=== PATIENT | female | born 1955 | race Caucasian/White ===

== ENCOUNTER 2017-02-04 17:40 | Emergency (ER) | payer MEDICARE, MEDICAID ==
[2017-02-04] MEDS ORDERED: cloNIDine HCl 0.1 MG TAB ONE (21:04)
== END 2017-02-04 23:04 | disposition home or self-care (01) ==
LOC: ERS 17:40
DX: T82.838A Hemorrhage due to vascular prosthetic devices, implants and grafts, initial encounter (principal); N18.9 Chronic kidney disease, unspecified; I12.9 Hypertensive chronic kidney disease with stage 1 through stage 4 chronic kidney disease, or unspecified chronic kidney disease; I48.91 Unspecified atrial fibrillation; Z79.82 Long term (current) use of aspirin; Z79.899 Other long term (current) drug therapy
CPT/HCPCS: 12001

== ENCOUNTER 2017-02-24 10:58 | Outpatient (CLI) | payer MEDICARE, MEDICAID ==
--- NOTE | 2017-02-24 14:27 | RAD ---
PA AND LATERAL VIEWS OF CHEST: History Dyspnea. FINDINGS: Comparison is made with the exam of 12/24/16. The heart is enlarged. The aorta is tortuous. There is pulmonary vascular congestion. With right pl eural effusion. No pneumothoraces are seen. IMPRESSION: Stable exam. POS: [facility]
== END 2017-02-24 10:59 | disposition home or self-care (01) ==
LOC: RAD 10:58
PROVIDERS: ATTEND Internal Medicine Pulmonary Disease
DX: R06.00 Dyspnea, unspecified (principal)
CPT/HCPCS: 71020

== ENCOUNTER 2017-06-23 12:47 | Outpatient (CLI) | payer MEDICARE, MEDICAID ==
--- NOTE | 2017-06-23 15:27 | RAD ---
CHEST TWO VIEWS: History: Evaluate for tuberculosis. Comparison: 02-24-17 FINDINGS: Persistent cardiomegaly. Chronic changes in the lung bases. Hyperinflation is noted. No evidence of a cavitary lesion in either lung apex. No pneumothorax. IMPRESSION: 1. Cardiomegaly. 2. Chronic changes throughout the lung parenchyma. 3. No cavitary lesion. POS: [facility]
== END 2017-06-23 12:48 | disposition home or self-care (01) ==
LOC: RAD 12:47
PROVIDERS: ATTEND Internal Medicine Nephrology
DX: Z11.1 Encounter for screening for respiratory tuberculosis (principal); I51.7 Cardiomegaly
CPT/HCPCS: 71046

== ENCOUNTER 2017-09-02 14:53 | Outpatient (CLI) | payer MEDICARE, MEDICAID ==
--- NOTE | 2017-09-02 15:24 | RAD ---
CHEST 2 VIEWS: Date 09/02/17 HISTORY: Dyspnea. COMPARISON: 06/23/17. FINDINGS: Cardiac silhouette remains enlarged. Pulmonary vasculature is more engorged with increased reticulono dular interstitial prominence. Right pleural fluid is stable. Mediastinum midline. Postoperative neil ges upper abdomen. IMPRESSION: Slight interval increase in radiographic appearance of pulmonary edema. Right pleural fluid and cardi omegaly appear stable. POS: [facility]
== END 2017-09-02 14:54 | disposition home or self-care (01) ==
LOC: RAD 14:53
PROVIDERS: ATTEND Internal Medicine Pulmonary Disease
DX: R06.00 Dyspnea, unspecified (principal); J90 Pleural effusion, not elsewhere classified; I51.7 Cardiomegaly
CPT/HCPCS: 71046

== ENCOUNTER 2017-12-03 10:56 | Inpatient (IN) | payer MEDICAID, MEDICARE ==
[2017-12-03] MEDS ORDERED: hydrALAZINE 20 MG/ML VIAL ONE (11:49)
--- NOTE | 2017-12-03 11:49 | CT ---
CT BRAIN WITHOUT CONTRAST: HISTORY: A 62-year-old female with slurred speech, confusion, left sided weakness, and a left facial droop. COMPARISON: 07/18/2016 FINDINGS: Changes of cortical atrophy and an old lacunar infarction in the left basal ganglia are again noted. The ventricular size is stable, and the basilar cisterns are patent. No evidence of acute infarct, hemorrhage, midline shift, or abnormal extraaxial fluid collections is seen. The bony calvarium is i ntact. The visualized paranasal sinuses and left mastoid air cells are well aerated. There is hypop lasia of the right mastoid air cells. IMPRESSION: No CT evidence of acute intracranial process. Discussed over the telephone with ER physician, Dr. Hanna, at 11:08 a.m. CODE CR POS: [facility]
[2017-12-03 11:58] LABS: #Basophils 0.2 thou/uL (0.0-0.2); #Eosinphils 0.1 thou/uL (0.0-0.7); #Lymphocytes 1.4 thou/uL (1.20-3.40); #Monocytes 0.9 thou/uL (0.11-0.59); #Neutrophils 7.7 thou/uL (1.40-6.50); %Basophils 1.8 % (0.0-1.0); %Eosinophils 0.7 % (0.0-10.0); %Lymphocytes 13.6 % (21.0-51.0); %Monocytes 8.7 % (0.0-10.0); %Neutrophils 75.2 % (42.0-75.0); Hemoglobin 11.9 g/dL (12.0-16.0); Platelet Count 233 thou/uL (130-400); RBC Distribution Width 13.9 % (11.5-14.5); Red Blood Cell (RBC) Count 3.59 mill/uL (4.20-5.40); White Blood Cell (WBC) Count 10.3 thou/uL (4.8-10.8)
[2017-12-03 12:06] LABS: PTT 30.5 SEC (22.9-36.1)
[2017-12-03 12:07] LABS: INR-International Normal Ratio 1.3; Prothrombin Time 16.6 SEC (12.0-14.7)
--- NOTE | 2017-12-03 12:12 | RAD ---
ONE VIEW CHEST: History: Stroke alert. Comparison: 10-02-16, 09-02-17 FINDINGS: There is an enlarged cardiac silhouette. The pulmonary vessels are slightly prominent. Pulmonary hilu m is unremarkable. There is persistent elevation right hemidiaphragm with blunting of the right costo phrenic angle likely due to areas of scar. Stable mild thickening of the minor fissure. Stable aerati on of the left lung. There is no pneumothorax or osseous abnormalities. IMPRESSION: Cardiomegaly. No acute cardiopulmonary process. No significant interval change. POS: [facility]
[2017-12-03 12:25] LABS: ALT (SGPT) 9 U/L (8-55); AST (SGOT) 22 U/L (5-34); Albumin 4.1 g/dL (3.4-4.8); Alkaline Phosphatase 90 U/L (40-150); Anion Gap 24 mmol/L (10-20); BUN (Urea Nitrogen) 65 mg/dL (9.8-20.1); Bilirubin, Total 1.6 mg/dL (0.2-1.2); CK (CPK) 209 U/L (29-168); Calc. Creatinine Clearance 0 mL/min (70-130); Calcium 9.6 mg/dL (7.8-10.44); Carbon Dioxide 21 mmol/L (23-31); Chloride 99 mmol/L (98-107); Estimated GFR-MDRD 3; Globulin 3.7 g/dL (2.4-3.5); Glucose 85 mg/dL (80-115); Protein, Total 7.8 g/dL (6.0-8.3); Sodium 137 mmol/L (136-145)
[2017-12-03] MEDS ORDERED: Ondansetron ODT 4 MG TAB ONE (12:28)
[2017-12-03 12:37] LABS: Potassium 7.2 mmol/L (3.5-5.1)
[2017-12-03] MEDS ORDERED: Calcium Gluc 4.6 MEQ/10 ML (100 MG/ML) ONE (12:57)
[2017-12-03 13:04] LABS: Bilirubin Negative (Negative); Blood, Urine Small (Negative); Clarity CLEAR (Clear); Glucose, Urine (Dipstick) Negative (Negative); Leukocyte Negative (Negative); Nitrite Negative (Negative); Protein, Urine (Dipstick) > or equal to 300 mg/dL (Neg-Trace); Urobilinogen 0.2 mg/dL (0.2-1.0)
[2017-12-03 13:10] LABS: Bacteria/HPF None Seen HPF (None Seen); Hyaline Casts/LPF NONE SEEN LPF (0-3 Hyaline); RBC/HPF 0-3 HPF (0-3); Squamous Epithelial 0-3 HPF (0-3); WBC/HPF None Seen HPF (0-3)
[2017-12-03 13:13] LABS: Amphetamine Not Detected (NotDetected); Barbiturates Screen Not Detected (NotDetected); Benzodiazepine Screen Not Detected (NotDetected); Cocaine Metabolite Screen Not Detected (NotDetected); Medtox Control Line Valid? VALID (VALID); Medtox Reader # READER 1; Methadone Not Detected (NotDetected); Methamphetamine Not Detected (NotDetected); Opiate Screen Not Detected (NotDetected); Oxycodone Screen Not Detected (NotDetected); Phencyclidine (PCP) Not Detected (NotDetected); THC/Cannabinoid Screen Not Detected (NotDetected); Tricyclic Screen Not Detected (NotDetected)
[2017-12-03] MEDS ORDERED: Acetaminophen 325 MG TAB PO PRN (15:34)
[2017-12-03] MEDS ORDERED: Ondansetron HCl/PF 4 MG/2 ML Vial IVP PRN (15:34)
[2017-12-03] MEDS ORDERED: Ondansetron ODT 4 MG TAB SL PRN (15:34)
[2017-12-03 17:03] LABS: Troponin I 0.046 ng/mL (< 0.028)
--- NOTE | 2017-12-03 18:41 | CON ---
DATE OF CONSULTATION: 12/03/2017 RENAL MEDICINE HISTORY OF PRESENT ILLNESS: Ms. Berry is a 62-year-old white female with ESRD and admitted for menta l status change. She was noted to have slurred speech with left-sided weakness. CT scan of the head was done which showed no acute intracranial abnormality. During the initial workup, she was noted t o be hyperkalemic, hence renal consultation. She is currently undergoing emergent hemodialysis for t he hyperkalemia. REVIEW OF SYSTEMS: Positive for confusion, positive for left-sided weakness. No nausea, no vomiting , no syncopal episode, no productive cough, no fever or chills, no headache, no diplopia, no hematoch ezia, no melena, no hematemesis. Positive for confusion. No fever or chills, no gross hematuria, no melena, no hematemesis. No nausea, no vomiting, no shortness of breath. HOME MEDICATIONS: Includes the following levetiracetam 250 mg once a day, metoprolol tartrate 100 mg b.i.d., diltiazem 90 mg once a day. Previous review of her records shows at one time, she was taking Eliquis 2.5 mg p.o. b.i.d., Lipitor 40 mg at bedtime, Multaq 400 mg p.o. b.i.d.?, Renvela 800 mg t.i.d. with meals. PAST MEDICAL HISTORY: Includes the following; seizure disorder, ? of atrial fibrillation, hyperlipid emia, ESRD, currently on maintenance hemodialysis Friday, Friday, and Friday, history of status po st CHF. PAST SURGICAL HISTORY: Includes the following, 1. Status post AV fistula placement. 2. Status post chest tube placement. 3. Status post pulmonary decortication. 4. Status post cuffed hemodialysis catheter placement. 5. Status post cardiac catheterization. 6. Status post cardiac ablation therapy. 7. Status post left nephrectomy. 8. Status post tonsillectomy. 9. Status post parathyroidectomy. 10. Status post splenectomy. SOCIAL HISTORY: Patient currently lives in [place], , 2 children, retired [employer]. No history of s moking, no alcohol intake, no drug abuse. Status post multiple blood transfusions. ALLERGIES: IV DYE and LEVAQUIN. TRAUMA: None. IMMUNIZATIONS: Up to date. HOSPITALIZATIONS: Please see past medical history. FAMILY HISTORY: No family history of ESRD. PHYSICAL EXAMINATION: VITAL SIGNS: Initial blood pressure 206/101, heart rate 73, respiratory rate 31, temperature 97.9, O 2 sat 93%. GENERAL: Awake, confused, not in overt distress. SKIN: Adequate turgor. HEENT: She has slightly pale conjunctivae, anicteric sclerae. NECK: No neck mass, no carotid bruits, no JVD. CHEST: No deformities. LUNGS: Clear breath sounds. HEART: Normal sinus rhythm. No murmur, no gallops, no rubs. ABDOMEN: Globular, soft, nontender, no masses. EXTREMITIES: No edema. NEUROLOGIC: Left-sided weakness. Patient is positive for confusion. No tremors or asterixis. LABORATORY DATA AND IMAGING DATA: Laboratories of 12/03/2017; white count 10.2, hemoglobin 11.9. CT scan of the head, no acute intracranial abnormality. Sodium 137, potassium 7.2, chloride 99, carbon dioxide 21, BUN 65, creatinine 12.77, glucose 85, calcium 9.6, AST 22, ALT 9, albumin 4.1, troponin I 0.040. Chest x-ray shows no CHF or infiltrates. ASSESSMENT AND PLAN: 1. Mental status change with left-sided weakness, rule out cerebrovascular accident. Patient's init ial CT scan is negative. Continue to observe. Neurology consult as needed. 2. End-stage renal disease - patient has missed dialysis for about a week. Due to the severe hyperk alemia, she is undergoing emergent hemodialysis. My plan is to continue her regular dialysis on , Friday, and Friday. Fluid removal only as tolerated. Overall, agree with current management. Recheck base met and CBC in a.m.
[2017-12-03] MEDS ORDERED: hydrALAZINE 20 MG/ML VIAL SLOW IVP SCH (19:15)
[2017-12-03] MEDS ORDERED: hydrALAZINE 20 MG/ML VIAL SLOW IVP PRN (20:31)
[2017-12-03] MEDS ORDERED: Ondansetron ODT 4 MG TAB PO PRN (20:31)
[2017-12-03] MEDS ORDERED: cloNIDine 0.1 MG TAB PO PRN (20:31)
[2017-12-03] MEDS ORDERED: Acetaminophen 500 MG TAB PO PRN (20:31)
[2017-12-03] MEDS: Famotidine/PF 20 mg/2ml Vial SLOW IVP SCH (21:30)
--- NOTE | 2017-12-03 23:32 | HP ---
DATE OF ADMISSION: 12/03/2017 PRIMARY CARE PROVIDER: Dr. Penelope Chong. CHIEF COMPLAINT: Altered mental status. HISTORY OF PRESENT ILLNESS: This is a 62-year-old female who presented to [facility] Emergency Department via EMS transport after patient was noted with decreased mentation, lethargy , slurred speech by her . The history is obtained after discussions with the ER attending as well as the patient's as the patient is unable to provide any coherent history due to letharg y and altered mentation. The patient was apparently noted with increasing lethargy approximately 11: 45 p.m. on 12/02/2017. The patient was noted with increasing lethargy, which prompted the patient to call EMS personnel after he was concerned the patient's presenting symptoms and signs that looked li ke a stroke. The patient apparently has missed her regular maintenance hemodialysis sessions over last week according to family members. In the emergency room, the patient underwent comprehensive evaluation including screening metabolic panel as well as CT of the brain showing no acute process. The patient was noted with elevated potassium at 7.2 and underwent emergent hemodialysis at [facility]. The patient also received albuterol, an amp of D50, Novolin R, calcium g luconate, Zofran, and hydralazine. The patient was transferred to the telemetry unit after emergent hemodialysis. PAST MEDICAL HISTORY: 1. End-stage renal disease with current hemodialysis Friday, Friday, and Friday. 2. Noncompliance. 3. Diastolic congestive heart failure. 4. Anemia secondary to chronic kidney disease. 5. History of epilepsy. 6. Paroxysmal atrial fibrillation. 7. Hypertension. 8. History of pleural effusion, status post PleurX catheter placement with subsequent removal. 9. Pulmonary hypertension. 10. History of CVA. PAST SURGICAL HISTORY: 1. Status post left nephrectomy. 2. Status post splenectomy. 3. Status post right upper extremity AV fistula placement. 4. Status post PEG tube placement. 5. Status post PleurX catheter placement with subsequent removal. 6. Status post decortication of the lung. 7. Status post thyroidectomy. 8. Status post tonsillectomy. CURRENT MEDICATIONS: Based on previous admission in 2017. 1. Eliquis 2.5 mg p.o. b.i.d. 2. Lipitor 40 mg p.o. daily. 3. Tums 1000 mg p.o. q.4 hours p.r.n. 4. Diltiazem 90 mg p.o. t.i.d. 5. Docusate 100 mg p.o. daily. 6. Multaq 400 mg p.o. b.i.d. 7. Procrit 7500 units subcutaneously q.7 days. 8. Folic acid 1 mg p.o. daily. 9. Renvela 800 mg p.o. t.i.d. 10. Metoprolol 100 mg p.o. b.i.d. 11. Aspirin 81 mg p.o. daily. 12. Keppra 250 mg Friday, Friday, and Friday after dialysis and 500 mg daily in addition to dialy sis. ALLERGIES: IODINE and LEVAQUIN. FAMILY HISTORY: Positive for hypertension. SOCIAL HISTORY: The patient resides in [place], [place]. No current alcohol, tobacco, or illicit drug u se. REVIEW OF SYSTEMS: Unobtainable as the patient obtunded with altered mentation. PHYSICAL EXAMINATION: VITAL SIGNS: Currently, blood pressure 207/97, pulse is 66, respiratory rate 18, temperature 96.4 de grees Fahrenheit, O2 saturation 97% on 2 liters per minute by nasal cannula. GENERAL APPEARANCE: This is a 62-year-old female, lethargic, unresponsive except for painf ul stimulus lying on the hospital bed. HEENT: Pupils are equal, round, and reactive to light and accommodation. Extraocular muscles are in tact. No scleral icterus, no conjunctival injection. Nares patent. OP is clear. Protuberant tongu e noted. NECK: Supple. No cervical adenopathy, no thyromegaly, no carotid bruits, no JVD appreciated. Cervi dany spine with full active and passive range of motion. CHEST: Lungs are clear to auscultation bilaterally. CARDIOVASCULAR: S1, S2, without noted murmur, rub, or gallop. ABDOMEN: Scaphoid, nontender. Bowel sounds are positive in all four quadrants. There is no hepatos plenomegaly, no abdominal bruits, no rebound or guarding appreciated. EXTREMITIES: Generalized muscle atrophy noted. No lower extremity edema noted. Pulses palpable dis tally at the dorsalis pedis, posterior tibial, and popliteal arteries bilaterally. Capillary refill less than 2 seconds. NEUROLOGIC: Obtunded except for responding to painful stimuli. Occasional movement of the left arm during the exam. PERTINENT LABORATORY AND X-RAY FINDINGS: Sodium 137, potassium 7.2, chloride 99, CO2 of 21, BUN 65, creatinine 12.77, estimated GFR 3, glucose 85, calcium 9.6, total bilirubin 1.6. AST 22, ALT 9, eva line phosphatase 90, total CK 209. Troponin I ranged between 0.040-0.050. Albumin 4.1. CBC showed a white blood cell count of 10.3, hemoglobin 12, hematocrit 37, MCV 103, platelet count 233 with 75% neutrophils. PT 16.6, INR 1.3, PTT 30.5. Urine drug screen dated 12/03/2017, negative. CT of the b rain without contrast dated 12/03/2017, showed no acute intracranial process. Portable chest x-ray d ated 12/03/2017 showed no acute cardiopulmonary process. EKG dated 12/03/2017 by my interpretation s hows sinus mechanism with heart rates in the 70s. Right bundle branch block pattern noted. Left axi s deviation. No acute ST-T wave changes appreciated. ASSESSMENT AND PLAN: 1. Acute toxic metabolic encephalopathy. Suspect secondarily to uremia. We will continue hemodialy sis for control of uremia. Continue supportive measures. Treat underlying etiology. Serial neurolo gic assessment. 2. Severe hyperkalemia. Secondary to missed hemodialysis stated previously. Emergent hemodialysis performed at the time of admission. Continue serial potassium as of trending. 3. End-stage renal disease with missed hemodialysis. We will continue maintenance hemodialysis at t he direction of the Nephrology Service. 4. Hypertension. Labile. We will resume home antihypertensive regimen when patient safe for oral i ntake. Hydralazine 20 mg IV q.4 hours p.r.n., systolic greater than 170. 5. Seizure disorder. We will resume home Keppra dosing after confirmation with family members. 6. Prophylaxis. Sequential compression devices while in bed. Pepcid 20 mg IV q.12 hours. PT evalu ation when ambulating and medically stable. 7. Code status is FULL. Surrogate medical decision maker is patient's spouse.
[2017-12-04] MEDS: Ondansetron HCl/PF 4 MG/2 ML Vial IVP PRN ×4 (00:34→21:50)
[2017-12-04 05:13] LABS: ALT (SGPT) 9 U/L (8-55); AST (SGOT) 16 U/L (5-34); Albumin 3.8 g/dL (3.4-4.8); Alkaline Phosphatase 81 U/L (40-150); Anion Gap 21 mmol/L (10-20); BUN (Urea Nitrogen) 21 mg/dL (9.8-20.1); Bilirubin, Total 1.3 mg/dL (0.2-1.2); Calc. Creatinine Clearance 7 mL/min (70-130); Carbon Dioxide 25 mmol/L (23-31); Chloride 98 mmol/L (98-107); Estimated GFR-MDRD 7; Globulin 3.5 g/dL (2.4-3.5); Glucose 63 mg/dL (80-115); Potassium 5.2 mmol/L (3.5-5.1); Protein, Total 7.3 g/dL (6.0-8.3); Sodium 139 mmol/L (136-145)
[2017-12-04 05:27] LABS: Band 2 % (5-11); Hemoglobin 11.2 g/dL (12.0-16.0); Lymphocytes 14 % (21-51); MDiff Complete? YES; Mean Corpuscular HGB CONC 32.4 g/dL (32.0-36.0); Mean Corpuscular Hemoglobin 33.4 pg (27.0-31.0); Monocytes 4 % (0-10); Neutrophil 80 % (42-75); Platelet Count 241 thou/uL (130-400); RBC Distribution Width 14.3 % (11.5-14.5); Red Blood Cell (RBC) Count 3.35 mill/uL (4.20-5.40); White Blood Cell (WBC) Count 9.3 thou/uL (4.8-10.8)
[2017-12-04] MEDS ORDERED: Prevnar 13-Val Conj/PF 0.5 ML SYRINGE IM ONE (09:00)
--- NOTE | 2017-12-04 09:44 | PRG ---
DATE OF SERVICE: 12/04/2017 SUBJECTIVE: Ms. Berry is a 62-year-old white female with ESRD and admitted for mental status change. She has not reported for dialysis for about a week. Due to the hyperkalemia yesterday, she underwe nt emergent hemodialysis. She is mentating better, although she is still occasionally confused. No complaints of chest pain or shortness of breath. PHYSICAL EXAMINATION: VITAL SIGNS: Blood pressure 155/73, heart rate 67, respiratory rate 16, temperature 97.9, pulse oxim etry 95%. GENERAL: Noted to be awake, supine, comfortable, not in overt distress. SKIN: Adequate turgor. HEENT: Pinkish conjunctivae, anicteric sclerae. NECK: No neck mass, no carotid bruits, no JVD. CHEST: No deformities. LUNGS: Clear breath sounds. No wheezing, no crackles. HEART: Normal sinus rhythm. No murmur, no gallops or rubs. ABDOMEN: Globular, soft, nontender, no masses. EXTREMITIES: No edema, no deformities. MEDICATIONS: 12/04/2017 - Reviewed. LABORATORY: 12/04/2017 - White count 9.3, hemoglobin 11.2. Sodium 139, potassium 5.2, chloride 98, carbon dioxide 25, BUN 21, creatinine 6.03, glucose 63, AST 16, ALT 9, albumin 3.8. ASSESSMENT AND PLAN: 1. Mental status change - much improved. CT scan of the brain did not show any acute intracranial a bnormality. This could be a reflection of possible uremic symptoms with this patient. We will cristino nue to Friday, Friday, Friday dialysis. No indication for any emergent dialysis today. 2. End-stage renal disease, stable. Continue Friday, Friday, Friday dialysis. Fluid removal as tolerated. 3. Hyperkalemia, much improved with dialysis. Continue supportive care.
--- NOTE | 2017-12-04 15:49 | PDOC.PN ---
- Subjective Encounter Start Date: 12/04/17 Encounter Start Time: 15:35 Subjective: f/u for encephalopathy due to uremia and life-threatening hyperkalemia -: tx with emergent HD. Overall feeling better, more alert. - Objective Resuscitation Status: Resuscitation Status FULL:Full Resuscitation MAR Reviewed: Yes Vital Signs & Weight: Vital Signs (12 hours) Temp Pulse Pulse Pulse Resp BP BP 12/04/17 15:12 98.4 F 68 16 12/04/17 11:44 97.7 F 67 18 12/04/17 09:40 72 71 139/67 153/76 H 12/04/17 07:39 97.9 F 67 16 12/04/17 03:56 98.6 F 67 22 H BP Pulse Ox Pulse Ox Pulse Ox 12/04/17 15:12 165/86 H 95 12/04/17 11:44 162/78 H 97 12/04/17 09:40 94 L 93 L 12/04/17 07:39 155/73 H 95 12/04/17 03:56 149/70 H 96 Weight Admit Weight 108 lb Weight 108 lb I&O: 12/03/17 12/04/17 12/05/17 06:59 06:59 06:59 Intake Total 0 Output Total 150 Balance -150 Result Diagrams: 12/04/17 04:02 12/04/17 04:02 Additional Labs: Microbiology 12/03/17 12:53 Urine Straight Catheter Urine Culture - Preliminary NO GROWTH AT 24 HOURS Laboratory Tests 12/03/17 12/03/17 12/03/17 11:45 11:45 11:45 Hgb 11.9 L Potassium 7.2 H* BUN 65 H Creatinine 12.77 H Troponin I 0.040 H 12/03/17 12/03/17 14:55 18:49 Hgb Potassium BUN Creatinine Troponin I 0.046 H 0.050 H Radiology Reviewed by me: Yes (CT brain - no acute intracranial process) EKG Reviewed by me: Yes (Tele - SR) Phys Exam - Physical Examination Constitutional: NAD protuberant tongue HEENT: PERRLA, sclera anicteric, oral pharynx no lesions Neck: no nodes, no JVD, supple, full ROM Respiratory: no wheezing, no rales, no rhonchi, clear to auscultation bilateral S1, S2 Cardiovascular: RRR, no significant murmur, no rub, gallop Gastrointestinal: soft, non-tender, no distention, positive bowel sounds Musculoskeletal: no edema, pulses present Neurological: normal sensation, moves all 4 limbs Skin: no rash, normal turgor, cap refill <2 seconds Dx/Plan (1) Acute hyperkalemia Code(s): E87.5 - HYPERKALEMIA Status: Acute Comment: s/p emergent HD with correction, serial K+ monitoring, secondary to non-compliance with HD (2) Toxic metabolic encephalopathy Code(s): G92 - TOXIC ENCEPHALOPATHY Status: Acute Comment: Likely due to uremia, improved, supportive mgmt, HD as outlined in #1 (3) Uremia of renal origin Code(s): N19 - UNSPECIFIED KIDNEY FAILURE Status: Acute Comment: See above, improved with HD (4) ESRD (end stage renal disease) on dialysis Code(s): N18.6 - END STAGE RENAL DISEASE; Z99.2 - DEPENDENCE ON RENAL DIALYSIS Status: Chronic Comment: HD per Renal service, encourage outpt compliance with HD - Plan PT/OT, social media job titles, out of bed/ambulate, DVT proph w/SCDs Stable overall -: Continue HD per Renal service -: Resume home BP regimen -: Restart Keppra -: AM lab: BMP, CBC * .
[2017-12-04] MEDS: Sevelamer Carbonate 800 MG TAB PO SCH (18:19)
[2017-12-04] MEDS: Metoprolol Tartrate 100 MG TAB PO SCH (21:50)
[2017-12-04] MEDS: Famotidine/PF 20 mg/2ml Vial SLOW IVP SCH (21:50)
[2017-12-05 04:49] LABS: #Basophils 0.2 thou/uL (0.0-0.2); #Eosinphils 0.3 thou/uL (0.0-0.7); #Lymphocytes 1.9 thou/uL (1.20-3.40); #Monocytes 0.7 thou/uL (0.11-0.59); #Neutrophils 5.8 thou/uL (1.40-6.50); %Basophils 1.7 % (0.0-1.0); %Eosinophils 3.1 % (0.0-10.0); %Lymphocytes 21.7 % (21.0-51.0); %Monocytes 8.3 % (0.0-10.0); %Neutrophils 65.2 % (42.0-75.0); Hemoglobin 11.1 g/dL (12.0-16.0); Mean Corpuscular HGB CONC 33.2 g/dL (32.0-36.0); Mean Corpuscular Hemoglobin 34.3 pg (27.0-31.0); Mean Platelet Volume 8.7 fL (7.4-10.4); Platelet Count 238 thou/uL (130-400); Red Blood Cell (RBC) Count 3.24 mill/uL (4.20-5.40); White Blood Cell (WBC) Count 8.9 thou/uL (4.8-10.8)
[2017-12-05 05:11] LABS: Anion Gap 16 mmol/L (10-20); BUN (Urea Nitrogen) 30 mg/dL (9.8-20.1); Calc. Creatinine Clearance 5 mL/min (70-130); Calcium 8.5 mg/dL (7.8-10.44); Carbon Dioxide 28 mmol/L (23-31); Chloride 97 mmol/L (98-107); Estimated GFR-MDRD 5; Glucose 87 mg/dL (80-115); Potassium 4.8 mmol/L (3.5-5.1); Sodium 136 mmol/L (136-145)
--- NOTE | 2017-12-05 07:33 | PRG ---
DATE OF SERVICE: 12/05/2017 SUBJECTIVE: Ms. Beryr was seen this morning. She is feeling better. She is less confused. She den ies any chest pain, shortness of breath. PHYSICAL EXAMINATION: VITAL SIGNS: Blood pressure is 167/76, heart rate 55, respiratory rate 20, temperature 97.4, pulse o x 96%. GENERAL: Awake, alert, comfortable, not in overt distress. SKIN: Adequate turgor. HEENT: She has pinkish conjunctivae, anicteric sclerae. NECK: No neck mass, no carotid bruits, no JVD. CHEST: No deformities. LUNGS: Clear breath sounds. No wheezing, no crackles. HEART: Normal sinus rhythm. No murmur, no gallops or rubs. ABDOMEN: Globular, soft, nontender, no masses. EXTREMITIES: No edema, no deformities. MEDICATIONS: 12/05/2017 - Reviewed. LABORATORY: 12/05/2017 - White count 8.9, hemoglobin 11.1. Sodium 136, potassium 4.8, chloride 97, carbon dioxide 28, BUN 30, creatinine 8.05, glucose 87, calcium 8.5. ASSESSMENT AND PLAN: 1. End-stage renal disease, stable. We will continue current Friday, Friday, Friday dialysis. A gain, fluid removal as tolerated. 2. Mental status change. This could have been secondary from her uremic symptoms since she did not dialyze for a week. After dialysis, her mentation is much improved. Continue supportive care. I agree with current management.
[2017-12-05] MEDS: Sevelamer Carbonate 800 MG TAB PO SCH ×3 (08:36→17:55)
[2017-12-05] MEDS: levETIRAcetam 500 MG TAB PO SCH ×2 (08:38→15:43)
[2017-12-05] MEDS: Metoprolol Tartrate 100 MG TAB PO SCH ×2 (08:38→20:07)
[2017-12-05] MEDS: Folic Acid 1 MG TAB PO SCH (13:00)
--- NOTE | 2017-12-05 13:57 | PDOC.PN ---
- Subjective Encounter Start Date: 12/05/17 Encounter Start Time: 13:45 Subjective: f/u for encephalopathy and ESRD with hyperkalemia. Overall improved -: and mentally clearer. HD completed today. - Objective Resuscitation Status: Resuscitation Status FULL:Full Resuscitation MAR Reviewed: Yes Vital Signs & Weight: Vital Signs (12 hours) Temp Pulse Resp BP Pulse Ox 12/05/17 12:55 98.4 F 58 L 16 155/71 H 93 L 12/05/17 08:57 178/95 H 12/05/17 07:38 97.6 F 60 16 191/92 H 92 L 12/05/17 04:00 97.4 F L 55 L 20 167/76 H 96 Weight Admit Weight 108 lb Weight 108 lb 9.6 oz I&O: 12/04/17 12/05/17 12/06/17 06:59 06:59 06:59 Intake Total 0 960 Output Total 150 50 Balance -150 910 Result Diagrams: 12/05/17 04:01 12/05/17 04:01 Additional Labs: Microbiology 12/03/17 12:53 Urine Straight Catheter Urine Culture - Final NO GROWTH AT 48 HOURS 12/03/17 12:53 Urine Straight Catheter Urine Culture - Preliminary NO GROWTH AT 24 HOURS Laboratory Tests 12/03/17 12/03/17 12/03/17 11:45 11:45 11:45 Hgb 11.9 L Potassium 7.2 H* BUN 65 H Creatinine 12.77 H Troponin I 0.040 H 12/03/17 12/03/17 14:55 18:49 Hgb Potassium BUN Creatinine Troponin I 0.046 H 0.050 H EKG Reviewed by me: Yes (Tele - SR in 50-60's) Phys Exam - Physical Examination awakens to name, responds briefly to questions + protuberant tongue HEENT: PERRLA, sclera anicteric, oral pharynx no lesions Neck: no nodes, no JVD, supple, full ROM Respiratory: no wheezing, no rales, no rhonchi, clear to auscultation bilateral S1, S2 Cardiovascular: RRR, no significant murmur, no rub, gallop Gastrointestinal: soft, non-tender, no distention, positive bowel sounds Musculoskeletal: no edema, pulses present Neurological: normal sensation, moves all 4 limbs A x O x 2 Skin: no rash, normal turgor, cap refill <2 seconds Dx/Plan (1) Acute hyperkalemia Code(s): E87.5 - HYPERKALEMIA Status: Acute Comment: s/p emergent HD with correction, serial K+ monitoring, secondary to non-compliance with HD (2) Toxic metabolic encephalopathy Code(s): G92 - TOXIC ENCEPHALOPATHY Status: Acute Comment: Likely due to uremia, improved, supportive mgmt, HD as outlined in #1 (3) Uremia of renal origin Code(s): N19 - UNSPECIFIED KIDNEY FAILURE Status: Acute Comment: See above, improved with HD (4) ESRD (end stage renal disease) on dialysis Code(s): N18.6 - END STAGE RENAL DISEASE; Z99.2 - DEPENDENCE ON RENAL DIALYSIS Status: Chronic Comment: HD per Renal service, encourage outpt compliance with HD (5) Hypertension Code(s): I10 - ESSENTIAL (PRIMARY) HYPERTENSION Status: Chronic Qualifiers: Hypertension type: essential hypertension Qualified Code(s): I10 - Essential (primary) hypertension Comment: labile, add Hydralazine 25mg TID, continue Metoprolol 100mg BID - Plan PT/OT, social media manager, out of bed/ambulate, DVT proph w/SCDs Stable overall -: Add Hydralazine 25mg po TID -: HD per Renal service -: OOB with PT -: Likely back to [place] [facility] 12/06/17 * .
[2017-12-05] MEDS: hydrALAZINE 25 MG TAB PO SCH ×2 (15:42→20:06)
[2017-12-05] MEDS: Famotidine 20 MG TAB PO SCH (20:07)
--- NOTE | 2017-12-06 08:12 | PDOC.PN ---
- Subjective Encounter Start Date: 12/06/17 Encounter Start Time: 08:10 Subjective: feels much better. no new complaints today -: denies any CP/SOB/Abd pain -: able to answer Qs appropriately - Objective Resuscitation Status: Resuscitation Status FULL:Full Resuscitation MAR Reviewed: Yes Vital Signs & Weight: Vital Signs (12 hours) Temp Pulse Resp BP Pulse Ox 12/06/17 05:28 99.2 F 56 L 16 134/62 95 Weight Admit Weight 108 lb Weight 103 lb 6.4 oz I&O: 12/05/17 12/06/17 12/07/17 06:59 06:59 06:59 Intake Total 960 1120 Output Total 50 0 Balance 910 1120 Result Diagrams: 12/05/17 04:01 12/05/17 04:01 Additional Labs: Microbiology 12/03/17 12:53 Urine Straight Catheter Urine Culture - Final NO GROWTH AT 48 HOURS Laboratory Tests 12/03/17 12/03/17 12/03/17 11:45 11:45 14:55 Potassium 7.2 H* Creatinine 12.77 H Troponin I 0.040 H 0.046 H 12/03/17 12/04/17 12/05/17 18:49 04:02 04:01 Potassium 5.2 H 4.8 Creatinine 6.03 H 8.05 H Troponin I 0.050 H labs reviewed Phys Exam - Physical Examination Constitutional: NAD HEENT: PERRLA, moist MMs, sclera anicteric, oral pharynx no lesions Neck: no nodes, no JVD, supple, full ROM Respiratory: no wheezing, no rales, no rhonchi, clear to auscultation bilateral Cardiovascular: RRR, no significant murmur, no rub Gastrointestinal: soft, non-tender, no distention, positive bowel sounds Musculoskeletal: no edema, pulses present Neurological: non-focal, normal sensation, moves all 4 limbs Psychiatric: normal affect, A&O x 3 Skin: no rash Dx/Plan (1) Acute hyperkalemia Code(s): E87.5 - HYPERKALEMIA Status: Acute Comment: s/p emergent HD with correction, serial K+ monitoring, secondary to non-compliance with HD (2) Toxic metabolic encephalopathy Code(s): G92 - TOXIC ENCEPHALOPATHY Status: Acute Comment: Likely due to uremia, improved, supportive mgmt, HD as outlined in #1 (3) Uremia of renal origin Code(s): N19 - UNSPECIFIED KIDNEY FAILURE Status: Acute Comment: See above, improved with HD (4) Acute on chronic kidney failure Code(s): N17.9 - ACUTE KIDNEY FAILURE, UNSPECIFIED; N18.9 - CHRONIC KIDNEY DISEASE, UNSPECIFIED Status: Chronic (5) Anemia, chronic renal failure Code(s): N18.9 - CHRONIC KIDNEY DISEASE, UNSPECIFIED; D63.1 - ANEMIA IN CHRONIC KIDNEY DISEASE Status: Chronic (6) Chronic a-fib Code(s): I48.2 - CHRONIC ATRIAL FIBRILLATION Status: Chronic Comment: patient can not confirm her Eliquis (7) Diastolic CHF Code(s): I50.30 - UNSPECIFIED DIASTOLIC (CONGESTIVE) HEART FAILURE Status: Chronic (8) ESRD (end stage renal disease) on dialysis Code(s): N18.6 - END STAGE RENAL DISEASE; Z99.2 - DEPENDENCE ON RENAL DIALYSIS Status: Chronic Comment: HD per Renal service, encourage outpt compliance with HD (9) Hypertension Code(s): I10 - ESSENTIAL (PRIMARY) HYPERTENSION Status: Chronic Qualifiers: Hypertension type: essential hypertension Qualified Code(s): I10 - Essential (primary) hypertension Comment: labile, added Hydralazine 25mg TID, continue Metoprolol 100mg BID (10) Seizure disorder Code(s): G40.909 - EPILEPSY, UNSP, NOT INTRACTABLE, WITHOUT STATUS EPILEPTICUS Status: Chronic (11) Chronic respiratory failure Code(s): J96.10 - CHRONIC RESPIRATORY FAILURE, UNSP W HYPOXIA OR HYPERCAPNIA Status: Chronic - Plan continue antibiotics, PT/OT, respiratory therapy, incentive spirometry, out of bed/ambulate, DVT proph w/SCDs HOME MEDICATIONS NOT CONFIRMED. -: cont supportive care -: DC plan discussed as clinically ready -: will order HH as per Pt wishes. -: encouraged to get home med list.? Eliquis * .BP better controlled w addition of hydralazine yesterday.Monitor * OK to transfer to [facility] * [facility] in am when HH is set up * HD per nephrology.monitor labs Review of Systems - Medications/Allergies Allergies/Adverse Reactions: Allergies Allergy/AdvReac Type Severity Reaction Status Date / Time iodine Allergy Verified 08/10/16 05:50 levofloxacin [From Levaquin] Allergy Verified 08/10/16 05:50 Medications: Current Medications Acetaminophen (Tylenol) 1,000 mg PO Q6H PRN PRN Reason: Headache/Fever or Mild Pain Aspirin (Aspirin Chewable) 81 mg PO DAILY [facility] Last Admin: 12/05/17 08:38 Dose: 81 mg Clonidine (Catapres) 0.1 mg PO Q4H PRN PRN Reason: Systolic BP > 180 Last Admin: 12/05/17 07:53 Dose: 0.1 mg Famotidine (Pepcid) 20 mg PO HS [facility] Last Admin: 12/05/17 20:07 Dose: 20 mg Folic Acid (Folvite) 1 mg PO DAILY [facility] Last Admin: 12/05/17 13:00 Dose: 1 mg Hydralazine HCl (Apresoline) 20 mg SLOW IVP Q4H PRN PRN Reason: SBP Greater Than 170 Last Admin: 12/03/17 23:56 Dose: 20 mg Hydralazine HCl (Apresoline) 25 mg PO TID [facility] Last Admin: 12/05/17 20:06 Dose: 25 mg Levetiracetam (Keppra) 250 mg PO MoWeFr [facility] Last Admin: 12/05/17 15:43 Dose: 250 mg Levetiracetam (Keppra) 500 mg PO DAILY [facility] Last Admin: 12/05/17 08:38 Dose: 500 mg Metoprolol Tartrate (Lopressor) 100 mg PO BID [facility] Last Admin: 12/05/17 20:07 Dose: 100 mg Ondansetron HCl (Zofran Odt) 4 mg PO Q6H PRN PRN Reason: Nausea/Vomiting Ondansetron HCl (Zofran) 4 mg IVP Q6H PRN PRN Reason: Nausea/Vomiting Last Admin: 12/04/17 21:50 Dose: 4 mg Sevelamer Carbonate (Renvela) 800 mg PO TID[facility] Last Admin: 12/05/17 17:55 Dose: Not Given
[2017-12-06] MEDS: levETIRAcetam 500 MG TAB PO SCH (09:55)
[2017-12-06] MEDS: Sevelamer Carbonate 800 MG TAB PO SCH ×3 (09:55→17:33)
[2017-12-06] MEDS: hydrALAZINE 25 MG TAB PO SCH ×3 (09:55→21:55)
[2017-12-06] MEDS: Folic Acid 1 MG TAB PO SCH (09:55)
[2017-12-06] MEDS: Metoprolol Tartrate 100 MG TAB PO SCH ×2 (09:56→21:54)
--- NOTE | 2017-12-06 11:21 | PRG ---
DATE OF SERVICE: 12/06/2017 RENAL MEDICINE SUBJECTIVE: Ms. Berry is a 62-year-old white female who was ESRD and followed by the Renal Service f or her maintenance hemodialysis. She underwent hemodialysis yesterday without any difficulty. No ne w complaints today. She is feeling better. Her mentation much improved. Please note she was initia lly admitted for mental status change. No other complaints today. PHYSICAL EXAMINATION: VITAL SIGNS: Blood pressure is 152/76, heart rate 53, respiratory rate 16, temperature 98.4, pulse o x 97%. GENERAL: Noted to be awake, alert, comfortable, not in overt distress. SKIN: Adequate turgor. HEENT: She has pinkish conjunctivae, anicteric sclerae. NECK: No neck mass, no carotid bruits, no JVD. CHEST: No deformities. LUNGS: Clear breath sounds. HEART: Normal sinus rhythm. No murmurs, no gallops, no rubs. ABDOMEN: Globular, soft, nontender, no masses. EXTREMITIES: No edema, no deformities. MEDICATIONS: Medications of 12/06/2017 was reviewed. LABORATORY DATA: Laboratories of 12/05/2017; white count 8.9, hemoglobin 11.1. Sodium 136, potassiu m 4.8, chloride 97, carbon dioxide 28, BUN 30, creatinine 8.05, glucose 87, calcium 8.5. ASSESSMENT AND PLAN: 1. Hyperkalemia, resolved. Continue current Friday, Friday and Friday dialysis. 2. End-stage renal disease, stable. Continuing Friday, Friday and Friday hemodialysis. Fluid re moval only as tolerated by the patient. Agree with current management. There is no indication for a ny dialytic intervention today. 3. Mental status change secondary to most likely uremic signs from uremic symptoms. Much improved w ith dialysis.
--- NOTE | 2017-12-06 12:17 | EKG ---
Test Reason : Blood Pressure : / mmHG Vent. Rate : 073 BPM Atrial Rate : 073 BPM P-R Int : 174 ms QRS Dur : 122 ms QT Int : 484 ms P-R-T Axes : 027 -38 030 degrees QTc Int : 533 ms Normal sinus rhythm Left axis deviation Right bundle branch block Minimal voltage criteria for LVH, may be normal variant Abnormal ECG Confirmed by JAMIE MEDEL ([id number]), sound editor JACOBO WELDON ([id number]) on 12/06/2017 12:17:41 PM Referred By: Confirmed By:JAMIE MEDEL
[2017-12-06] MEDS: Famotidine 20 MG TAB PO SCH (21:55)
[2017-12-07] MEDS: Sevelamer Carbonate 800 MG TAB PO SCH ×4 (08:28→17:56)
[2017-12-07] MEDS: hydrALAZINE 25 MG TAB PO SCH ×3 (08:29→20:17)
[2017-12-07] MEDS: Folic Acid 1 MG TAB PO SCH (08:31)
[2017-12-07] MEDS: levETIRAcetam 500 MG TAB PO SCH (08:31)
[2017-12-07] MEDS: Metoprolol Tartrate 100 MG TAB PO SCH ×3 (08:31→20:19)
--- NOTE | 2017-12-07 10:21 | PRG ---
DATE OF SERVICE: 12/07/2017 SUBJECTIVE: Ms. Berry is a 62-year-old white female being followed by the Renal Service for her ESRD . She was admitted for mental status change secondary to presumed uremia. She underwent emergent he modialysis at that time, her mentation is much improved. She is currently undergoing physical therap y. No other complaints today. The patient denies any chest pain or shortness of breath. OBJECTIVE: VITAL SIGNS: Blood pressure is 160/78, heart rate 53, respiratory rate 16, temperature 98, pulse ox 98%. GENERAL: Awake, supine, comfortable, not in overt distress. SKIN: Adequate turgor. HEENT: She has a pinkish conjunctivae, anicteric sclerae. NECK: No neck mass, no carotid bruits, no JVD. CHEST: No deformities. LUNGS: Clear breath sounds. HEART: Normal sinus rhythm. No murmur, no gallops, no rubs. ABDOMEN: Globular, soft, nontender, no masses. EXTREMITIES: No edema, no deformities. MEDICATIONS: 12/07/2017 was reviewed. LABORATORY DATA: 12/05/2017 - White count 8.9, hemoglobin 11.1. Sodium 136, potassium 4.8, chloride 97, carbon dioxide 28, BUN 30, creatinine 8.05, calcium 8.5. ASSESSMENT AND PLAN: 1. End-stage renal disease, stable. Continue current hemodialysis regimen. Fluid removal only as t olerated by the patient. She is tolerating her current Friday, Friday, Friday dialysis. 2. Mental status change - secondary to uremia - the patient is much improved with dialysis. Please note that she was admitted due to a missed dialysis of about a week and she developed uremic signs an d symptoms. 3. Hyperkalemia - initial potassium was 7.2 and the most recent one is 4.8. Continue low potassium diet. Continue hemodialysis regimen. We will recheck a base met and CBC in a.m.
[2017-12-07] MEDS ORDERED: Apixaban 2.5 MG TAB PO SCH (11:15)
--- NOTE | 2017-12-07 15:27 | PDOC.PN ---
- Subjective Encounter Start Date: 12/07/17 Encounter Start Time: 15:26 Subjective: feels nauseated this morning otherwise very weak -: no acute events - Objective Resuscitation Status: Resuscitation Status FULL:Full Resuscitation MAR Reviewed: Yes Vital Signs & Weight: Vital Signs (12 hours) Temp Pulse Resp BP BP Pulse Ox 12/07/17 15:12 53 L 129/60 12/07/17 08:29 53 L 160/78 H 12/07/17 08:00 98.0 F 53 L 16 93 L 12/07/17 07:57 98.0 F 53 L 16 136/72 98 12/07/17 04:00 98.1 F 54 L 16 134/68 Weight Admit Weight 108 lb Weight 107 lb I&O: 12/06/17 12/07/17 12/08/17 06:59 06:59 06:59 Intake Total 1120 485 Output Total 0 0 Balance 1120 485 Result Diagrams: 12/05/17 04:01 12/05/17 04:01 Additional Labs: Microbiology 12/03/17 12:53 Urine Straight Catheter Urine Culture - Final NO GROWTH AT 48 HOURS Phys Exam - Physical Examination Constitutional: NAD HEENT: PERRLA, moist MMs, sclera anicteric, oral pharynx no lesions Neck: no nodes, no JVD, supple, full ROM Respiratory: no wheezing, no rales, no rhonchi, clear to auscultation bilateral Cardiovascular: RRR, no significant murmur, no rub Gastrointestinal: soft, non-tender, no distention, positive bowel sounds Musculoskeletal: no edema, pulses present Neurological: non-focal, normal sensation, moves all 4 limbs Psychiatric: normal affect, A&O x 3 Skin: no rash Dx/Plan (1) Acute hyperkalemia Code(s): E87.5 - HYPERKALEMIA Status: Acute Comment: s/p emergent HD with correction, serial K+ monitoring, secondary to non-compliance with HD (2) Toxic metabolic encephalopathy Code(s): G92 - TOXIC ENCEPHALOPATHY Status: Acute Comment: Likely due to uremia, improved, supportive mgmt, HD as outlined in #1 (3) Uremia of renal origin Code(s): N19 - UNSPECIFIED KIDNEY FAILURE Status: Acute Comment: See above, improved with HD (4) Acute on chronic kidney failure Code(s): N17.9 - ACUTE KIDNEY FAILURE, UNSPECIFIED; N18.9 - CHRONIC KIDNEY DISEASE, UNSPECIFIED Status: Chronic (5) Anemia, chronic renal failure Code(s): N18.9 - CHRONIC KIDNEY DISEASE, UNSPECIFIED; D63.1 - ANEMIA IN CHRONIC KIDNEY DISEASE Status: Chronic (6) Chronic a-fib Code(s): I48.2 - CHRONIC ATRIAL FIBRILLATION Status: Chronic Comment: confirmed meds from Cardiology office.will restart eliquis (7) Diastolic CHF Code(s): I50.30 - UNSPECIFIED DIASTOLIC (CONGESTIVE) HEART FAILURE Status: Chronic (8) ESRD (end stage renal disease) on dialysis Code(s): N18.6 - END STAGE RENAL DISEASE; Z99.2 - DEPENDENCE ON RENAL DIALYSIS Status: Chronic Comment: HD per Renal service, encourage outpt compliance with HD (9) Hypertension Code(s): I10 - ESSENTIAL (PRIMARY) HYPERTENSION Status: Chronic Qualifiers: Hypertension type: essential hypertension Qualified Code(s): I10 - Essential (primary) hypertension Comment: labile, added Hydralazine 25mg TID, continue Metoprolol 100mg BID (10) Seizure disorder Code(s): G40.909 - EPILEPSY, UNSP, NOT INTRACTABLE, WITHOUT STATUS EPILEPTICUS Status: Chronic (11) Chronic respiratory failure Code(s): J96.10 - CHRONIC RESPIRATORY FAILURE, UNSP W HYPOXIA OR HYPERCAPNIA Status: Chronic - Plan plan discussed w/ family, continue antibiotics, PT/OT, respiratory therapy, incentive spirometry, out of bed/ambulate, DVT proph w/SCDs Pt needs Either SNIf or HH but uninsured.will have CM assist w [facility] -: restart eliquis.cont BB .HR controlled and NSR. -: meds refilled .will [facility] [employer] [facility] for help -: if arranged,pt OK to DC w OP HD tomorrow. -: O/W check labs in am * . Review of Systems - Review of Systems Constitutional: weakness, malaise. negative: fever, chills, sweats, other ENT: negative: Ear Pain, Ear Discharge, Nose Pain, Nose Discharge, Nose Congestion, Mouth Pain, Mouth Swelling, Throat Pain, Throat Swelling, Other Respiratory: negative: Cough, Dry, Shortness of Breath, Hemoptysis, SOB with Excertion, Pleuritic Pain, Sputum, Wheezing Cardiovascular: negative: chest pain, palpitations, orthopnea, paroxysmal nocturnal dyspnea, edema, light headedness, other Gastrointestinal: Nausea. negative: Vomiting, Abdominal Pain, Diarrhea, Constipation, Melena, Hematochezia, Other Genitourinary: negative: Dysuria, Frequency, Incontinence, Hematuria, Retention , Other Musculoskeletal: negative: Neck Pain, Shoulder Pain, Arm Pain, Back Pain, Hand Pain, Leg Pain, Foot Pain, Other Skin: negative: Rash, Lesions, [place], Bruising, Other Neurological: negative: Weakness, Numbness, Incoordination, Change in Speech, Confusion, Seizures, Other - Medications/Allergies Allergies/Adverse Reactions: Allergies Allergy/AdvReac Type Severity Reaction Status Date / Time iodine Allergy Verified 08/10/16 05:50 levofloxacin [From Levaquin] Allergy Verified 08/10/16 05:50 Medications: Current Medications Acetaminophen (Tylenol) 1,000 mg PO Q6H PRN PRN Reason: Headache/Fever or Mild Pain Last Admin: 12/06/17 16:00 Dose: 1,000 mg Apixaban (Eliquis) 2.5 mg PO BID [facility] Aspirin (Aspirin Chewable) 81 mg PO DAILY [facility] Last Admin: 12/07/17 08:28 Dose: 81 mg Clonidine (Catapres) 0.1 mg PO Q4H PRN PRN Reason: Systolic BP > 180 Last Admin: 12/05/17 07:53 Dose: 0.1 mg Famotidine (Pepcid) 20 mg PO HS [facility] Last Admin: 12/06/17 21:55 Dose: 20 mg Folic Acid (Folvite) 1 mg PO DAILY [facility] Last Admin: 12/07/17 08:31 Dose: 1 mg Hydralazine HCl (Apresoline) 20 mg SLOW IVP Q4H PRN PRN Reason: SBP Greater Than 170 Last Admin: 12/03/17 23:56 Dose: 20 mg Hydralazine HCl (Apresoline) 25 mg PO TID [facility] Last Admin: 12/07/17 15:12 Dose: Not Given Levetiracetam (Keppra) 250 mg PO MoWeFr [facility] Last Admin: 12/05/17 15:43 Dose: 250 mg Levetiracetam (Keppra) 500 mg PO DAILY [facility] Last Admin: 12/07/17 08:31 Dose: 500 mg Metoprolol Tartrate (Lopressor) 100 mg PO BID [facility] Last Admin: 12/07/17 08:31 Dose: Not Given Ondansetron HCl (Zofran Odt) 4 mg PO Q6H PRN PRN Reason: Nausea/Vomiting Last Admin: 12/07/17 12:06 Dose: 4 mg Ondansetron HCl (Zofran) 4 mg IVP Q6H PRN PRN Reason: Nausea/Vomiting Last Admin: 12/04/17 21:50 Dose: 4 mg Sevelamer Carbonate (Renvela) 800 mg PO TID[facility] Last Admin: 12/07/17 12:17 Dose: 800 mg
[2017-12-07] MEDS: Famotidine 20 MG TAB PO SCH (20:17)
[2017-12-07] MEDS: Apixaban 2.5 MG TAB PO SCH (20:17)
[2017-12-08 04:47] LABS: #Basophils 0.1 thou/uL (0.0-0.2); #Eosinphils 0.4 thou/uL (0.0-0.7); #Lymphocytes 1.7 thou/uL (1.20-3.40); #Monocytes 0.7 thou/uL (0.11-0.59); #Neutrophils 5.3 thou/uL (1.40-6.50); %Basophils 1.8 % (0.0-1.0); %Eosinophils 4.5 % (0.0-10.0); %Lymphocytes 20.9 % (21.0-51.0); %Monocytes 8.6 % (0.0-10.0); %Neutrophils 64.3 % (42.0-75.0); Hemoglobin 11.6 g/dL (12.0-16.0); Mean Corpuscular HGB CONC 32.8 g/dL (32.0-36.0); Mean Corpuscular Hemoglobin 33.8 pg (27.0-31.0); Mean Platelet Volume 8.5 fL (7.4-10.4); Platelet Count 231 thou/uL (130-400); RBC Distribution Width 14.3 % (11.5-14.5); Red Blood Cell (RBC) Count 3.42 mill/uL (4.20-5.40); White Blood Cell (WBC) Count 8.3 thou/uL (4.8-10.8)
[2017-12-08 05:05] LABS: Anion Gap 13 mmol/L (10-20); BUN (Urea Nitrogen) 33 mg/dL (9.8-20.1); Calc. Creatinine Clearance 5 mL/min (70-130); Calcium 8.3 mg/dL (7.8-10.44); Carbon Dioxide 27 mmol/L (23-31); Chloride 98 mmol/L (98-107); Estimated GFR-MDRD 4; Glucose 81 mg/dL (80-115); Potassium 4.3 mmol/L (3.5-5.1); Sodium 134 mmol/L (136-145)
[2017-12-08] MEDS: Sevelamer Carbonate 800 MG TAB PO SCH ×3 (08:19→15:49)
[2017-12-08] MEDS: hydrALAZINE 25 MG TAB PO SCH ×3 (08:19→21:10)
--- NOTE | 2017-12-08 09:02 | PRG ---
DATE OF SERVICE: 12/08/2017 SUBJECTIVE: Ms. Berry is a 62-year-old white female with ESRD and being followed by the Renal Servic e for her maintenance hemodialysis. She is undergoing hemodialysis this morning. I am at the [facility] e supervising her dialysis. She was initially admitted for mental status change secondary to uremia. She was also noted to be initially hyperkalemic. Her mental status is much improved and the hyperk alemia is resolved. No other complaints today, no chest pain or shortness of breath. OBJECTIVE: VITAL SIGNS: Blood pressure 137/67, heart rate 62, respiratory rate 16, temperature 98.1, pulse ox 9 6%. GENERAL: Noted to be awake, alert, supine, comfortable, not in overt distress. SKIN: Adequate turgor. HEENT: She has pinkish conjunctivae. Anicteric sclerae. NECK: No neck mass, no carotid bruits, no JVD. CHEST: No deformities. LUNGS: Clear breath sounds, no wheezing, no crackles. HEART: Normal sinus rhythm. No murmur, no gallops or rubs. ABDOMEN: Globular, soft, nontender, no masses. EXTREMITIES: No edema, no deformities. MEDICATIONS: 12/08/2017 - Reviewed. LABORATORY: 12/08/2017 - Sodium 134, potassium 4.3, chloride 98, carbon dioxide 27, BUN 33, creatini ne 8.93, glucose 81. White count 8.3, hemoglobin 11.6. ASSESSMENT AND PLAN: 1. End-stage renal disease, stable. Tolerating current hemodialysis regimen. Fluid removal only as tolerated. Continue Friday, Friday, Friday dialysis. 2. Hyperkalemia, resolved. 3. Mental status change secondary to uremia, resolved. Continue dialysis regimen. I agree with current management.
[2017-12-08] MEDS: levETIRAcetam 500 MG TAB PO SCH ×2 (12:35→15:49)
[2017-12-08] MEDS: Folic Acid 1 MG TAB PO SCH (12:35)
[2017-12-08] MEDS: Apixaban 2.5 MG TAB PO SCH ×2 (12:35→21:10)
[2017-12-08] MEDS: Metoprolol Tartrate 100 MG TAB PO SCH ×2 (12:39→21:11)
[2017-12-08 13:54] VITALS: BMI 19.4
--- NOTE | 2017-12-08 16:50 | PDOC.PN ---
- Subjective Encounter Start Date: 12/08/17 Encounter Start Time: 16:50 - Objective Resuscitation Status: Resuscitation Status FULL:Full Resuscitation Vital Signs & Weight: Vital Signs (12 hours) Temp Pulse Resp BP BP Pulse Ox 12/08/17 15:48 67 115/65 12/08/17 12:25 97.7 F 67 16 125/73 97 12/08/17 08:19 62 12/08/17 07:30 98.1 F 62 16 12/08/17 07:24 98.1 F 62 16 137/67 96 Weight Admit Weight 108 lb Weight 106 lb 5.863 oz I&O: 12/07/17 12/08/17 12/09/17 06:59 06:59 06:59 Intake Total 485 1300 Output Total 0 Balance 485 1300 Result Diagrams: 12/08/17 03:51 12/08/17 03:51 Dx/Plan (1) Acute hyperkalemia Code(s): E87.5 - HYPERKALEMIA Status: Acute Comment: s/p emergent HD with correction, serial K+ monitoring, secondary to non-compliance with HD (2) Toxic metabolic encephalopathy Code(s): G92 - TOXIC ENCEPHALOPATHY Status: Acute Comment: Likely due to uremia, improved, supportive mgmt, HD as outlined in #1 (3) Uremia of renal origin Code(s): N19 - UNSPECIFIED KIDNEY FAILURE Status: Acute Comment: See above, improved with HD (4) Acute on chronic kidney failure Code(s): N17.9 - ACUTE KIDNEY FAILURE, UNSPECIFIED; N18.9 - CHRONIC KIDNEY DISEASE, UNSPECIFIED Status: Chronic (5) Anemia, chronic renal failure Code(s): N18.9 - CHRONIC KIDNEY DISEASE, UNSPECIFIED; D63.1 - ANEMIA IN CHRONIC KIDNEY DISEASE Status: Chronic (6) Chronic a-fib Code(s): I48.2 - CHRONIC ATRIAL FIBRILLATION Status: Chronic Comment: confirmed meds from Cardiology office.will restart eliquis (7) Diastolic CHF Code(s): I50.30 - UNSPECIFIED DIASTOLIC (CONGESTIVE) HEART FAILURE Status: Chronic (8) ESRD (end stage renal disease) on dialysis Code(s): N18.6 - END STAGE RENAL DISEASE; Z99.2 - DEPENDENCE ON RENAL DIALYSIS Status: Chronic Comment: HD per Renal service, encourage outpt compliance with HD (9) Hypertension Code(s): I10 - ESSENTIAL (PRIMARY) HYPERTENSION Status: Chronic Qualifiers: Hypertension type: essential hypertension Qualified Code(s): I10 - Essential (primary) hypertension Comment: labile, added Hydralazine 25mg TID, continue Metoprolol 100mg BID (10) Seizure disorder Code(s): G40.909 - EPILEPSY, UNSP, NOT INTRACTABLE, WITHOUT STATUS EPILEPTICUS Status: Chronic (11) Chronic respiratory failure Code(s): J96.10 - CHRONIC RESPIRATORY FAILURE, UNSP W HYPOXIA OR HYPERCAPNIA Status: Chronic - Plan * . Review of Systems - Medications/Allergies Allergies/Adverse Reactions: Allergies Allergy/AdvReac Type Severity Reaction Status Date / Time iodine Allergy Verified 08/10/16 05:50 levofloxacin [From Levaquin] Allergy Verified 08/10/16 05:50 Medications: Current Medications Acetaminophen (Tylenol) 1,000 mg PO Q6H PRN PRN Reason: Headache/Fever or Mild Pain Last Admin: 12/06/17 16:00 Dose: 1,000 mg Apixaban (Eliquis) 2.5 mg PO BID [facility] Last Admin: 12/08/17 12:35 Dose: 2.5 mg Aspirin (Aspirin Chewable) 81 mg PO DAILY [facility] Last Admin: 12/08/17 12:35 Dose: 81 mg Clonidine (Catapres) 0.1 mg PO Q4H PRN PRN Reason: Systolic BP > 180 Last Admin: 12/05/17 07:53 Dose: 0.1 mg Famotidine (Pepcid) 20 mg PO HS [facility] Last Admin: 12/07/17 20:17 Dose: 20 mg Folic Acid (Folvite) 1 mg PO DAILY [facility] Last Admin: 12/08/17 12:35 Dose: 1 mg Hydralazine HCl (Apresoline) 20 mg SLOW IVP Q4H PRN PRN Reason: SBP Greater Than 170 Last Admin: 12/03/17 23:56 Dose: 20 mg Hydralazine HCl (Apresoline) 25 mg PO TID [facility] Last Admin: 12/08/17 15:48 Dose: Not Given Levetiracetam (Keppra) 250 mg PO MoWeFr [facility] Last Admin: 12/08/17 15:49 Dose: 250 mg Levetiracetam (Keppra) 500 mg PO DAILY [facility] Last Admin: 12/08/17 12:35 Dose: 500 mg Metoprolol Tartrate (Lopressor) 100 mg PO BID [facility] Last Admin: 12/08/17 12:39 Dose: 100 mg Ondansetron HCl (Zofran Odt) 4 mg PO Q6H PRN PRN Reason: Nausea/Vomiting Last Admin: 12/07/17 12:06 Dose: 4 mg Ondansetron HCl (Zofran) 4 mg IVP Q6H PRN PRN Reason: Nausea/Vomiting Last Admin: 12/04/17 21:50 Dose: 4 mg Sevelamer Carbonate (Renvela) 800 mg PO TID[facility] Last Admin: 12/08/17 15:49 Dose: 800 mg
--- NOTE | 2017-12-08 17:04 | PDOC.PN ---
- Subjective Encounter Start Date: 12/08/17 Encounter Start Time: 17:03 Subjective: no new complaints.feels well -: walked w PT - Objective Resuscitation Status: Resuscitation Status FULL:Full Resuscitation MAR Reviewed: Yes Vital Signs & Weight: Vital Signs (12 hours) Temp Pulse Resp BP BP Pulse Ox 12/08/17 15:48 67 115/65 12/08/17 12:25 97.7 F 67 16 125/73 97 12/08/17 08:19 62 12/08/17 07:30 98.1 F 62 16 12/08/17 07:24 98.1 F 62 16 137/67 96 Weight Admit Weight 108 lb Weight 106 lb 5.863 oz I&O: 12/07/17 12/08/17 12/09/17 06:59 06:59 06:59 Intake Total 485 1300 Output Total 0 Balance 485 1300 Result Diagrams: 12/08/17 03:51 12/08/17 03:51 Additional Labs: Microbiology 12/03/17 12:53 Urine Straight Catheter Urine Culture - Final NO GROWTH AT 48 HOURS Phys Exam - Physical Examination Constitutional: NAD HEENT: PERRLA, moist MMs, sclera anicteric, oral pharynx no lesions Neck: no nodes, no JVD, supple, full ROM Respiratory: no wheezing, no rales, no rhonchi, clear to auscultation bilateral Cardiovascular: RRR, no significant murmur, no rub Gastrointestinal: soft, non-tender, no distention, positive bowel sounds Musculoskeletal: no edema, pulses present Neurological: non-focal, normal sensation, moves all 4 limbs Dx/Plan (1) Acute hyperkalemia Code(s): E87.5 - HYPERKALEMIA Status: Acute Comment: s/p emergent HD with correction, serial K+ monitoring, secondary to non-compliance with HD (2) Toxic metabolic encephalopathy Code(s): G92 - TOXIC ENCEPHALOPATHY Status: Acute Comment: Likely due to uremia, improved, supportive mgmt, HD as outlined in #1 (3) Uremia of renal origin Code(s): N19 - UNSPECIFIED KIDNEY FAILURE Status: Acute Comment: See above, improved with HD (4) Acute on chronic kidney failure Code(s): N17.9 - ACUTE KIDNEY FAILURE, UNSPECIFIED; N18.9 - CHRONIC KIDNEY DISEASE, UNSPECIFIED Status: Chronic (5) Anemia, chronic renal failure Code(s): N18.9 - CHRONIC KIDNEY DISEASE, UNSPECIFIED; D63.1 - ANEMIA IN CHRONIC KIDNEY DISEASE Status: Chronic (6) Chronic a-fib Code(s): I48.2 - CHRONIC ATRIAL FIBRILLATION Status: Chronic Comment: confirmed meds from Cardiology office.will restart eliquis (7) Diastolic CHF Code(s): I50.30 - UNSPECIFIED DIASTOLIC (CONGESTIVE) HEART FAILURE Status: Chronic (8) ESRD (end stage renal disease) on dialysis Code(s): N18.6 - END STAGE RENAL DISEASE; Z99.2 - DEPENDENCE ON RENAL DIALYSIS Status: Chronic Comment: HD per Renal service, encourage outpt compliance with HD (9) Hypertension Code(s): I10 - ESSENTIAL (PRIMARY) HYPERTENSION Status: Chronic Qualifiers: Hypertension type: essential hypertension Qualified Code(s): I10 - Essential (primary) hypertension Comment: labile, added Hydralazine 25mg TID, continue Metoprolol 100mg BID (10) Seizure disorder Code(s): G40.909 - EPILEPSY, UNSP, NOT INTRACTABLE, WITHOUT STATUS EPILEPTICUS Status: Chronic (11) Chronic respiratory failure Code(s): J96.10 - CHRONIC RESPIRATORY FAILURE, UNSP W HYPOXIA OR HYPERCAPNIA Status: Chronic (12) Malnutrition of moderate degree Code(s): E44.0 - MODERATE PROTEIN-CALORIE MALNUTRITION Status: Chronic - Plan DVT proph w/SCDs cont HD per nephro. -: monitor renal Fx -: OK to DC when accepted at Rehab -: am labs * . Review of Systems - Review of Systems Constitutional: weakness, malaise. negative: fever, chills, sweats, other ENT: negative: Ear Pain, Ear Discharge, Nose Pain, Nose Discharge, Nose Congestion, Mouth Pain, Mouth Swelling, Throat Pain, Throat Swelling, Other Respiratory: negative: Cough, Dry, Shortness of Breath, Hemoptysis, SOB with Excertion, Pleuritic Pain, Sputum, Wheezing Cardiovascular: negative: chest pain, palpitations, orthopnea, paroxysmal nocturnal dyspnea, edema, light headedness, other Gastrointestinal: negative: Nausea, Vomiting, Abdominal Pain, Diarrhea, Constipation, Melena, Hematochezia, Other Genitourinary: negative: Dysuria, Frequency, Incontinence, Hematuria, Retention , Other Musculoskeletal: negative: Neck Pain, Shoulder Pain, Arm Pain, Back Pain, Hand Pain, Leg Pain, Foot Pain, Other Skin: negative: Rash, Lesions, Ju[place], Bruising, Other Neurological: negative: Weakness, Numbness, Incoordination, Change in Speech, Confusion, Seizures, Other - Medications/Allergies Allergies/Adverse Reactions: Allergies Allergy/AdvReac Type Severity Reaction Status Date / Time iodine Allergy Verified 08/10/16 05:50 levofloxacin [From Levaquin] Allergy Verified 08/10/16 05:50 Medications: Current Medications Acetaminophen (Tylenol) 1,000 mg PO Q6H PRN PRN Reason: Headache/Fever or Mild Pain Last Admin: 12/06/17 16:00 Dose: 1,000 mg Apixaban (Eliquis) 2.5 mg PO BID [facility] Last Admin: 12/08/17 12:35 Dose: 2.5 mg Aspirin (Aspirin Chewable) 81 mg PO DAILY [facility] Last Admin: 12/08/17 12:35 Dose: 81 mg Clonidine (Catapres) 0.1 mg PO Q4H PRN PRN Reason: Systolic BP > 180 Last Admin: 12/05/17 07:53 Dose: 0.1 mg Famotidine (Pepcid) 20 mg PO HS [facility] Last Admin: 12/07/17 20:17 Dose: 20 mg Folic Acid (Folvite) 1 mg PO DAILY [facility] Last Admin: 12/08/17 12:35 Dose: 1 mg Hydralazine HCl (Apresoline) 20 mg SLOW IVP Q4H PRN PRN Reason: SBP Greater Than 170 Last Admin: 12/03/17 23:56 Dose: 20 mg Hydralazine HCl (Apresoline) 25 mg PO TID [facility] Last Admin: 12/08/17 15:48 Dose: Not Given Levetiracetam (Keppra) 250 mg PO MoWeFr [facility] Last Admin: 12/08/17 15:49 Dose: 250 mg Levetiracetam (Keppra) 500 mg PO DAILY [facility] Last Admin: 12/08/17 12:35 Dose: 500 mg Metoprolol Tartrate (Lopressor) 100 mg PO BID [facility] Last Admin: 12/08/17 12:39 Dose: 100 mg Ondansetron HCl (Zofran Odt) 4 mg PO Q6H PRN PRN Reason: Nausea/Vomiting Last Admin: 12/07/17 12:06 Dose: 4 mg Ondansetron HCl (Zofran) 4 mg IVP Q6H PRN PRN Reason: Nausea/Vomiting Last Admin: 12/04/17 21:50 Dose: 4 mg Sevelamer Carbonate (Renvela) 800 mg PO TID-[facility] Last Admin: 12/08/17 15:49 Dose: 800 mg
[2017-12-08] MEDS: Famotidine 20 MG TAB PO SCH (21:10)
[2017-12-09] MEDS: hydrALAZINE 25 MG TAB PO SCH ×2 (08:09→15:23)
[2017-12-09] MEDS: Apixaban 2.5 MG TAB PO SCH (08:09)
[2017-12-09] MEDS: Sevelamer Carbonate 800 MG TAB PO SCH ×2 (08:09→12:32)
[2017-12-09] MEDS: Folic Acid 1 MG TAB PO SCH (08:09)
[2017-12-09] MEDS: Metoprolol Tartrate 100 MG TAB PO SCH (08:10)
[2017-12-09] MEDS: levETIRAcetam 500 MG TAB PO SCH (08:10)
--- NOTE | 2017-12-09 09:31 | PRG ---
DATE OF SERVICE: 12/09/2017 SUBJECTIVE: Ms. Berry is a 62-year-old white female with ESRD and we [facility] She underwent dialysis yesterday without any difficulty. Today, she voices no new complaints. She is ambulating well with physical therapy. The patient denies any chest pain, no shortness of breath. Please note the patient was initially admitted for mental status change sec ondary to uremic symptoms. This was resolved with emergent hemodialysis. Also initially potassium w as elevated. This improved with dialysis. PHYSICAL EXAMINATION: VITAL SIGNS: Blood pressure is 143/67, heart rate 60, respiratory rate 18, temperature 98.2, pulse o x 92%. GENERAL: She is noted to be awake, supine, comfortable, not in distress. SKIN: Adequate turgor. HEENT: She has pinkish conjunctivae, anicteric sclerae. NECK: No neck mass, no carotid bruits, no JVD. CHEST: No deformities. LUNGS: Clear breath sounds. HEART: Normal sinus rhythm. No murmur, no gallops, no rubs. ABDOMEN: Globular, soft, nontender, no masses. EXTREMITIES: No edema. MEDICATIONS: 12/09/2017 - Reviewed. LABORATORY DATA: 12/08/2017 - White count 8.3, hemoglobin 11.6. Sodium 134, potassium 4.3, chloride 98, carbon dioxide 27, BUN 33, creatinine 8.93, glucose 81, calcium 8.3. ASSESSMENT AND PLAN: 1. End-stage renal disease, stable. We will continue current Friday, Friday, Friday dialysis reg imen with this patient. Fluid removal only as tolerated. Using minimal to no heparin use. 2. Mental status change - resolved with dialysis. 3. Hyperkalemia, resolved. Continuing regular dialysis regimen. I agree with current management. We will recheck base met and CBC in a.m. if the patient is still he re.
[2017-12-09 15:09] VITALS: TEMP 97.6
[2017-12-09 15:23] VITALS: BP 130/70
--- NOTE | 2017-12-09 23:48 | DIS ---
DATE OF ADMISSION: 12/03/2017 DATE OF DISCHARGE: 12/09/2017 CONDITION AT THE TIME OF DISCHARGE: Stable and improved. DISCHARGE DISPOSITION: [facility]. DISCHARGE MEDICATIONS: Are as follows; Keppra 500 mg daily and 250 mg Friday, Friday, and Friday; Renvela 800 mg p.o. t.i.d.; Zofran p.r.n. as needed; metoprolol tartrate 100 mg p.o. b.i.d.; folic a amber 1 mg daily; epoetin 7500 every 7 days; docusate p.r.n.; Lipitor 40 mg daily; aspirin 81 mg daily; Eliquis 2.5 mg p.o. b.i.d. PRIMARY CARE PHYSICIAN: Penelope Chong M.D. DISCHARGE DIAGNOSES: 1. Uremia due to missed hemodialysis. 2. Hyperkalemia due to missed hemodialysis. 3. End-stage renal disease, on hemodialysis. 4. Chronic diastolic congestive heart failure. 5. Anemia of chronic kidney disease. 6. History of epilepsy. 7. Paroxysmal atrial fibrillation, chronic anticoagulation. 8. Hypertension. 9. Pulmonary hypertension. 10. History of pleural effusion. 11. History of cerebrovascular accident. 12. Moderate to severe malnutrition with a BMI of 19.4. 13. Chronic respiratory failure on home oxygen 2 liters. PROCEDURES DONE IN THE HOSPITAL: 1. CT scan of the brain upon presentation, which is unremarkable. 2. Maintenance hemodialysis. CONSULTATIONS INHOUSE: Nephrology, Dr. Mello. HOSPITAL COURSE: Ms. Berry is a 62-year-old female with known history of end-stage renal disease on hemodialysis, who was brought in by EMS for altered mental status, lethargy and slurred speech. It w as found out that the patient has missed hemodialysis for almost a week as her family member who brin gs her in was out of town. CT scan done in the ER showed no acute process. She was found to have el evated potassium of 7.2 and underwent hemodialysis by Nephrology. She also received albuterol D50 wi th insulin, as well as calcium gluconate, Zofran and hydralazine in the ER. Please see admission his tory and physical for further details. She was admitted with a presumptive diagnosis of acute toxic metabolic encephalopathy due to uremia. HOSPITAL COURSE: The patient's rest of the hospitalization was unremarkable. Her mental status grad ually improved to the point where she was back to her baseline. Medications were reconciled. The pa aida and her significant other did not have any list of the medication as they use of multiple pharm acies and they report that they have her home medications lost when EMS transferred them to the [facility]. Medications are confirmed from her director report, Dr. Albert's office to the best of my knowle dge. They were titrated based on her blood pressure and heart rate. She will follow with primary ca re physician for further adjustments. She was seen by OT, PT and rehab was recommended for her and that is why patient agreed to. She was discharged to [facility]. She was seen and examined prior to discharge. PHYSICAL EXAMINATION: VITAL SIGNS: This morning, temperature 97.6, pulse of 55, respirations 14, saturating 96% on 2.5 lit er nasal cannula, blood pressure 130/75. Discharge plan was discussed with the patient who verbalized understanding. Total time spent 35 minutes.
== END 2017-12-09 16:15 | DRG 640 ==
LOC: ERS 10:56 → 2NO 14:00 → T4-A 12-06 20:51
PROVIDERS: ADMIT Family Medicine; ATTEND Family Medicine
PROC: 5A1D70Z Performance of Urinary Filtration, Intermittent, Less than 6 Hours Per Day (ICD-10-PCS; principal; 2017-12-03)
PROC: 5A1D70Z Performance of Urinary Filtration, Intermittent, Less than 6 Hours Per Day (ICD-10-PCS; 2017-12-05)
PROC: 5A1D70Z Performance of Urinary Filtration, Intermittent, Less than 6 Hours Per Day (ICD-10-PCS; 2017-12-08)
DX: E87.5 Hyperkalemia (principal); G92 Toxic encephalopathy; E43 Unspecified severe protein-calorie malnutrition; N18.6 End stage renal disease; N17.9 Acute kidney failure, unspecified; I13.2 Hypertensive heart and chronic kidney disease with heart failure and with stage 5 chronic kidney disease, or end stage renal disease; I50.32 Chronic diastolic (congestive) heart failure; J96.10 Chronic respiratory failure, unspecified whether with hypoxia or hypercapnia; Z91.15 Patient's noncompliance with renal dialysis; D63.1 Anemia in chronic kidney disease; I48.2 Chronic atrial fibrillation; Z99.2 Dependence on renal dialysis; G40.909 Epilepsy, unspecified, not intractable, without status epilepticus; Z87.442 Personal history of urinary calculi; I48.0 Paroxysmal atrial fibrillation; Z86.73 Personal history of transient ischemic attack (TIA), and cerebral infarction without residual deficits; Z79.01 Long term (current) use of anticoagulants; I27.20 Pulmonary hypertension, unspecified
CPT/HCPCS: 36415; 36416; 51701; 70450; 71045; 80048; 80053; 80306; 81003; 81015; 82550; 82553; 84484; 85007; 85025; 85027; 85610; 85730; 86850; 86900; 86901; 86922; 87086; 90935; 93005; 94760; 96374; 96375; A4216; G0257; G8978-GP-CL; G8979-GP-CJ; G8987-GO-CJ; G8988-GO-CI; J0360; J2405; Q0162; S0028

== ENCOUNTER 2018-02-22 20:30 | Outpatient (CLI) | payer MEDICARE | END 2018-02-22 20:31 | disposition home or self-care (01) | LOC: SLEEPLAB 20:30 | PROVIDERS: ATTEND Internal Medicine Geriatric Medicine | DX: G47.9 Sleep disorder, unspecified (principal); G47.33 Obstructive sleep apnea (adult) (pediatric); R06.89 Other abnormalities of breathing; R53.83 Other fatigue; R06.83 Snoring; G47.10 Hypersomnia, unspecified; I12.0 Hypertensive chronic kidney disease with stage 5 chronic kidney disease or end stage renal disease; N18.6 End stage renal disease; G47.00 Insomnia, unspecified; I48.92 Unspecified atrial flutter; G47.31 Primary central sleep apnea; R09.02 Hypoxemia; Z68.21 Body mass index [BMI] 21.0-21.9, adult | CPT/HCPCS: 95811 ==

== ENCOUNTER 2019-01-26 18:57 | Emergency (ER) | payer MEDICARE ==
--- NOTE | 2019-01-26 20:06 | RAD ---
XR Hand Rt 3 View STANDARD History: Pain Comparison: None. Findings: No acute fracture or malalignment. Soft tissues are unremarkable. Impression: No acute osseous abnormality.
== END 2019-01-26 21:06 | disposition home or self-care (01) ==
LOC: ERS 18:57
DX: M79.641 Pain in right hand (principal); I48.91 Unspecified atrial fibrillation; I10 Essential (primary) hypertension; Z99.2 Dependence on renal dialysis; Z79.899 Other long term (current) drug therapy; Z79.01 Long term (current) use of anticoagulants

== ENCOUNTER 2019-02-05 23:14 | Inpatient (IN) | payer MEDICARE ==
--- NOTE | 2019-02-05 23:47 | CT ---
EXAM: CT brain without contrast HISTORY: Left arm and leg numbness. Stroke alert. COMPARISON: 12/03/2017 TECHNIQUE: Multiple contiguous axial images were obtained and a CT of the brain without contrast. FINDINGS: There are scattered hypodensities in the subcortical and periventricular white matter consi stent with small vessel ischemic disease. There is no evidence of hydrocephalus, intracranial hemorrhage, or extra-axial fluid collection. The calvarium and overlying soft tissues are unremarkable. A mucus retention cyst is seen in the righ t maxillary sinus. The other visualized paranasal sinuses and mastoid air cells are well aerated. IMPRESSION: No evidence of acute intracranial abnormality Dr. Gibson notified of the findings at 11:45 PM on 02/05/2019.
[2019-02-06 00:13] LABS: INR-International Normal Ratio 1.1; PTT 25.8 SEC (22.9-36.1); Prothrombin Time 13.8 SEC (12.0-14.7)
[2019-02-06 00:26] LABS: Hemoglobin 12.3 g/dL (12.0-16.0); Mean Corpuscular HGB CONC 32.2 g/dL (32.0-36.0); Mean Corpuscular Hemoglobin 33.2 pg (27.0-31.0); Mean Platelet Volume 9.8 fL (7.4-10.4); Platelet Count 209 thou/uL (130-400); RBC Distribution Width 11.9 % (11.5-14.5); White Blood Cell (WBC) Count 8.6 thou/uL (4.8-10.8)
[2019-02-06 00:33] LABS: ALT (SGPT) 9 U/L (8-55); AST (SGOT) 24 U/L (5-34); Albumin 3.9 g/dL (3.4-4.8); Alkaline Phosphatase 112 U/L (40-110); Anion Gap 20 mmol/L (10-20); BUN (Urea Nitrogen) 24 mg/dL (9.8-20.1); Bilirubin, Total 0.4 mg/dL (0.2-1.2); Calc. Creatinine Clearance 0 mL/min (70-130); Calcium 7.5 mg/dL (7.8-10.44); Carbon Dioxide 24 mmol/L (23-31); Chloride 97 mmol/L (98-107); Estimated GFR-MDRD 6; Glucose 85 mg/dL (80-115); Potassium 5.1 mmol/L (3.5-5.1); Protein, Total 7.9 g/dL (6.0-8.3); Sodium 136 mmol/L (136-145)
[2019-02-06 00:41] LABS: Band 3 % (5-11); Eosinophils 3 % (0-10); Lymphocytes 16 % (21-51); MDiff Complete? YES; Monocytes 6 % (0-10); Neutrophil 72 % (42-75); Platelet Morphology Comment Appears Adequate; RBC Morphology Normal
[2019-02-06 00:48] LABS: CKMB 1.3 ng/mL (0-6.6)
[2019-02-06] MEDS ORDERED: Aspirin Chewable 81 MG TAB ONE (01:20)
[2019-02-06 02:52] VITALS: BMI 23.6
[2019-02-06 05:54] LABS: Cardiac Risk 4.1 (Less than 4.5)
[2019-02-06] MEDS ORDERED: Acetaminophen 325 MG TAB PO PRN (07:42)
[2019-02-06] MEDS ORDERED: Ondansetron PF 4 MG/2 ML Vial IVP PRN (07:42)
[2019-02-06 08:14] LABS: Albumin 3.6 g/dL (3.4-4.8); Anion Gap 19 mmol/L (10-20); BUN (Urea Nitrogen) 18 mg/dL (9.8-20.1); BUN/Creatinine Ratio 2.57; Calc. Creatinine Clearance 7 mL/min (70-130); Calcium 7.3 mg/dL (7.8-10.44); Carbon Dioxide 29 mmol/L (23-31); Chloride 94 mmol/L (98-107); Estimated GFR-MDRD 6; Glucose 97 mg/dL (80-115); Phosphorus 7.3 mg/dL (2.3-4.7); Potassium 4.2 mmol/L (3.5-5.1); Sodium 138 mmol/L (136-145)
--- NOTE | 2019-02-06 08:30 | HP ---
CHIEF COMPLAINT: Numbness of left side of face and extremities. PRIMARY CARE PHYSICIAN: Brianne Whiteside MD HISTORY OF PRESENT ILLNESS: A 63-year-old female with known history of end- stage renal disease on hemodialysis, nephrolithiasis, parathyroid tumor status post partial resection as well as atrial fibrillation status post ablation on chronic anticoagulation with Eliquis, who presents with acute onset of left-sided facial numbness and upper and lower left extremity numbness. Symptom reportedly started yesterday prior to presentation to the ER. She also reported difficulty closing her mouth, which has resolved at this time. The patient also reported that the numbness of the lower extremities and upper extremities as well as the face has improved, though persists. She denied initial headache, which has resolved, but denied dizziness, nausea, weakness, involuntary movement, difficulty swallowing, speech disorder, nausea, vomiting, chest pain, abdominal pain, dysuria, hematuria, leg swelling, or change in bowel habit. The patient is on hemodialysis Friday, Friday, Friday. Had last dialysis yesterday before the onset of symptoms. PAST MEDICAL HISTORY: 1. End-stage renal disease, on hemodialysis Friday, Friday, Friday. 2. Diastolic heart failure. 3. History of epilepsy. 4. Paroxysmal atrial fibrillation. 5. Hypertension. 6. History of pleural effusion status post PleurX catheter placement with subsequent removal. 7. Pulmonary hypertension. 8. History of prior CVA. 9. History of parathyroid cancer. 10. Nephrolithiasis. PAST SURGICAL HISTORY: 1. Left nephrectomy. 2. Splenectomy. 3. Partial parathyroidectomy. 4. Status post ablation of atrial fibrillation. 5. PleurX catheter placement and subsequent removal. 6. Right upper extremity AV fistula placement. 7. Decortication of lung. 8. Tonsillectomy. FAMILY HISTORY: Positive for hypertension. SOCIAL HISTORY: The patient lives with spouse. Denied alcohol, tobacco, or recreational drug use. The patient wants to be full code. Spouse is the surrogate decision maker. ALLERGIES: IODINE AND LEVAQUIN. CURRENT HOME MEDICATIONS: 1. Lanthanum carbonate 1000 mg p.o. t.i.d. 2. Zofran 4 mg q.6 p.r.n. 3. Eliquis 2.5 mg p.o. b.i.d. 4. Metoprolol 100 mg p.o. b.i.d. 5. Losartan 25 mg p.o. daily. REVIEW OF SYSTEMS: Twelve-point review of systems performed was negative other than pertinent positives and negatives included in the history of present illness. PHYSICAL EXAMINATION: VITAL SIGNS: Temperature 98.2, pulse 72, respiratory rate 18, SpO2 of 92% on room air, blood pressure 161/76. GENERAL: Comfortable female, in no obvious distress. Afebrile. Anicteric. Acyanotic. HEENT: Normocephalic, atraumatic. Oral mucosa is moist. Pupils are 3 to 4 mm, symmetric and reacting to light. NECK: Supple with no obvious masses or lymphadenopathy. CARDIOVASCULAR: Regular rhythm and rate with normal. heart sounds 1 and 2. RESPIRATORY: Good air entry bilaterally with no crackle or rhonchi or use of accessory muscles. GI: Full, soft, nontender, nondistended with normal bowel sounds. EXTREMITIES: Grossly normal looking atraumatic with no edema or erythema. Right extremity AV fistula with some aneurysmal dilatations noted. SKIN: Grossly normal with no obvious rash or erythema. WORKDAY DIRECTOR: Conscious, alert, and oriented x3 with appropriate mental status. Cranial nerves 2 through 12 are grossly intact. However, there is a subjective decreased sensation on the left lower face. Face, however, is symmetrical with good motor function. The patient moves all extremities with equal power 5/5 with no pronator drift of upper and lower extremities. There is mildly decreased sensation to gross touch on the distal forearm and hand of left upper extremity as well as distal leg and feet on the left side. There is no involuntary movement observed. PSYCHIATRIC: Normal affect and cooperative. DIAGNOSTIC DATA: CBC on presentation on February 05 showed WBC of 8.6, hemoglobin of 12.3, MCV of 103, platelet of 209. CMP on presentation showed sodium 136, potassium 5.1, chloride 97, CO2 of 24, BUN 24, creatinine 6.43, glucose 85, calcium 7.5, total bilirubin 0.4, AST 24, alkaline phosphatase 112, ALT 9, total protein 7.9, albumin 3.9, globulin 4.0. Cardiac markers on presentation showed troponin of 0.046. Cardiac markers showed CK-MB of 1.3 and troponin of 0.046. IMAGING STUDIES: CT scan of the brain showed no acute intracranial abnormality. EKG showed no obvious ischemic changes. ASSESSMENT: 1. Left-sided facial and extremity numbness: Improved, but persisted. Differentials include acute cerebrovascular accident or neuropathy due to electrolyte derangement. Patient has hypocalcemia. 2. Hypocalcemia: The patient has prior history of parathyroidectomy and is not on any calcium supplementation. Calcium currently is 7.5. This is low when corrected for albumin of 3.9. 3. Hypertension. 4. Nephrolithiasis status post left nephrectomy. 5. Paroxysmal atrial fibrillation on anticoagulation with Eliquis. 6. End-stage renal disease, on hemodialysis, Friday, Friday, Friday with last dialysis on February 05, 2019. 7. Troponin elevation PLAN: 1. We get serial troponin to rule out acute myocardial infarction. 2. We will also get ionized calcium and supplement if needed. 3. We will also get MRI of the brain to rule out acute cerebrovascular accident. 4. We will also get carotid Doppler and echocardiogram as well as lipid panel. 5. We will start the patient on Lipitor. 6. We will continue anticoagulation with Eliquis. 7. We will also start the patient on aspirin 81 mg p.o. daily. 8. Neurology consult will be requested. 9. Code status, full code. The patient's spouse is the surrogate decision maker. Job ID: [id number] MTDD
[2019-02-06 09:52] LABS: Actual Bicarbonate (HCO3a) 27.6 mEq/L (22-28); Base Excess (BEa) 3.1 mEq/L (-2.0 to +3.0); CO2 Tension 41.7 mmHg (35.0-45.0); Calcium, Ionized 0.91 mmol/L (1.12-1.30); Carboxyhemoglobin (COHb) 1.1 gm% (0.0-3.0); Hemoglobin (Hb) 13.8 g/dL (12.0-16.0); O2 Tension (PaO2) 66.8 mmHg (> 80.0); Potassium - ABG Lab 4.28 mmol/L (3.70-5.30); pH, Arterial 7.44 (7.35-7.45)
[2019-02-06] MEDS: Cyanocobalamin (Vitamin B-12) 1,000 MCG TAB PO SCH (09:53)
[2019-02-06] MEDS: Metoprolol Tartrate 50 MG TAB PO SCH ×2 (09:53→21:51)
[2019-02-06] MEDS: Aspirin 81 mg Enteric Coated Tablet PO SCH (09:53)
[2019-02-06] MEDS: Apixaban 2.5 MG TAB PO SCH ×2 (09:53→21:51)
[2019-02-06] MEDS: Folic Acid 1 MG TAB PO SCH (09:53)
[2019-02-06] MEDS: Multivit, Therapeutic 1 TAB PO SCH (09:53)
[2019-02-06 10:13] LABS: ALV-art Gradient 30.805 (0-20); Puncture Site LRA
[2019-02-06] MEDS: Lanthanum Carbonate 500 mg Tablet PO SCH ×3 (11:53→21:51)
--- NOTE | 2019-02-06 13:12 | MRI ---
MRI BRAIN NONCONTRAST: DATE: 02/06/2019 HISTORY: 63-year-old female with hypesthesia (numbness) of left upper extremity and left side of face. Rule ou t stroke. FINDINGS: There is no obstructive hydrocephalus. There is no midline shift or any other evidence of mass effect . There is no extra-axial fluid collection. There is a moderate-severe degree of T2-hyperintensities in the cerebral white matter consistent with chronic ischemic white matter change s due to microvascular atherosclerosis. There is no evidence of recent hemorrhage or restricted diffusion. IMPRESSION: 1) moderate-severe chronic ischemic white matter changes. 2) otherwise negative
--- NOTE | 2019-02-06 13:23 | CON ---
DATE OF CONSULTATION: 02/06/2019 This consult is performed via telemedicine. CHIEF COMPLAINT: Left-sided numbness. HISTORY OF PRESENT ILLNESS: The patient is a 63-year-old right-handed lady, who reports that she was sitting at her dining table looking at Facebook last night when she developed left-sided numbness, which was sudden onset. She tried to drink water and even her throat was numb, she felt mild weakness on the left side. She does not take aspirin, but is on Eliquis for her cardiac issue. She did not experience any dizziness or double vision, loss of consciousness. PREVIOUS MEDICAL HISTORY: She has a complex previous medical history with history of hypertension, pleural effusion, pulmonary hypertension, CVA, parathyroid cancer, nephrolithiasis, paroxysmal atrial fibrillation, history of epilepsy, and end-stage renal disease on hemodialysis three times a week. PREVIOUS SURGICAL HISTORY: Left nephrectomy four years ago for kidney stones; splenectomy 26 years ago when she was kicked by a horse; parathyroidectomy four years ago; cardiac ablation procedure four years ago; decortication of her lung three years ago and she also had an AV fistula placement and tonsillectomy. FAMILY HISTORY: Positive for kidney stones in her brother. Mother of CVA. Father of congestive heart failure. Her son who was 19-year-old from a motor vehicle accident. Her daughter is now 44-year-old. Both her parents in their 70s to 80s. ALLERGIES: SHE IS ALLERGIC TO IODINE AND LEVAQUIN. SOCIAL HISTORY: She lives with her . No alcohol, drug, or tobacco use. MEDICATIONS: Medication list from home noted. She is on lanthanum carbonate, Zofran, Eliquis, metoprolol, and losartan. REVIEW OF SYSTEMS: PULMONARY: Negative for shortness of breath and cough. GI: Negative for nausea, vomiting, and diarrhea. CARDIAC: Negative for chest pain and palpitations, but positive for paroxysmal atrial fibrillation. NEUROLOGIC: Positive for numbness on the left side and mild weakness. DERMATOLOGICAL: Negative for any skin lesions. HEMATOLOGIC: Negative for bleeding diatheses. OPHTHALMOLOGIC: Negative for any blurred vision or loss of vision. LABORATORY WORKUP: Her current lab workup; white count 8.6, hemoglobin 12.3, hematocrit 38.1, and platelet count 209. PT 13.8, INR 1.1, and PTT 25.8. Chemistry; sodium 138, potassium 4.2, chloride 94, bicarb 29, BUN 18, creatinine 7, glucose 97, calcium 7.3, phosphorus 7.3, troponin 0.050, serum protein is 3.6, vitamin B12 of 2.84, folate 6.60, and her CT of the head was completed and she is pending an MRI. CT did not show any evidence of acute intracranial abnormalities and I am unable to find a CT angio on this patient. PHYSICAL EXAMINATION: VITAL SIGNS: The patient's blood pressure was 157/70, temperature 98.2, pulse rate 69, respiratory rate 24, and O2 saturations 93%. CHEST: Clear vesicular breathing. CARDIOVASCULAR: S1 and S2 heard. No murmurs. ABDOMEN: Soft and nontender. No organomegaly noted. NEUROLOGIC: Higher intellectual functions. Normal orientation to time, place, and person and appropriate conversation. Cranial nerves II through XII normal, extraocular movements, she had numbness of the left side of the face. Tongue midline. No atrophy noted. Normal elevation of palate. Normal hearing to finger rub bilaterally. Pupils were 3 mm bilaterally, reactive to light and motor examination; bulk normal. Tone normal. Strength 5/5 in upper and lower extremities in iliopsoas, hamstrings, quadriceps, ankle dorsiflexion, plantar flexion and deltoid biceps, triceps, wrist extension and flexion, finger extension and flexion bilaterally and gait, not testable. Cerebellar; normal [id number], [id number]. Sensory; diminished on the left side to touch in upper and lower extremities and face. IMPRESSION: The patient is a very pleasant 63-year-old lady with multiple medical issues. Her stroke risk factors include hypertension and paroxysmal atrial fibrillation. She did have prior history of seizures a few years ago, but stopped seizure medications one year ago. At this time, her primary issue is left-sided numbness. On exam, she has left face, arm, and leg numbness. No weakness was detected. Diagnosis is consistent with most likely a lacunar infarct in the right thalamus secondary to hypertension. TREATMENT RECOMMENDATIONS: 1. Please complete her MRI scan and I will follow up on that. 2. Complete carotid Doppler study, echocardiogram, and lipid profile for stroke workup. Please start her on aspirin and statin. I will follow up with patient tomorrow. Job ID: [id number]
--- NOTE | 2019-02-06 13:35 | ULT ---
Ultrasound Doppler duplex carotid: DATE: 02/06/2019 HISTORY: 63-year-old female with CVA. TECHNIQUE: Grayscale, color-flow, and spectral analysis, of major arteries of neck. FINDINGS: The study is limited because of tortuosity of blood vessels, especially internal carotid arteries. Highest peak systolic velocities in the internal carotid arteries: 48 cm/s on the right and 45 cm/s o n the left. Mild atherosclerosis of distal common carotid arteries and proximal internal carotid arteries. Vertebral artery flow antegrade bilaterally. IMPRESSION: 1. Mild atherosclerosis of carotids. 2. No hemodynamically significant stenosis identified.
[2019-02-06] MEDS ORDERED: Calcium Gluconate 100 MG/ML 10 ML IVPB SCH (21:30)
[2019-02-06] MEDS: Atorvastatin Calcium 40 MG TAB PO SCH (21:51)
[2019-02-06] MEDS ORDERED: Calcium Gluconate 9.2 MEQ in Sodium Chloride 0.9% 100 ML IVPB SCH (22:15)
[2019-02-07 04:38] LABS: #Basophils 0.1 thou/uL (0.0-0.2); #Eosinphils 0.4 thou/uL (0.0-0.7); #Lymphocytes 2.5 thou/uL (1.20-3.40); #Monocytes 0.8 thou/uL (0.11-0.59); #Neutrophils 5.8 thou/uL (1.40-6.50); %Basophils 1.1 % (0.0-1.0); %Eosinophils 4.2 % (0.0-10.0); %Lymphocytes 26.4 % (21.0-51.0); %Monocytes 8.2 % (0.0-10.0); %Neutrophils 60.1 % (42.0-75.0); Hemoglobin 11.3 g/dL (12.0-16.0); Platelet Count 241 thou/uL (130-400); RBC Distribution Width 12.1 % (11.5-14.5); Red Blood Cell (RBC) Count 3.41 mill/uL (4.20-5.40); White Blood Cell (WBC) Count 9.6 thou/uL (4.8-10.8)
[2019-02-07 04:59] LABS: Albumin 3.3 g/dL (3.4-4.8); Anion Gap 19 mmol/L (10-20); BUN (Urea Nitrogen) 42 mg/dL (9.8-20.1); BUN/Creatinine Ratio 4.44; Calc. Creatinine Clearance 5 mL/min (70-130); Calcium 7.4 mg/dL (7.8-10.44); Carbon Dioxide 26 mmol/L (23-31); Chloride 95 mmol/L (98-107); Estimated GFR-MDRD 4; Glucose 82 mg/dL (80-115); Phosphorus 8.2 mg/dL (2.3-4.7); Potassium 5.2 mmol/L (3.5-5.1); Sodium 135 mmol/L (136-145)
[2019-02-07] MEDS: Lanthanum Carbonate 500 mg Tablet PO SCH ×3 (09:06→22:27)
[2019-02-07] MEDS: Aspirin 81 mg Enteric Coated Tablet PO SCH (09:06)
[2019-02-07] MEDS: Metoprolol Tartrate 50 MG TAB PO SCH ×2 (09:06→22:27)
[2019-02-07] MEDS: Folic Acid 1 MG TAB PO SCH (09:06)
[2019-02-07] MEDS: Multivit, Therapeutic 1 TAB PO SCH (09:06)
[2019-02-07] MEDS: Apixaban 2.5 MG TAB PO SCH ×2 (09:06→22:27)
[2019-02-07] MEDS: Cyanocobalamin (Vitamin B-12) 1,000 MCG TAB PO SCH (09:06)
[2019-02-07] MEDS: Ondansetron ODT 4 MG TAB PO PRN ×2 (09:10→15:44)
--- NOTE | 2019-02-07 11:58 | PRG ---
DATE OF SERVICE: 02/07/2019 CHIEF COMPLAINT: Acute stroke. INTERVAL HISTORY: The patient has done well since yesterday. She is back to her baseline. She still complains of some sensory symptom MRI showed moderate to severe chronic white matter changes, otherwise negative for any acute events. Labs today; white count 9.6, hemoglobin 11.3, hematocrit 35.2, and platelet count 241. Chemistry; sodium 135, potassium 5.2, chloride 95, bicarb 26, BUN 42, creatinine 9.46, glucose 82, calcium 7.4, phosphorus 8.2, and folate 6.60. PHYSICAL EXAMINATION: VITAL SIGNS: Blood pressure was 143/68, pulse is 66, temperature 98.3, and respiratory rate 16. GENERAL APPEARANCE: Thin built, well-nourished lady. NEUROLOGIC: Higher intellectual functions. Normal orientation to time, place, and person. Appropriate conversation. Cranial nerves, normal extraocular movements. No facial asymmetry. Normal sensation of face bilaterally. Motor exam, bulk normal. Tone normal. Strength 5/5 bilaterally. Sensory, normal to touch bilaterally. IMPRESSION: The patient is a 63-year-old lady with likely microvascular ischemic event, which seems to have resolved at this time. She has no neurological deficits. Her exam today is normal, even though she still has some subjective symptoms of numbness. TREATMENT RECOMMENDATIONS: Please continue aspirin and statin and she can follow up with Neurology as outpatient. Job ID: [id number]
[2019-02-07] MEDS ORDERED: Ergocalciferol 1.25 MG(50,000 UNITS) CAP PO SCH (16:00)
--- NOTE | 2019-02-07 18:17 | PDOC.HOSPP ---
- Subjective Encounter Date: 02/07/19 Encounter Time: 10:16 Subjective: 63 y/o female with ESRD on HD admitted with acute left numbness. Thought to have Acute CVA but MRI was negative. Found also to have hypocalcemia. Feeling better. Still with mild subjective numbness of left upper limb. - Objective Vital Signs & Weight: Vital Signs (12 hours) Temp Pulse Pulse Pulse Resp BP BP 02/07/19 15:51 98.2 F 69 20 02/07/19 11:32 98.0 F 70 16 02/07/19 11:17 72 70 170/77 H 157/74 H 02/07/19 09:00 02/07/19 08:04 98.3 F 66 16 02/07/19 08:00 BP Pulse Ox 02/07/19 15:51 140/65 90 L 02/07/19 11:32 169/73 H 97 02/07/19 11:17 02/07/19 09:00 94 L 02/07/19 08:04 143/68 H 88 L 02/07/19 08:00 94 L Weight Weight 129 lb 7 oz I&O: 02/06/19 02/07/19 02/08/19 06:59 06:59 06:59 Intake Total 1202 Output Total 1 Balance 1201 Result Diagrams: 02/07/19 04:08 02/07/19 04:04 Hospitalist ROS - Medication Medications: Active Medications Generic Name Dose Route Start Last Admin Trade Name Freq PRN Reason Stop Dose Admin Apixaban 2.5 mg 02/06/19 09:00 02/07/19 09:06 Eliquis PO 2.5 mg BID CRYS Administration Aspirin 81 mg 02/06/19 09:00 02/07/19 09:06 Ecotrin PO 81 mg DAILY CRYS Administration Atorvastatin Calcium 40 mg 02/06/19 21:00 02/06/19 21:51 Lipitor PO 40 mg HS CRYS Administration Cyanocobalamin 1,000 mcg 02/06/19 09:00 02/07/19 09:06 Vitamin B-12 PO 1,000 mcg DAILY CRYS Administration Folic Acid 1 mg 02/06/19 09:00 02/07/19 09:06 Folvite PO 1 mg DAILY CRYS Administration Lanthanum Carbonate 500 mg 02/06/19 09:00 02/07/19 15:42 Fosrenol PO 500 mg TID CRYS Administration Metoprolol Tartrate 100 mg 02/06/19 09:00 02/07/19 09:06 Lopressor PO 100 mg BID CRYS Administration Multivitamins 1 tab 02/06/19 09:00 02/07/19 09:06 Theragran PO 1 tab DAILY CRYS Administration Ondansetron HCl 4 mg 02/06/19 07:42 02/07/19 15:44 Zofran Odt PO 4 mg Q6H PRN Administration Nausea/Vomiting Ondansetron HCl 4 mg 02/06/19 07:42 02/06/19 23:13 Zofran IVP 4 mg Q6H PRN Administration Nausea/Vomiting Sodium Chloride 10 ml 02/06/19 07:42 02/06/19 23:13 Flush - Normal Saline IVF 10 ml PRN PRN Administration Saline Flush - Exam General Appearance: awake alert Eye: anicteric sclera ENT: normocephalic atraumatic Neck: supple Heart: RRR Respiratory: CTAB, no rales, no ronchi, normal chest expansion Gastrointestinal: soft, non-tender, non-distended, normal bowel sounds Extremities: no edema Neurological: cranial nerve grossly intact, no focal deficits Neurological - other findings: subjeective decreased sensation of left upper limb Psychiatric: normal affect, A&O x 3 Hosp A/P (1) Acute CVA (cerebrovascular accident) Code(s): I63.9 - CEREBRAL INFARCTION, UNSPECIFIED Status: Acute (2) Acute hyperkalemia Code(s): E87.5 - HYPERKALEMIA Status: Acute (3) PAF (paroxysmal atrial fibrillation) Code(s): I48.0 - PAROXYSMAL ATRIAL FIBRILLATION Status: Acute (4) Hyperkalemia Code(s): E87.5 - HYPERKALEMIA Status: Acute (5) Hypocalcemia Code(s): E83.51 - HYPOCALCEMIA Status: Acute (6) Vitamin D deficiency Code(s): E55.9 - VITAMIN D DEFICIENCY, UNSPECIFIED Status: Acute (7) Nephrolithiasis Status: Acute (8) ESRD (end stage renal disease) on dialysis Code(s): N18.6 - END STAGE RENAL DISEASE; Z99.2 - DEPENDENCE ON RENAL DIALYSIS Status: Chronic - Plan Give kayexalate Consult nephrology for HD Start Vit supplementation Constinue statin and aspirin Continue anticoagulation with eliaquis.
[2019-02-07] MEDS: Atorvastatin Calcium 40 MG TAB PO SCH (22:27)
[2019-02-08 06:31] LABS: Albumin 3.6 g/dL (3.4-4.8); Anion Gap 25 mmol/L (10-20); BUN (Urea Nitrogen) 62 mg/dL (9.8-20.1); BUN/Creatinine Ratio 5.25; Calc. Creatinine Clearance 4 mL/min (70-130); Calcium 6.8 mg/dL (7.8-10.44); Carbon Dioxide 22 mmol/L (23-31); Chloride 94 mmol/L (98-107); Estimated GFR-MDRD 3; Glucose 102 mg/dL (80-115); Phosphorus 8.6 mg/dL (2.3-4.7); Potassium 4.8 mmol/L (3.5-5.1); Sodium 136 mmol/L (136-145)
[2019-02-08 07:49] VITALS: BP 152/72; TEMP 98.4
[2019-02-08] MEDS ORDERED: Calcium Carbonate + Vit D 1 TAB PO SCH (08:00)
--- NOTE | 2019-02-08 08:20 | PDOC.EVN ---
Event Note - Event Note Event Note: Discharge summary dictated. #[id number]
--- NOTE | 2019-02-08 08:46 | DIS ---
DATE OF ADMISSION: 02/06/2019 DATE OF DISCHARGE: 02/08/2019 PRIMARY CARE PHYSICIAN: Brianne Whiteside MD. DISCHARGE DIAGNOSES: 1. Presumed acute cerebrovascular accident. 2. Left-sided facial and extremity numbness. 3. Hypocalcemia. 4. Vitamin D deficiency. 5. Hypertension. 6. Nephrolithiasis. 7. Paroxysmal atrial fibrillation, on chronic anticoagulation with Eliquis. 8. Troponin elevation/demand ischemia of the myocardium. 9. End-stage renal disease, on hemodialysis. 10. Hyperkalemia. 11. Bilateral carotid atherosclerosis. 12. Severe tricuspid regurgitation. 13. Moderate mitral regurgitation. 14. Moderate to severe chronic ischemic white matter changes. CONSULT: Neurology. HOSPITAL COURSE: A 63-year-old female with known history of end-stage renal disease, on hemodialysis, nephrolithiasis, parathyroid tumor, status post resection as well as atrial fibrillation, status post ablation, on chronic anticoagulation with Eliquis, admitted with acute onset of left-sided facial and left extremity numbness. There was no associated motor weakness, dizziness, nausea, vomiting, or chest pain. Impression of acute CVA was made. The patient was treated with aspirin and statin. Neurology consult was obtained and impression of likely lacunar infarct in the right thalamus was made. However, further evaluation with MRI showed no acute infarct, but moderate to severe chronic white matter disease was noted. Carotid Dopplers showed mild atherosclerosis of both carotids and echocardiogram showed severe tricuspid regurgitation as well as moderate mitral regurgitation with preserved systolic function with EF of 50% to 55%. Gradually the numbness improved and patient was back to baseline. The patient also was found to have hypocalcemia, which was treated with supplementation and she was also found to have vitamin D deficiency and was hence started on supplementation. She remained stable and was subsequently discharged home. PHYSICAL EXAMINATION: VITAL SIGNS: Temperature 98.4, pulse 64, respiratory rate 16, SpO2 of 92 on room air, blood pressure is 152/72. GENERAL: Comfortable female, in no distress. Afebrile. Anicteric. Acyanotic. HEENT: Normocephalic, atraumatic. Oral mucosa is moist. CARDIOVASCULAR: Regular rhythm and rate with soft systolic murmur. RESPIRATORY: Good air entry bilaterally with no crackle or rhonchi or use of accessory muscles. ABDOMEN: Full, soft, nontender, nondistended with normal bowel sounds. EXTREMITIES: Grossly normal looking atraumatic with no edema or erythema. MUFFLER MECHANIC: Conscious, alert, oriented x3 with appropriate mental status. Cranial nerves 2 through 12 are grossly intact. The patient moves all extremities symmetrically with equal power. Mild subjective sensation decreased on the left forearm noted. The patient is ambulant. DISCHARGE CONDITION: Improved. DISCHARGE DISPOSITION: Home. FOLLOWUP: Follow up with PCP in 7 days and to continue with usual dialysis at dialysis unit. DISCHARGE MEDICATIONS: 1. Lanthanum carbonate mg p.o. t.i.d. 2. Zofran 4 mg q.6 p.r.n. 3. Eliquis 2.5 mg p.o. b.i.d. 4. Aspirin 81 mg p.o. daily. 5. Lipitor 40 mg p.o. daily at bedtime. 6. Vitamin D with calcium 1 tab p.o. daily. 7. Ergocalciferol 1.25 mg q.7 days x6 capsules. 8. Metoprolol 100 mg p.o. b.i.d. Discharge took more than 30 minutes. Job ID: [id number]
== END 2019-02-08 09:06 | disposition home or self-care (01) | DRG 91 ==
LOC: ERS 23:14 → EDBD 02-06 02:25 → 2SE 02-06 02:25
PROVIDERS: ADMIT Internal Medicine; ATTEND Internal Medicine
DX: R90.82 White matter disease, unspecified (principal); N18.6 End stage renal disease; I13.0 Hypertensive heart and chronic kidney disease with heart failure and stage 1 through stage 4 chronic kidney disease, or unspecified chronic kidney disease; I24.8 Other forms of acute ischemic heart disease; G81.92 Hemiplegia, unspecified affecting left dominant side; R40.2252 Coma scale, best verbal response, oriented, at arrival to emergency department; R40.2142 Coma scale, eyes open, spontaneous, at arrival to emergency department; R40.2362 Coma scale, best motor response, obeys commands, at arrival to emergency department; I48.0 Paroxysmal atrial fibrillation; E83.51 Hypocalcemia; E87.5 Hyperkalemia; I65.23 Occlusion and stenosis of bilateral carotid arteries; I07.1 Rheumatic tricuspid insufficiency; I34.0 Nonrheumatic mitral (valve) insufficiency; Z99.2 Dependence on renal dialysis; Z90.81 Acquired absence of spleen; Z90.5 Acquired absence of kidney; Z90.89 Acquired absence of other organs; Z79.899 Other long term (current) drug therapy; Z79.01 Long term (current) use of anticoagulants
CPT/HCPCS: 36415; 36416; 70450; 70551; 80053; 80061; 80069; 82306; 82553; 82607; 82746; 82805; 84484; 85025; 85610; 85730; 93005; 93306; 93880; J2405; J3490; Q0162

== ENCOUNTER 2019-03-17 15:33 | Observation (INO) | payer MEDICARE ==
[2019-03-17] MEDS ORDERED: Diltiazem 125 MG/25 ML ONE (15:51)
[2019-03-17] MEDS ORDERED: Diltiazem 125 MG in Sodium Chloride 0.9% 100 ML IVPB SCH (16:15)
[2019-03-17 16:19] LABS: #Basophils 0.1 thou/uL (0.0-0.2); #Eosinphils 0.2 thou/uL (0.0-0.7); #Lymphocytes 1.4 thou/uL (1.20-3.40); #Monocytes 0.8 thou/uL (0.11-0.59); #Neutrophils 8.7 thou/uL (1.40-6.50); %Basophils 0.7 % (0.0-1.0); %Eosinophils 1.6 % (0.0-10.0); %Lymphocytes 12.7 % (21.0-51.0); Hemoglobin 11.1 g/dL (12.0-16.0); Mean Corpuscular HGB CONC 32.6 g/dL (32.0-36.0); Mean Corpuscular Hemoglobin 34.1 pg (27.0-31.0); Mean Platelet Volume 9.8 fL (7.4-10.4); Platelet Count 198 thou/uL (130-400); RBC Distribution Width 11.4 % (11.5-14.5); Red Blood Cell (RBC) Count 3.25 mill/uL (4.20-5.40); White Blood Cell (WBC) Count 11.2 thou/uL (4.8-10.8)
[2019-03-17 16:37] LABS: Hypochromia SLIGHT = 6-15 cells (100X) (0-5/hpf); MDiff Complete? YES; Macrocytosis SLIGHT = 6-15 cells (100X) (0-5/hpf); Platelet Morphology Comment Appears Adequate
[2019-03-17 16:40] LABS: ALT (SGPT) 18 U/L (8-55); AST (SGOT) 22 U/L (5-34); Albumin 3.7 g/dL (3.4-4.8); Alkaline Phosphatase 108 U/L (40-110); Anion Gap 19 mmol/L (10-20); BUN (Urea Nitrogen) 9 mg/dL (9.8-20.1); Bilirubin, Total 0.8 mg/dL (0.2-1.2); CK (CPK) 111 U/L (29-168); Calc. Creatinine Clearance 0 mL/min (70-130); Calcium 7.9 mg/dL (7.8-10.44); Carbon Dioxide 27 mmol/L (23-31); Chloride 97 mmol/L (98-107); Estimated GFR-MDRD 9; Globulin 3.2 g/dL (2.4-3.5); Glucose 92 mg/dL (80-115); Potassium 4.3 mmol/L (3.5-5.1); Protein, Total 6.9 g/dL (6.0-8.3); Sodium 139 mmol/L (136-145)
[2019-03-17 17:02] LABS: CKMB 1.3 ng/mL (0-6.6)
[2019-03-17] MEDS ORDERED: Senokot S 8.6-50 MG TAB PO PRN (17:28)
[2019-03-17] MEDS ORDERED: Acetaminophen 325 MG TAB PO PRN (17:28)
[2019-03-17] MEDS ORDERED: Sodium Chloride 0.9% 250 ML IV SCH (17:30)
[2019-03-17 18:34] VITALS: BMI 24.7
--- NOTE | 2019-03-17 19:19 | HP ---
PRIMARY CARE PHYSICIAN: None. DROP WIRE OPERATOR: Dr. Bañuelos. CORRUGATOR OPERATOR: Dr. Mello. CHIEF COMPLAINT: Palpitations, weakness. HISTORY OF PRESENT ILLNESS: Ms. Berry is a 63-year-old female, who reported to the emergency room today after she started having palpitations during the last 30 minutes to an hour of dialysis today. Reports that she was able to finish dialysis. Reports that she thinks that they may be taking too much fluid off, reports that her creatinine and her values are better and that she thinks that she needs to have an adjustment, but so far this has not happened. Reports a history of atrial fibrillation and had had an ablation. EKG in the emergency room when she arrived was atrial fibrillation and rapid ventricular response, rates per minute 125, conduction with an incomplete right bundle-branch block, ST changes, consider anterolateral ischemia, axis is normal. Second EKG after patient self converted was normal sinus rhythm, rates per minute 68, incomplete right bundle-branch block, left ventricular hypertrophy, and prolonged QT. The patient was not given any medication. In the emergency room, creatinine was 4.67. Troponin is 0.053, which is pretty consistent for this patient in past visits. BNP 3754, which is actually markedly improved from any of the BNPs in the past, the last one we have on record is from 2017 when it was 11,640. Hemoglobin 11.1, hematocrit 34, platelet count 198. She was admitted about a month ago in January for numbness of the left face and extremities. MRI showed no acute infarct, but did have some moderate to severe chronic white matter disease changes. Carotid Doppler showed mild atherosclerosis of both carotids, and echocardiogram showed severe tricuspid regurgitation with an EF of 50% to 55%. The patient's symptoms improved on that admission and she was back to baseline prior to discharge. She sees Dr. Mello for dialysis and gets that on Friday, Friday, Friday. She has not missed any recent scheduled appointments. The patient will be admitted to the observation unit for further management. REVIEW OF SYSTEMS: Palpitations. Reports not feeling well. Evidently, was blue around the lips, short of breath, had some nausea, some clamminess to her skin. She denied any shortness of breath, sore throat. Denies abdominal pain, nausea, vomiting, or diarrhea. All systems are reviewed and are negative unless mentioned in the HPI. PAST MEDICAL HISTORY: 1. End-stage renal disease, on hemodialysis on Friday, Friday, Friday. 2. Diastolic heart failure. 3. History of epilepsy. 4. Paroxysmal atrial fibrillation. 5. Hypertension. 6. History of pleural effusion, status post PleurX catheter placement. 7. Pulmonary hypertension. 8. History of prior CVA. 9. History of parathyroid cancer. 10. Nephrolithiasis. PAST SURGICAL HISTORY: 1. Left nephrectomy. 2. Splenectomy. 3. Partial parathyroidectomy. 4. Status post ablation of atrial fibrillation. 5. PleurX catheter placement and subsequent removal. 6. Right upper extremity AV fistula placement. 7. Decortication of lung. 8. Tonsillectomy. FAMILY HISTORY: Positive for hypertension. SOCIAL HISTORY: The patient lives with her significant other. She denied any alcohol, tobacco, or recreational drug use. She is a full code. Significant other is surrogate decision maker. ALLERGIES: IODINE AND LEVAQUIN. HOME MEDICATIONS: 1. Lanthanum carbonate 1000 mg p.o. t.i.d. 2. Eliquis 2.5 mg p.o. b.i.d. 3. Aspirin 81 mg p.o. daily. 4. Lipitor 40 mg p.o. at bedtime. 5. Calcium carbonate 1500 mg daily. 6. Drisdol 1.25 mg p.o. daily. 7. Metoprolol 100 mg p.o. daily. 8. Zofran 4 mg p.o. q.6 hours as needed. PHYSICAL EXAMINATION: VITAL SIGNS: Blood pressure 171/93, pulse is 73, respirations are 18, pO2 sats are 99% on 3 L of O2. GENERAL: The patient appears nontoxic. She is alert and oriented to person, place, and time. HEENT: Head is atraumatic, normocephalic. Eyes; eyelids are normal to inspection. Pupils are equally round and reactive to light. ENT; mouth exam is normal. Mucous membranes are moist. NECK: Normal range of motion. Trachea is midline. RESPIRATORY: Chest breath sounds are clear. Chest expansion is equal. CARDIOVASCULAR: Normal S1, S2. Heart sounds are normal. ABDOMEN: Nontender. Bowel sounds are heard. BACK: Normal range of motion. No tenderness. EXTREMITIES: Upper extremity, normal range of motion. Motor strength is normal. Sensation intact. Radial pulses are normal. Lower extremity, normal inspection, normal range of motion. Motor strength is normal. Pedal pulses are normal. NEURO: The patient is oriented to person, place, and time. Speech is normal. SKIN: Warm, dry, normal in color. PSYCH: The patient is oriented to person, place, and time. Has a normal affect. PLAN/ASSESSMENT: 1. Paroxysmal atrial fibrillation. The patient has self converted back to normal sinus rhythm. The patient will be admitted to the observation unit. We will keep the patient on the monitor, give a small bolus of 250 mL as a bolus. Trend troponins. Recheck labs in the morning restart the Eliquis. 2. History of hypertension. We will restart her home medications. 3. Hyperlipidemia. We will restart her Lipitor. 4. DVT and gastrointestinal prophylaxis have been started. 5. Hospital course dependent on clinical findings. Job ID: [id number]
[2019-03-17] MEDS: Famotidine 20 MG TAB PO SCH (20:33)
[2019-03-17] MEDS: Metoprolol Tartrate 100 MG TAB PO SCH (20:33)
[2019-03-17] MEDS: Apixaban 2.5 MG TAB PO SCH (20:37)
[2019-03-17] MEDS ORDERED: Famotidine 20 MG TAB PO SCH (21:00)
[2019-03-17 21:16] LABS: Hemoglobin 10.8 g/dL (12.0-16.0); Platelet Count 208 thou/uL (130-400)
[2019-03-18] MEDS: Ondansetron ODT 4 MG TAB PO PRN ×2 (01:26→08:23)
[2019-03-18 04:57] LABS: #Basophils 0.2 thou/uL (0.0-0.2); #Eosinphils 0.3 thou/uL (0.0-0.7); #Lymphocytes 1.9 thou/uL (1.20-3.40); #Neutrophils 6.7 thou/uL (1.40-6.50); %Basophils 1.6 % (0.0-1.0); %Eosinophils 3.2 % (0.0-10.0); %Monocytes 9.7 % (0.0-10.0); %Neutrophils 66.5 % (42.0-75.0); Hemoglobin 9.6 g/dL (12.0-16.0); Mean Corpuscular HGB CONC 32.5 g/dL (32.0-36.0); Mean Corpuscular Hemoglobin 33.5 pg (27.0-31.0); Mean Platelet Volume 9.3 fL (7.4-10.4); Platelet Count 202 thou/uL (130-400); RBC Distribution Width 11.5 % (11.5-14.5); Red Blood Cell (RBC) Count 2.85 mill/uL (4.20-5.40); White Blood Cell (WBC) Count 10.1 thou/uL (4.8-10.8)
[2019-03-18 05:15] LABS: Anion Gap 11 mmol/L (10-20); BUN (Urea Nitrogen) 18 mg/dL (9.8-20.1); Calc. Creatinine Clearance 8 mL/min (70-130); Calcium 7.3 mg/dL (7.8-10.44); Carbon Dioxide 36 mmol/L (23-31); Chloride 97 mmol/L (98-107); Estimated GFR-MDRD 6; Glucose 95 mg/dL (80-115); Potassium 4.2 mmol/L (3.5-5.1); Sodium 140 mmol/L (136-145)
[2019-03-18] MEDS: Calcium Carbonate + Vit D 1 TAB PO SCH (08:23)
[2019-03-18] MEDS: Apixaban 2.5 MG TAB PO SCH ×2 (08:24→19:52)
[2019-03-18] MEDS: Lanthanum Carbonate 500 mg Tablet PO SCH ×3 (08:24→16:43)
[2019-03-18] MEDS: Metoprolol Tartrate 100 MG TAB PO SCH ×2 (08:24→19:55)
[2019-03-18] MEDS: Aspirin 81 mg Enteric Coated Tablet PO SCH (08:24)
[2019-03-18 08:57] LABS: Troponin I 0.388 ng/mL (< 0.028)
[2019-03-18] MEDS ORDERED: Losartan 25 MG TAB PO SCH (09:00)
--- NOTE | 2019-03-18 13:11 | PDOC.HOSPP ---
- Subjective Encounter Date: 03/18/19 Encounter Time: 10:11 Subjective: 63 y/o female with diastolic HF, HTN, PAF, ESRD on HD admitted with acute onset of palpitations that started during HD. Found to have A trila fib RVR which soon converted to SR spontaneously. Feeling back to baseline. Denied chest pain or SOB. - Objective Vital Signs & Weight: Vital Signs (12 hours) Temp Pulse Resp BP Pulse Ox 03/18/19 11:11 96.8 F L 67 15 155/72 H 97 03/18/19 08:19 97.4 F L 68 15 140/67 90 L 03/18/19 04:08 98.6 F 63 22 H 154/74 H 96 Weight Weight 134 lb 6.4 oz I&O: 03/17/19 03/18/19 03/19/19 06:59 06:59 06:59 Intake Total 490 Output Total 0 Balance 490 Result Diagrams: 03/18/19 04:05 03/18/19 04:05 Hospitalist ROS - Medication Medications: Active Medications Generic Name Dose Route Start Last Admin Trade Name Freq PRN Reason Stop Dose Admin Apixaban 2.5 mg 03/17/19 21:00 03/18/19 08:24 Eliquis PO 2.5 mg BID CRYS Administration Aspirin 81 mg 03/18/19 09:00 03/18/19 08:24 Ecotrin PO 81 mg DAILY CRYS Administration Calcium/Vitamin D 1 tab 03/18/19 08:00 03/18/19 08:23 Caltrate 600 + Vit D PO 1 tab QAM-WM CRYS Administration Famotidine 20 mg 03/17/19 21:00 03/17/19 20:33 Pepcid PO 20 mg QPM CRYS Administration Lanthanum Carbonate 500 mg 03/18/19 08:00 03/18/19 11:47 Fosrenol PO 500 mg TID-WM CRYS Administration Losartan Potassium 25 mg 03/18/19 09:00 03/18/19 08:24 Cozaar PO 25 mg DAILY CRYS Administration Metoprolol Tartrate 100 mg 03/17/19 21:00 03/18/19 08:24 Lopressor PO 100 mg BID CRYS Administration Ondansetron HCl 4 mg 03/18/19 01:20 03/18/19 08:23 Zofran Odt PO 4 mg Q6H PRN Administration Nausea/Vomiting Sodium Chloride 10 ml 03/17/19 17:28 03/17/19 20:33 Flush - Normal Saline IVF 10 ml PRN PRN Administration Saline Flush - Exam General Appearance: awake alert Eye: anicteric sclera ENT: normocephalic atraumatic, moist mucosa Neck: supple, symmetric, no JVD Heart: RRR, murmur present Respiratory: no wheezes, no rales, no ronchi, normal chest expansion, no tachypnea Gastrointestinal: soft, non-tender, non-distended, normal bowel sounds Extremities: no cyanosis, no edema Neurological: cranial nerve grossly intact, no focal deficits Musculoskeletal: normal tone Psychiatric: A&O x 3 Hosp A/P (1) Paroxysmal atrial fibrillation with rapid ventricular response Code(s): I48.0 - PAROXYSMAL ATRIAL FIBRILLATION Status: Acute (2) Elevated troponin Code(s): R79.89 - OTHER SPECIFIED ABNORMAL FINDINGS OF BLOOD CHEMISTRY Status : Acute (3) NSTEMI (non-ST elevated myocardial infarction) Code(s): I21.4 - NON-ST ELEVATION (NSTEMI) MYOCARDIAL INFARCTION Status: Acute (4) Diastolic CHF Code(s): I50.30 - UNSPECIFIED DIASTOLIC (CONGESTIVE) HEART FAILURE Status: Chronic (5) ESRD (end stage renal disease) on dialysis Code(s): N18.6 - END STAGE RENAL DISEASE; Z99.2 - DEPENDENCE ON RENAL DIALYSIS Status: Chronic (6) Hypertension Code(s): I10 - ESSENTIAL (PRIMARY) HYPERTENSION Status: Chronic Qualifiers: Hypertension type: essential hypertension Qualified Code(s): I10 - Essential (primary) hypertension (7) Seizure disorder Code(s): G40.909 - EPILEPSY, UNSP, NOT INTRACTABLE, WITHOUT STATUS EPILEPTICUS Status: Chronic - Plan Get Echo to assess cardiac function Consult cardiology for possible NSTEMI Consult nephrology for Hemodialysis Continue home meds
[2019-03-18] MEDS: Famotidine 20 MG TAB PO SCH (19:55)
--- NOTE | 2019-03-19 09:36 | RAD ---
EXAM: Chest Two Views 03/19/2019 9:32 AM HISTORY: Shortness of breath with recurrent pleural effusions COMPARISON: June 23, 2017 FINDINGS: Heart: There is worsening moderate to severe cardiomegaly Pulmonary vessels: There is moderate to severe pulmonary vascular congestion Costophrenic angles: There is a small bilateral pleural effusions, right greater than left Lungs: There are areas of subsegmental volume loss involving the right midlung and right lower lobe. Mild left basilar atelectasis is present. Pneumothorax: None. Osseous structures:Intact. Additional findings: Surgical clips are seen within the left upper quadrant of the abdomen. There a re stable densities likely within the splenic flexure the colon which may reflect bismuth products or prior ingested barium products. IMPRESSION: Worsening CHF
[2019-03-19] MEDS: Calcium Carbonate + Vit D 1 TAB PO SCH (10:11)
[2019-03-19] MEDS: Apixaban 2.5 MG TAB PO SCH ×2 (10:12→20:28)
[2019-03-19] MEDS: Aspirin 81 mg Enteric Coated Tablet PO SCH (10:12)
[2019-03-19] MEDS: Losartan 25 MG TAB PO SCH (10:12)
[2019-03-19] MEDS: Metoprolol Tartrate 100 MG TAB PO SCH ×2 (10:12→20:28)
[2019-03-19] MEDS: Lanthanum Carbonate 500 mg Tablet PO SCH ×4 (10:12→19:34)
[2019-03-19] MEDS ORDERED: EPOETIN ALFA-EPBX (ESRD) 4,000 UNIT/ML VIAL SC SCH (11:00)
--- NOTE | 2019-03-19 11:33 | CON ---
DATE OF CONSULTATION: HISTORY OF PRESENT ILLNESS: Ms. Berry is a 63-year-old white female with ESRD and currently on maintenance hemodialysis. She was admitted due to palpitations and was noted to be in rapid AFib. She spontaneously converted to normal sinus rhythm. In addition, chest x-ray showed CHF. We are now being consulted for her maintenance hemodialysis. I have scheduled this patient for dialysis this afternoon with fluid removal as tolerated. This morning, denies any chest pain. She does have a mild shortness of breath. No nausea. No vomiting. No diarrhea. No constipation. No productive cough. No fever or chills. Appetite and energy level are fair. No syncopal episode. No sore throat. No hematochezia. No melena. No hematemesis. No abdominal pain. MEDICATIONS: Currently on; 1. Eliquis 2.5 mg p.o. b.i.d. 2. Ecotrin 81 mg tablet once a day. 3. Calcium carbonate one tab q.a.m. 4. Famotidine 20 mg at bedtime. 5. Lanthanum carbonate 500 mg p.o. t.i.d. with meals. 6. Losartan 50 mg daily. 7. Metoprolol 100 mg p.o. b.i.d. PAST MEDICAL HISTORY: 1. ESRD, currently on maintenance hemodialysis on Friday, Friday, and Friday. 2. Hypertension. 3. History of atrial fibrillation. 4. ? of seizure disorder. 5. Status post congestive heart failure. 6. Hyperlipidemia. PAST SURGICAL HISTORY: Status post splenectomy, status post parathyroidectomy, status post tonsillectomy, status post left nephrectomy, status post cardiac ablation therapy, status post cardiac cath, status post cuffed dialysis catheter placement, status post pulmonary decortication, status post chest tube placement, and status post AV fistula. SOCIAL HISTORY: The patient is , 2 children, lives in [place]. 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 No history of smoking. No alcohol intake. No IV drug abuse. Status post multiple blood transfusion. ALLERGIES: IV DYE AND LEVAQUIN. TRAUMA: None. IMMUNIZATIONS: Up-to-date. HOSPITALIZATIONS: Please see past medical history. FAMILY HISTORY: No family history of ESRD. PHYSICAL EXAMINATION: VITAL SIGNS: Blood pressure is noted at 180/86, heart rate 63, temperature 98.1, respiratory rate 20, and pulse ox 98%. GENERAL: The patient is noted to be awake, alert, comfortable, not in overt distress. SKIN: Adequate turgor. HEENT: She has slightly pale conjunctivae. Anicteric sclerae. NECK: No neck mass. No carotid bruits. No JVD. CHEST: No deformities. LUNGS: Clear breath sounds. HEART: Normal sinus rhythm. No murmurs. No gallops. No rubs. ABDOMEN: Globular, soft, and nontender. No masses. EXTREMITIES: No edema. No deformities. NEUROLOGICAL: Moving all extremities. No asterixis. No ataxia. No tremors. LABORATORY DATA: Laboratories of March 18, 2019; white count 10.1, hemoglobin 9.6. Sodium 140, potassium 4.2, chloride 97, carbon dioxide 36, BUN 18, creatinine 6.59, glucose 95, calcium 7.3. IMAGING DATA: Chest x-ray shows CHF. ASSESSMENT AND PLAN: 1. End-stage renal disease, stable. We will continue current hemodialysis regimen. Fluid removal as tolerated by this patient. 2. Anemia. Restart weekly Epogen. 3. Transient atrial fibrillation - the patient is status post cardiac ablation. She is currently in normal sinus rhythm and she is on anticoagulation. 4. Congestive heart failure. We will max out fluid removal with dialysis today. Job ID: [id number]
--- NOTE | 2019-03-19 13:37 | PDOC.HOSPP ---
- Subjective Encounter Date: 03/19/19 Encounter Time: 08:35 Subjective: 63 y/o female with diastolic HF, HTN, PAF, ESRD on HD admitted with acute onset of palpitations that started during HD. Found to have A trila fib RVR which soon converted to SR spontaneously. Complaining of SOB remniscent of the period she had pleural effusion. Denied chest pain. - Objective Vital Signs & Weight: Vital Signs (12 hours) Temp Pulse Resp BP Pulse Ox 03/19/19 11:26 98.4 F 64 20 168/76 H 98 03/19/19 07:10 98.1 F 63 20 180/86 H 98 03/19/19 04:18 98.2 F 66 22 H 179/84 H 96 Weight Weight 130 lb 9.6 oz I&O: 03/18/19 03/19/19 03/20/19 06:59 06:59 06:59 Intake Total 490 1210 360 Output Total 0 0 Balance 490 1210 360 Result Diagrams: 03/18/19 04:05 03/18/19 04:05 Hospitalist ROS - Medication Medications: Active Medications Generic Name Dose Route Start Last Admin Trade Name Freq PRN Reason Stop Dose Admin Apixaban 2.5 mg 03/17/19 21:00 03/19/19 10:12 Eliquis PO 2.5 mg BID CRYS Administration Aspirin 81 mg 03/18/19 09:00 03/19/19 10:12 Ecotrin PO 81 mg DAILY CRYS Administration Calcium/Vitamin D 1 tab 03/18/19 08:00 03/19/19 10:11 Caltrate 600 + Vit D PO 1 tab QAM-WM CRYS Administration Famotidine 20 mg 03/17/19 21:00 03/18/19 19:55 Pepcid PO 20 mg QPM CRYS Administration Lanthanum Carbonate 500 mg 03/18/19 08:00 03/19/19 10:12 Fosrenol PO 500 mg TID-WM CRYS Administration Losartan Potassium 50 mg 03/19/19 09:00 03/19/19 10:12 Cozaar PO 50 mg DAILY CRYS Administration Metoprolol Tartrate 100 mg 03/17/19 21:00 03/19/19 10:12 Lopressor PO 100 mg BID CRYS Administration Ondansetron HCl 4 mg 03/18/19 01:20 03/18/19 08:23 Zofran Odt PO 4 mg Q6H PRN Administration Nausea/Vomiting Sodium Chloride 10 ml 03/17/19 17:28 03/17/19 20:33 Flush - Normal Saline IVF 10 ml PRN PRN Administration Saline Flush - Exam General Appearance: awake alert Eye: anicteric sclera ENT: normocephalic atraumatic, moist mucosa Neck: supple, symmetric, no JVD Heart: RRR, murmur present Respiratory: no wheezes, no rales, no ronchi, normal chest expansion Gastrointestinal: soft, non-tender, non-distended, normal bowel sounds Extremities: no cyanosis, no edema Neurological: cranial nerve grossly intact, no focal deficits Psychiatric: A&O x 3 Hosp A/P (1) Paroxysmal atrial fibrillation with rapid ventricular response Code(s): I48.0 - PAROXYSMAL ATRIAL FIBRILLATION Status: Acute (2) Elevated troponin Code(s): R79.89 - OTHER SPECIFIED ABNORMAL FINDINGS OF BLOOD CHEMISTRY Status : Acute (3) NSTEMI (non-ST elevated myocardial infarction) Code(s): I21.4 - NON-ST ELEVATION (NSTEMI) MYOCARDIAL INFARCTION Status: Acute (4) Diastolic CHF Code(s): I50.30 - UNSPECIFIED DIASTOLIC (CONGESTIVE) HEART FAILURE Status: Chronic (5) ESRD (end stage renal disease) on dialysis Code(s): N18.6 - END STAGE RENAL DISEASE; Z99.2 - DEPENDENCE ON RENAL DIALYSIS Status: Chronic (6) Hypertension Code(s): I10 - ESSENTIAL (PRIMARY) HYPERTENSION Status: Chronic Qualifiers: Hypertension type: essential hypertension Qualified Code(s): I10 - Essential (primary) hypertension (7) Seizure disorder Code(s): G40.909 - EPILEPSY, UNSP, NOT INTRACTABLE, WITHOUT STATUS EPILEPTICUS Status: Chronic (8) H/O pleural effusion Code(s): Z87.09 - PERSONAL HISTORY OF OTHER DISEASES OF THE RESPIRATORY SYSTEM Status: Acute - Plan Increase losartan to 50 mg daily to get better BP control. Get CXR to rule in /out pleural effusion recurrence Awaiting Echo Nad cardiology evaluation Hemodialysis as per Nephrology Continue home meds.
[2019-03-19 15:45] LABS: HBSAg Index 0.15 S/CO (0-0.99); Hep B Surf Ag Non-Reactive S/CO (NonReactive)
[2019-03-19] MEDS: Famotidine 20 MG TAB PO SCH (20:28)
--- NOTE | 2019-03-19 21:27 | CON ---
DATE OF CONSULTATION: HISTORY: Wendy Berry is a 63-year-old white female with history of paroxysmal atrial fibrillation, who is followed by Dr. Bañuelos. She had undergone atrial fibrillation ablation in the past, has not had any recurrence for 2 years. Today, while at dialysis, she started to have palpitations. She states this lasted almost 2 hours and with Valsalva maneuver, she was able to convert herself back to normal rhythm, but she came to the emergency room. She has had mildly elevated troponin I. It is of note that in April 2018 that she underwent cardiac PET scan in the office that was normal. PAST MEDICAL HISTORY: End-stage renal disease, on dialysis; diastolic heart failure; history of seizures; paroxysmal atrial fibrillation; hypertension; history of pleural effusion; pulmonary artery hypertension; prior CVA; history of parathyroid cancer. PAST SURGICAL HISTORY: Left nephrectomy, splenectomy, partial parathyroidectomy, ablation for atrial fibrillation, AV fistula placement, decortication of lung, and tonsillectomy. MEDICATIONS: Eliquis 2.5 mg b.i.d. and she is on lower dose because of her weight and renal failure, aspirin 81 daily, Fosrenol one tablet t.i.d., losartan 25 mg daily, metoprolol 100 mg b.i.d., Zofran p.r.n. ALLERGIES: IODINE AND LEVAQUIN. SOCIAL HISTORY: She does not smoke or drink. REVIEW OF SYSTEMS: 10-point review of systems is otherwise unremarkable. PHYSICAL EXAMINATION: VITAL SIGNS: Blood pressure 186/84, pulse of 71. HEENT: PERRL. NECK: Supple. CHEST: Clear. CARDIAC: S1 and S2 normal without any S3 or S4. There is a 2/6 systolic ejection murmur. Carotid upstroke is normal without bruits. ABDOMEN: Normal bowel sounds without tenderness. EXTREMITIES: Reveal no clubbing, cyanosis, or edema. NEUROLOGIC: Grossly intact. LABORATORY DATA: EKG initially revealed atrial fibrillation with rapid ventricular response of 125 per minute with incomplete right bundle-branch block. After vagal maneuver, she converted to sinus rhythm and there was incomplete right bundle-branch block. Hemoglobin 9.6, hematocrit 29.4, white count 10,100, platelets 202,000. Sodium 140, potassium 4.2, chloride 97, carbon dioxide 36, BUN 18, creatinine 6.59. Troponin I is up to 0.388. BNP 3754. Echocardiogram revealed a small pericardial effusion, ejection fraction 50% to 55%. Left atrial enlargement, right atrial enlargement, mitral annular calcification, moderate mitral regurgitation, aortic valvular sclerosis, severe tricuspid regurgitation with pulmonary hypertension and mild pulmonic regurgitation. IMPRESSION: 1. Paroxysmal atrial fibrillation with first episode in approximately 2 years. With Valsalva maneuver, she states she was able to convert back to sinus rhythm. 2. Non-STEMI type 2. She denied any chest discomfort with this. 3. Hypertension. 4. Hyperlipidemia. PLAN: The patient will continue to be monitored. She had a normal PET scan in April 2018 of this year. Her usual talent consultant, Dr. Bañuelos, will see her in the morning. Job ID: [id number]
[2019-03-19] MEDS ORDERED: Amlodipine 10 MG TAB PO SCH (23:45)
[2019-03-20 05:28] LABS: #Basophils 0.1 thou/uL (0.0-0.2); #Eosinphils 0.4 thou/uL (0.0-0.7); #Lymphocytes 1.7 thou/uL (1.20-3.40); #Monocytes 0.9 thou/uL (0.11-0.59); %Basophils 1.4 % (0.0-1.0); %Eosinophils 3.8 % (0.0-10.0); %Lymphocytes 16.7 % (21.0-51.0); %Monocytes 8.8 % (0.0-10.0); %Neutrophils 69.3 % (42.0-75.0); Hemoglobin 10.1 g/dL (12.0-16.0); Mean Corpuscular HGB CONC 32.7 g/dL (32.0-36.0); Mean Corpuscular Hemoglobin 33.9 pg (27.0-31.0); Platelet Count 201 thou/uL (130-400); RBC Distribution Width 11.7 % (11.5-14.5); Red Blood Cell (RBC) Count 2.98 mill/uL (4.20-5.40); White Blood Cell (WBC) Count 10.1 thou/uL (4.8-10.8)
[2019-03-20 05:57] LABS: Albumin 3.4 g/dL (3.4-4.8); Anion Gap 11 mmol/L (10-20); BUN (Urea Nitrogen) 17 mg/dL (9.8-20.1); BUN/Creatinine Ratio 3.01; Calc. Creatinine Clearance 9 mL/min (70-130); Calcium 7.6 mg/dL (7.8-10.44); Carbon Dioxide 33 mmol/L (23-31); Chloride 100 mmol/L (98-107); Estimated GFR-MDRD 8; Glucose 97 mg/dL (80-115); Phosphorus 4.2 mg/dL (2.3-4.7); Potassium 4.7 mmol/L (3.5-5.1); Sodium 139 mmol/L (136-145)
[2019-03-20] MEDS: Losartan 25 MG TAB PO SCH (07:26)
[2019-03-20] MEDS: Apixaban 2.5 MG TAB PO SCH (07:27)
[2019-03-20] MEDS: Lanthanum Carbonate 500 mg Tablet PO SCH ×3 (07:27→17:03)
[2019-03-20] MEDS: Calcium Carbonate + Vit D 1 TAB PO SCH (07:27)
[2019-03-20] MEDS: Metoprolol Tartrate 100 MG TAB PO SCH (07:27)
[2019-03-20] MEDS: Aspirin 81 mg Enteric Coated Tablet PO SCH (07:27)
[2019-03-20] MEDS ORDERED: Losartan 25 MG TAB PO SCH (07:36)
[2019-03-20 08:39] LABS: Hemoglobin 10.3 g/dL (12.0-16.0); Platelet Count 198 thou/uL (130-400)
--- NOTE | 2019-03-20 10:15 | PRG ---
DATE OF SERVICE: 03/20/2019 SUBJECTIVE: Ms. Berry is a 63-year-old white female, followed up by the [facility] for maintenance hemodialysis. She did undergo hemodialysis yesterday. She was initially admitted for palpitation and paroxysmal atrial fibrillation. She has not redeveloped any atrial fibrillation since admission. She has been evaluated by Cardiology. No other complaints today. No chest pain or shortness of breath. OBJECTIVE: VITAL SIGNS: Blood pressure is 160/74, heart rate 63, respiratory rate 18, temperature 98.3, and pulse ox 97%. GENERAL: Noted to be awake, alert, supine, comfortable, not in overt distress. SKIN: Adequate turgor. HEENT: She has a pinkish conjunctivae. Anicteric sclerae. NECK: No neck mass. No carotid bruits. No JVD. CHEST: No deformities. LUNGS: Clear breath sounds. No wheezing. No crackles. HEART: Normal sinus rhythm. No murmur. No gallops. No rubs. ABDOMEN: Globular, soft, and nontender. No masses. EXTREMITIES: No edema. No deformities. MEDICATIONS: Medications of March 20, 2019, reviewed. LABORATORY DATA: Laboratories of March 20, 2019, white count 10.3. Sodium 139, potassium 4.7, chloride 100, carbon dioxide 33, BUN 17, creatinine 5.65, phosphorus 4.2, calcium is 7.6, and albumin 3.4. ASSESSMENT AND PLAN: 1. End-stage renal disease, stable, tolerating current hemodialysis regimen. Continue Friday, Friday, and Friday dialysis. No indication for any emergency dialysis today. 2. Palpitation, resolved. The patient had a history of atrial fibrillation. However, during this last few days her heart rate is well controlled. 3. Anemia, continuing weekly Epogen. Job ID: [id number]
--- NOTE | 2019-03-20 12:01 | PDOC.HOSPP ---
- Subjective Encounter Date: 03/20/19 Encounter Time: 10:00 Subjective: 63 y/o female with diastolic HF, HTN, PAF, ESRD on HD admitted with acute onset of palpitations that started during HD. Found to have A trila fib RVR which soon converted to SR spontaneously. Patient has been having nocturnal hypoxia and admitted history of TERRY. Denied chest pain, SOB or fever. Kristal - Objective Vital Signs & Weight: Vital Signs (12 hours) Temp Pulse Resp BP Pulse Ox 03/20/19 11:29 98.8 F 64 18 154/70 H 98 03/20/19 07:16 98.3 F 63 18 160/74 H 97 03/20/19 04:05 98.1 F 67 18 163/76 H 95 Weight Weight 128 lb 11.2 oz I&O: 03/19/19 03/20/19 03/21/19 06:59 06:59 06:59 Intake Total 1210 1150 Output Total 0 1900 Balance 1210 -750 Result Diagrams: 03/20/19 08:11 03/20/19 08:11 Hospitalist ROS - Medication Medications: Active Medications Generic Name Dose Route Start Last Admin Trade Name Freq PRN Reason Stop Dose Admin Apixaban 2.5 mg 03/17/19 21:00 03/20/19 07:27 Eliquis PO 2.5 mg BID CRYS Administration Aspirin 81 mg 03/18/19 09:00 03/20/19 07:27 Ecotrin PO 81 mg DAILY CRYS Administration Calcium/Vitamin D 1 tab 03/18/19 08:00 03/20/19 07:27 Caltrate 600 + Vit D PO 1 tab QAM-WM CRYS Administration Epoetin Luca-epbx 7,500 unit 03/19/19 11:00 03/19/19 19:34 Retacrit SC 7,500 unit Q7D CRYS Administration Famotidine 20 mg 03/17/19 21:00 03/19/19 20:28 Pepcid PO 20 mg QPM CRYS Administration Lanthanum Carbonate 500 mg 03/18/19 08:00 03/20/19 11:06 Fosrenol PO 500 mg TID-WM CRYS Administration Losartan Potassium 100 mg 03/20/19 07:36 03/20/19 07:46 Cozaar PO 100 mg DAILY CRYS Administration Metoprolol Tartrate 100 mg 03/17/19 21:00 03/20/19 07:27 Lopressor PO 100 mg BID CRYS Administration Ondansetron HCl 4 mg 03/18/19 01:20 03/18/19 08:23 Zofran Odt PO 4 mg Q6H PRN Administration Nausea/Vomiting Sodium Chloride 10 ml 03/17/19 17:28 03/19/19 20:29 Flush - Normal Saline IVF 10 ml PRN PRN Administration Saline Flush - Exam General Appearance: awake alert Eye: anicteric sclera ENT: normocephalic atraumatic Neck: supple, symmetric, no JVD Heart: RRR, murmur present Respiratory: no wheezes, no rales, no ronchi, normal chest expansion Gastrointestinal: soft, non-tender, non-distended, normal bowel sounds Extremities: no cyanosis, no edema Neurological: cranial nerve grossly intact, no focal deficits Psychiatric: normal affect, A&O x 3 Hosp A/P (1) Paroxysmal atrial fibrillation with rapid ventricular response Code(s): I48.0 - PAROXYSMAL ATRIAL FIBRILLATION Status: Acute (2) Elevated troponin Code(s): R79.89 - OTHER SPECIFIED ABNORMAL FINDINGS OF BLOOD CHEMISTRY Status : Acute (3) NSTEMI (non-ST elevated myocardial infarction) Code(s): I21.4 - NON-ST ELEVATION (NSTEMI) MYOCARDIAL INFARCTION Status: Acute (4) Diastolic CHF Code(s): I50.30 - UNSPECIFIED DIASTOLIC (CONGESTIVE) HEART FAILURE Status: Chronic (5) ESRD (end stage renal disease) on dialysis Code(s): N18.6 - END STAGE RENAL DISEASE; Z99.2 - DEPENDENCE ON RENAL DIALYSIS Status: Chronic (6) Hypertension Code(s): I10 - ESSENTIAL (PRIMARY) HYPERTENSION Status: Chronic Qualifiers: Hypertension type: essential hypertension Qualified Code(s): I10 - Essential (primary) hypertension (7) Seizure disorder Code(s): G40.909 - EPILEPSY, UNSP, NOT INTRACTABLE, WITHOUT STATUS EPILEPTICUS Status: Chronic (8) H/O pleural effusion Code(s): Z87.09 - PERSONAL HISTORY OF OTHER DISEASES OF THE RESPIRATORY SYSTEM Status: Acute (9) Pulmonary HTN Code(s): I27.20 - PULMONARY HYPERTENSION, UNSPECIFIED Status: Acute (10) Moderate mitral regurgitation Code(s): I34.0 - NONRHEUMATIC MITRAL (VALVE) INSUFFICIENCY Status: Acute (11) TERRY (obstructive sleep apnea) Code(s): G47.33 - OBSTRUCTIVE SLEEP APNEA (ADULT) (PEDIATRIC) Status: Acute - Plan Increase losartan to 100 mg daily. Monitor BP and addd amlodipine if not adequately controlled Hemodialysis as per Nephrology Continue home meds. Awaiting cardiology re evaluation. Will need sleep study on discharge.
[2019-03-20 15:59] VITALS: TEMP 98.6
[2019-03-20 16:48] VITALS: BP 155/73
--- NOTE | 2019-03-20 17:55 | PDOC.CPN ---
- Subjective Date: 03/20/19 Time: 14:00 Interval history: She is doing well. No chest pain, tightness, pressure. - Review of Systems General: denies: fever/chills, weight/appetite/sleep changes, night sweats, fatigue Respiratory: denies: cough, congestion, shortness of breath, exercise intolerance Cardiovascular: denies: chest pain, palpitation, edema, paroxysmal nocturnal dyspnea, orthopnea Gastrointestinal: denies: nausea, vomiting, diarrhea, constipation, abd pain, GI bleeding Musculoskeletal: denies: pain, tenderness, stiffness, swelling, arthritis/ arthralgias Neurological: denies: numbness, syncope, seizure, weakness - Objective Allergies/Adverse Reactions: Allergies Allergy/AdvReac Type Severity Reaction Status Date / Time No Known Allergies Allergy Verified 03/17/19 19:45 Visit Medications: Current Medications Acetaminophen (Tylenol) 650 mg PO Q4H PRN PRN Reason: Headache/Fever/Mild Pain (1-3) Apixaban (Eliquis) 2.5 mg PO BID [facility] Last Admin: 03/20/19 07:27 Dose: 2.5 mg Aspirin (Ecotrin) 81 mg PO DAILY [facility] Last Admin: 03/20/19 07:27 Dose: 81 mg Calcium/Vitamin D (Caltrate 600 + Vit D) 1 tab PO QAM-[facility] Last Admin: 03/20/19 07:27 Dose: 1 tab Epoetin Luca-epbx (Retacrit) 7,500 unit SC Q7D [facility] Last Admin: 03/19/19 19:34 Dose: 7,500 unit Famotidine (Pepcid) 20 mg PO QPM [facility] Last Admin: 03/19/19 20:28 Dose: 20 mg Lanthanum Carbonate (Fosrenol) 500 mg PO TID-[facility] Last Admin: 03/20/19 17:03 Dose: 500 mg Losartan Potassium (Cozaar) 100 mg PO DAILY [facility] Last Admin: 03/20/19 07:46 Dose: 100 mg Metoprolol Tartrate (Lopressor) 100 mg PO BID [facility] Last Admin: 03/20/19 07:27 Dose: 100 mg Ondansetron HCl (Zofran Odt) 4 mg PO Q6H PRN PRN Reason: Nausea/Vomiting Last Admin: 03/18/19 08:23 Dose: 4 mg Senna/Docusate Sodium (Senokot S) 2 tab PO BIDPRN PRN PRN Reason: Constipation Sodium Chloride (Flush - Normal Saline) 10 ml IVF PRN PRN PRN Reason: Saline Flush Last Admin: 03/19/19 20:29 Dose: 10 ml Vital Signs & Weight: Vital Signs Temp Pulse Resp BP Pulse Ox 03/20/19 16:47 70 155/73 H 03/20/19 15:43 98.6 F 69 20 173/78 H 95 03/20/19 11:29 98.8 F 64 18 154/70 H 98 03/20/19 07:16 98.3 F 63 18 160/74 H 97 Weight 128 lb 11.2 oz - Physical Exam General: alert & oriented x3 HEENT: mucus membranes moist, normocephaly Neck: supple neck Cardiac: regular rate and rhythm, no murmur Lungs: normal breath sounds Neuro: grossly intact Abdomen: active bowel sounds Extremities: no edema Skin: clear Musculoskeletal: no pain - Labs Result Diagrams: 03/20/19 08:11 03/20/19 08:11 Troponin/CKMB CK-MB (CK-2) 1.3 ng/mL (0-6.6) 03/17/19 16:04 Troponin I 0.388 ng/mL (< 0.028) H* 03/18/19 04:05 - Telemetry Sinus rhythms and dysrhythmias: sinus rhythm - Assessment/Plan Assessment/Plan: 1. Paroxysmal Afib. 2. ESRD 3. Type 2 VA 4. HTN 5. HLP PLAN: - Continue Eliquis 2.5 mg BID due to low weight. - Continue BB - May discharge home/ - Follow up in the office in 1 month. - Will need follow up with EP for evaluation of repeat ablation.
--- NOTE | 2019-03-22 14:20 | DIS ---
DATE OF ADMISSION: 03/17/2019 DATE OF DISCHARGE: 03/20/2019 PRIMARY CARE PHYSICIAN: Dr. Brianne Whiteside. DISCHARGE DIAGNOSES: 1. Paroxysmal atrial fibrillation with rapid ventricular response. 2. Type 2 non-ST elevation myocardial infarction. 3. Elevated troponin. 4. Chronic diastolic heart failure. 5. End-stage renal disease, on hemodialysis. 6. Uncontrolled hypertension. 7. Seizure disorder. 8. History of recurrent pleural effusion. 9. Pulmonary hypertension. 10. Moderate mitral regurgitation. 11. Presumed obstructive sleep apnea. CONSULTS: 1. Cardiology. 2. Nephrology. HOSPITAL COURSE: A 63-year-old female with known history of diastolic heart failure; atrial fibrillation, status post ablation; hypertension; and end-stage renal disease, on hemodialysis, admitted with acute onset of palpitations that started during hemodialysis. The patient was found to be in atrial fibrillation, which was converted to sinus rhythm spontaneously. The patient remained in sinus rhythm during the course of this hospitalization. She, however, was found to have acute elevation in troponin, which was concerning for acute myocardial infarction. The acute elevation in troponin suggestive of is thought to either be demand ischemia or the cause of the AFib. Cardiology consult was obtained, and echocardiogram was done and the patient remained stable and was subsequently discharged home to follow up with Cardiology with a view to reconsult EPS for consideration for repeat ablation. The patient was also found to have uncontrolled hypertension, hence antihypertensives were adjusted to get adequate blood pressure control. The patient also had hemodialysis during this hospitalization as ordered by the discharge coordinator. DISCHARGE DISPOSITION: Home. DISCHARGE CONDITION: Improved. DISCHARGE MEDICATIONS: 1. Lanthanum carbonate 1000 mg p.o. t.i.d. with meals. 2. Zofran 4 mg q.6 p.r.n. 3. Eliquis 2.5 mg p.o. b.i.d. 4. Aspirin 81 mg p.o. daily. 5. Calcium carbonate plus vitamin D one tablet p.o. daily. 6. Losartan 100 mg p.o. daily. 7. Metoprolol 100 mg p.o. b.i.d. TIME SPENT: Discharge took more than 34 minutes. Job ID: [id number]
== END 2019-03-20 18:00 | disposition home or self-care (01) ==
LOC: ERS 15:33 → 2SW 17:43
PROVIDERS: ADMIT Internal Medicine; ATTEND Internal Medicine
DX: I48.0 Paroxysmal atrial fibrillation (principal); I21.A1 Myocardial infarction type 2; I13.2 Hypertensive heart and chronic kidney disease with heart failure and with stage 5 chronic kidney disease, or end stage renal disease; N18.6 End stage renal disease; I50.32 Chronic diastolic (congestive) heart failure; D63.1 Anemia in chronic kidney disease; G40.909 Epilepsy, unspecified, not intractable, without status epilepticus; I27.20 Pulmonary hypertension, unspecified; I34.0 Nonrheumatic mitral (valve) insufficiency; Z79.01 Long term (current) use of anticoagulants; Z79.82 Long term (current) use of aspirin; Z79.899 Other long term (current) drug therapy; Z85.850 Personal history of malignant neoplasm of thyroid; Z86.73 Personal history of transient ischemic attack (TIA), and cerebral infarction without residual deficits; Z87.09 Personal history of other diseases of the respiratory system; Z88.1 Allergy status to other antibiotic agents; Z91.041 Radiographic dye allergy status; Z99.2 Dependence on renal dialysis
CPT/HCPCS: 71046; 80048; 80053; 80069; 82550; 82553; 82565 ×2; 83880; 84484 ×2; 85014 ×2; 85018 ×2; 85025 ×3; 85049 ×2; 87340; 93005; 93306; 96360; 96361; 96372; 99285; G0378 ×5; Q5105; 36415; Q0162

== ENCOUNTER 2019-05-27 12:03 | Emergency (ER) | payer MEDICARE ==
[2019-05-27 13:15] LABS: #Basophils 0.2 thou/uL (0.0-0.2); #Eosinphils 0.3 thou/uL (0.0-0.7); #Lymphocytes 1.9 thou/uL (1.20-3.40); #Monocytes 0.7 thou/uL (0.11-0.59); #Neutrophils 6.1 thou/uL (1.40-6.50); %Basophils 1.7 % (0.0-1.0); %Eosinophils 3.1 % (0.0-10.0); %Lymphocytes 20.7 % (21.0-51.0); %Monocytes 7.4 % (0.0-10.0); %Neutrophils 67.1 % (42.0-75.0); Hemoglobin 10.6 g/dL (12.0-16.0); Mean Corpuscular HGB CONC 30.8 g/dL (32.0-36.0); Mean Corpuscular Hemoglobin 31.8 pg (27.0-31.0); Mean Platelet Volume 9.5 fL (7.4-10.4); Platelet Count 222 thou/uL (130-400); RBC Distribution Width 13.4 % (11.5-14.5); Red Blood Cell (RBC) Count 3.33 mill/uL (4.20-5.40)
--- NOTE | 2019-05-27 13:27 | RAD ---
XR Chest 1 View Portable HISTORY: Shortness of breath. Syncope. Dizziness COMPARISON: 12/03/2017 FINDINGS: There is continued elevation the right hemidiaphragm. The heart is enlarged. No lobar conso lidation, pneumothoraces, bryant pulmonary edema or pleural effusions are seen. There is no evidence of bryant pulmonary edema.. IMPRESSION: No radiographic evidence of acute cardiopulmonary process.
[2019-05-27 13:52] LABS: ALT (SGPT) Less than 7 U/L (8-55); AST (SGOT) 13 U/L (5-34); Albumin 3.6 g/dL (3.4-4.8); Alkaline Phosphatase 77 U/L (40-110); Anion Gap 19 mmol/L (10-20); BUN (Urea Nitrogen) 71 mg/dL (9.8-20.1); Bilirubin, Total 0.8 mg/dL (0.2-1.2); Calc. Creatinine Clearance 0 mL/min (70-130); Calcium 8.1 mg/dL (7.8-10.44); Carbon Dioxide 28 mmol/L (23-31); Chloride 97 mmol/L (98-107); Estimated GFR-MDRD 3; Globulin 3.2 g/dL (2.4-3.5); Glucose 104 mg/dL (80-115); Potassium 4.3 mmol/L (3.5-5.1); Protein, Total 6.8 g/dL (6.0-8.3); Sodium 140 mmol/L (136-145)
[2019-05-27 14:45] LABS: CKMB 1.9 ng/mL (0-6.6)
== END 2019-05-27 14:10 | disposition home or self-care (01) ==
LOC: ERS 12:03
DX: I12.0 Hypertensive chronic kidney disease with stage 5 chronic kidney disease or end stage renal disease (principal); N18.6 End stage renal disease; I48.91 Unspecified atrial fibrillation; Z79.899 Other long term (current) drug therapy
CPT/HCPCS: 36415; 71045; 80053; 82553; 83880; 84484; 85025; 93005; 94760

== ENCOUNTER 2019-07-11 14:39 | Inpatient (IN) | payer MEDICARE ==
[2019-07-11 15:30] LABS: #Basophils 0.2 thou/uL (0.0-0.2); #Eosinphils 0.4 thou/uL (0.0-0.7); #Lymphocytes 1.7 thou/uL (1.20-3.40); #Monocytes 0.7 thou/uL (0.11-0.59); #Neutrophils 5.5 thou/uL (1.40-6.50); %Eosinophils 4.9 % (0.0-10.0); %Lymphocytes 20.5 % (21.0-51.0); %Monocytes 8.4 % (0.0-10.0); %Neutrophils 64.2 % (42.0-75.0); Hemoglobin 11.2 g/dL (12.0-16.0); Mean Corpuscular HGB CONC 32.2 g/dL (32.0-36.0); Mean Corpuscular Hemoglobin 32.5 pg (27.0-31.0); Mean Platelet Volume 9.9 fL (7.4-10.4); Platelet Count 225 thou/uL (130-400); RBC Distribution Width 13.6 % (11.5-14.5); Red Blood Cell (RBC) Count 3.44 mill/uL (4.20-5.40); White Blood Cell (WBC) Count 8.5 thou/uL (4.8-10.8)
--- NOTE | 2019-07-11 15:53 | ULT ---
Exam: RIGHT LOWER EXTREMITY VENOUS ULTRASOUND WITH DOPPLER: COMPARISON: 09/18/2016 HISTORY: Right leg edema, pain, swelling and erythema. TECHNIQUE: Grayscale, color flow, Doppler imaging and spectral waveform analysis performed the right lower extremity venous system FINDINGS: There is compressibility, presence of flow and augmentation involving the common femoral vein, femora l vein, and popliteal vein. There is flow in the profunda femoral vein and greater saphenous vein. There is flow in the posterior tibial vein. Note, there is pulsatile wave forms throughout the entire visualized right lower extremity deep venous system. There is evidence of extensive soft tissue edema IMPRESSION: 1. Nonspecific pulsatile in the right lower extremity deep venous system. Correlate for right heart f ailure 2. No evidence of thrombus. 3. Extensive soft tissue edema. Transcribed Date/Time: 07/11/2019 4:34 PM
[2019-07-11 16:07] LABS: ALT (SGPT) Less than 7 U/L (8-55); AST (SGOT) 12 U/L (5-34); Albumin 3.7 g/dL (3.4-4.8); Alkaline Phosphatase 72 U/L (40-110); Anion Gap 19 mmol/L (10-20); BUN (Urea Nitrogen) 33 mg/dL (9.8-20.1); Bilirubin, Total 1.1 mg/dL (0.2-1.2); Calc. Creatinine Clearance 0 mL/min (70-130); Calcium 8.7 mg/dL (7.8-10.44); Carbon Dioxide 27 mmol/L (23-31); Chloride 96 mmol/L (98-107); Estimated GFR-MDRD 4; Globulin 3.1 g/dL (2.4-3.5); Glucose 91 mg/dL (80-115); Potassium 3.6 mmol/L (3.5-5.1); Protein, Total 6.8 g/dL (6.0-8.3); Sodium 138 mmol/L (136-145)
[2019-07-11] MEDS ORDERED: Cefepime 2 GM VIAL ONE ×2 (16:55→16:56)
[2019-07-11] MEDS ORDERED: Vancomycin HCl 1.25 GM in Sodium Chloride 0.9% 250 ML 250 ML IVPB SCH (17:00)
[2019-07-11] MEDS ORDERED: hydrALAZINE 20 MG/ML VIAL ONE (19:19)
[2019-07-11] MEDS ORDERED: Ondansetron ODT 4 MG TAB SL PRN (20:14)
[2019-07-11] MEDS ORDERED: Ondansetron PF 4 MG/2 ML Vial IVP PRN (20:14)
[2019-07-11] MEDS ORDERED: Acetaminophen 325 MG TAB PO PRN (20:14)
[2019-07-11] MEDS ORDERED: HYDROcodone/Acetaminophen 5/325 mg Tablet PO PRN ×3 (20:14→20:19)
[2019-07-11] MEDS ORDERED: Fentanyl 100 MCG/2 ML VIAL SLOW IVP PRN (20:15)
[2019-07-11] MEDS ORDERED: Ondansetron ODT 4 MG TAB PO PRN (20:19)
[2019-07-11] MEDS ORDERED: hydrALAZINE 20 MG/ML VIAL SLOW IVP PRN (20:19)
--- NOTE | 2019-07-11 20:32 | HP ---
PRIMARY CARE PHYSICIAN: The patient currently does not have a primary care physician. CHIEF COMPLAINT: Pain and swelling in the right leg. HISTORY OF PRESENT ILLNESS: Ms. Berry is a very pleasant 63-year-old female, who has a history of end-stage renal disease, on hemodialysis. She says that on Friday during dialysis, she started noticing some pain in her right leg. She also noticed that it looked a bit reddish. She denies having any trauma or injury to the leg, but the swelling and pain continued and she started noticing a low-grade temperature and as a result, she came to the emergency room for evaluation. In the ER, she had a lower extremity venous Doppler, which was negative for DVT and she is being admitted for cellulitis. She denies any nausea, vomiting. No chest pain. No shortness of breath. No other associated symptoms. She has maintained a good appetite during this time. REVIEW OF SYSTEMS: All systems were reviewed and are negative except for that mentioned in the history of present illness. PAST MEDICAL HISTORY: Significant for paroxysmal atrial fibrillation, chronic diastolic heart failure, hypertension, seizures are listed in her past medical history, but she denies a history of seizures, pulmonary hypertension. She says she does not have parathyroid cancer, but had what sounds like an adenoma with her right parathyroid removed. History of cerebrovascular accident, and end-stage renal disease, on hemodialysis. PAST SURGICAL HISTORY: She has had an ablation of atrial fibrillation. She had a pulmonary decortication as well as a PleurX catheter placed. She says she has had bilateral nephrectomies. She has had a splenectomy, an AV fistula, and tonsillectomy. ALLERGIES: SHE SAYS SHE IS NOT ALLERGIC TO ANY MEDICATIONS. SHE SAYS IODINE AND LEVAQUIN WERE LISTED, BUT THESE WERE NOT ALLERGIES. SHE SAID SHE HAS TAKEN THEM WITHOUT ANY PROBLEMS. SOCIAL HISTORY: She is a nonsmoker and nondrinker. Does not use any type of tobacco products. She is common-law and has been living with her significant other for the past 12 years and she has one child of her own and her common-law has 6 children and she would like to be a full code. FAMILY HISTORY: Significant for kidney stones. CURRENT MEDICATIONS: She was not sure of the names, but says the ER physician took them down or the staff and these include; 1. Metoprolol 100 mg twice daily. 2. Losartan 25 mg daily. 3. Eliquis 2.5 mg twice a day. 4. Aspirin 81 mg a day. PHYSICAL EXAMINATION: GENERAL: She is alert and oriented. She is chronically ill in appearance. She is well developed, however. VITAL SIGNS: Blood pressure is ranging from 204/99, heart rate 77, respiratory rate of 28, temperature is 99. HEENT: Pupils are equal, round, and reactive. Extraocular muscles are intact. Her sclerae anicteric. Throat, no erythema, no exudates. She has poor dentition. NECK: There is no adenopathy, no bruits. LUNGS: She has some mild expiratory wheeze. Occasional rhonchi, but no bryant rales. CARDIOVASCULAR: She has a normal S1, S2. There is no S3 or S4. No murmurs, clicks or rubs. ABDOMEN: Soft, nontender, and nondistended. Positive for bowel sounds. No rebound. No guarding. No organomegaly. EXTREMITIES: There is no clubbing on her extremities. She has bilateral 2+ pitting edema and on the right lower extremity, there is erythema up to right below the knee. There is warmth as well. We were able to palpate the dorsalis pedis pulse as well as the posterior tibial bilaterally. On the left, there is no erythema, but she does have significant edema in the left foot to the point of 2 to 3+ pitting edema. No obvious skin lesions however. NEUROLOGIC: The exam is nonfocal. SKIN AND INTEGUMENT: There was no obvious lesions. LABORATORY DATA: White blood cell count is 8.5, hemoglobin 11.2, hematocrit is 34.8, and platelet count is 225. Sodium 138, potassium 3.6, chloride is 96, CO2 is 27, BUN of 33, creatinine 10.2, glucose is 91. She had a lower extremity venous Doppler, which was negative for DVT. ASSESSMENT: This is a pleasant 63-year-old female, who notes lower extremity edema and erythema. The venous ultrasound is negative for DVT and most likely the findings are consistent with cellulitis. Given her multiple comorbid conditions including end-stage renal disease, she will be admitted instead of treated outpatient. She will be started on IV Rocephin and vancomycin. The area has already been marked and we will follow this clinically. I suspect within approximately 2 days, she should be stable for discharge. 1. End-stage renal disease, on hemodialysis. We will consult her Storage Battery Inspector, Dr. Mello for maintenance hemodialysis. 2. Atrial fibrillation. Her heart rate has been controlled. We will continue metoprolol. It is also noted that she is on chronic anticoagulation with Eliquis. 3. Hypertension. We will reconcile and restart her home medications. Job ID: [id number]
[2019-07-11] MEDS: Sodium Chloride 0.9% 1,000 ML IV SCH ×2 (20:37→21:18)
[2019-07-11] MEDS ORDERED: HOLD VANCOMYCIN FOR LEVEL >20 FS SCH (20:45)
[2019-07-11] MEDS ORDERED: Vancomycin 1 GM in Premix Bag 1 BAG IVPB SCH ×2 (20:45→21:00)
[2019-07-11] MEDS ORDERED: Vancomycin HCl 500 MG in Sodium Chloride 0.9% 100 ML IVPB SCH (20:45)
[2019-07-11] MEDS ORDERED: Vancomycin HCl 250 MG in Sodium Chloride 0.9% 100 ML IVPB SCH (20:45)
[2019-07-11] MEDS ORDERED: Vancomycin HCl 750 MG in Sodium Chloride 0.9% 250 ML 250 ML IVPB SCH (20:45)
[2019-07-11] MEDS: Metoprolol Tartrate 50 MG TAB PO SCH (20:57)
[2019-07-11] MEDS: Apixaban 2.5 MG TAB PO SCH (20:57)
[2019-07-11] MEDS: cefTRIAXone\\ROCEPHIN 1 GM in Sodium Chloride 0.9% 100 ML IVPB SCH ×2 (20:57→22:48)
[2019-07-12] MEDS: Acetaminophen 325 MG TAB PO PRN ×2 (00:41→11:33)
[2019-07-12 03:53] VITALS: BMI 23.6
[2019-07-12 05:14] LABS: #Basophils 0.2 thou/uL (0.0-0.2); #Eosinphils 0.2 thou/uL (0.0-0.7); #Lymphocytes 1.3 thou/uL (1.20-3.40); #Monocytes 0.8 thou/uL (0.11-0.59); #Neutrophils 6.9 thou/uL (1.40-6.50); %Basophils 1.7 % (0.0-1.0); %Eosinophils 2.6 % (0.0-10.0); %Lymphocytes 13.6 % (21.0-51.0); %Monocytes 8.3 % (0.0-10.0); %Neutrophils 73.8 % (42.0-75.0); Hemoglobin 10.8 g/dL (12.0-16.0); Mean Corpuscular HGB CONC 32.7 g/dL (32.0-36.0); Mean Corpuscular Hemoglobin 32.8 pg (27.0-31.0); Mean Platelet Volume 9.7 fL (7.4-10.4); Platelet Count 202 thou/uL (130-400); RBC Distribution Width 13.5 % (11.5-14.5); Red Blood Cell (RBC) Count 3.28 mill/uL (4.20-5.40); White Blood Cell (WBC) Count 9.3 thou/uL (4.8-10.8)
[2019-07-12 05:37] LABS: Anion Gap 20 mmol/L (10-20); BUN (Urea Nitrogen) 39 mg/dL (9.8-20.1); Calc. Creatinine Clearance 5 mL/min (70-130); Calcium 8.1 mg/dL (7.8-10.44); Carbon Dioxide 25 mmol/L (23-31); Chloride 97 mmol/L (98-107); Estimated GFR-MDRD 4; Glucose 98 mg/dL (80-115); Potassium 3.8 mmol/L (3.5-5.1); Sodium 138 mmol/L (136-145)
[2019-07-12] MEDS ORDERED: Non-Formulary Item 1 EACH (Losartan Potassium [Cozaar] 100 MG) PO SCH (09:00)
[2019-07-12] MEDS ORDERED: Epoetin (ESRD) 20,000 UNITS/ML SC SCH (10:00)
--- NOTE | 2019-07-12 10:18 | CON ---
DATE OF CONSULTATION: HISTORY OF PRESENT ILLNESS: Ms. Berry is a 63-year-old white female with ESRD, admitted for right leg pain and swelling. She was diagnosed with cellulitis. Empiric IV antibiotics have been started. In addition, she has been ruled out for DVT. We are being consulted for management of her ESRD. The patient is currently dialyzing today. REVIEW OF SYSTEMS: Positive for right leg swelling and erythema. Denies any fever. No chest pain or shortness of breath. Appetite and energy level are fair. No nausea. No vomiting. No diarrhea. No constipation. No productive cough. No dysuria. Appetite fair. No headache. No diplopia. No sore throat. No runny nose. MEDICATIONS: The patient is currently on: 1. Eliquis 2.5 mg p.o. b.i.d. 2. Aspirin 81 mg daily. 3. Ceftriaxone 1 g IV daily. 4. Famotidine 20 mg daily. 5. Fentanyl 50 mcg IV q.12 p.r.n. 6. Hydralazine 10 mg IV q.4 p.r.n. 7. Hydrocodone/acetaminophen 5/325 q.4 p.r.n. 8. Losartan 100 mg daily. 9. Metoprolol 100 mg p.o. b.i.d. 10. Zofran 4 mg q.6 p.r.n. 11. Vancomycin IV as directed. PAST MEDICAL HISTORY: ESRD from a presumed hypertensive nephropathy-maintenance hemodialysis Friday, Friday, Friday. Longstanding hypertension, history of chronic atrial fibrillation, history of seizure disorder, status post CHF, hyperlipidemia. PAST SURGICAL HISTORY: Status post AV fistula placement, status post cuffed hemodialysis catheter placement, status post splenectomy, status post parathyroidectomy, status post tonsillectomy, status post left nephrectomy, status post cardiac ablation therapy, status post cardiac cath, status post chest tube placement, status post AV fistula placement, status post pulmonary decortication. SOCIAL HISTORY: The patient lives in [place]. , 2 children. She is a retired [employer]. Lives with her . No history of smoking. No alcohol intake. No drug abuse. Status post multiple blood transfusion. ALLERGIES: DYE AND LEVAQUIN. TRAUMA: None. IMMUNIZATION: Up to date. HOSPITALIZATIONS: Please see past medical history. FAMILY HISTORY: No family history of ESRD. PHYSICAL EXAMINATION: VITAL SIGNS: Blood pressure is 156/80 with a heart rate of 64, respiratory rate 17, temperature 97.3, pulse ox 93%. GENERAL: She is noted to be awake, alert, comfortable, not in overt distress. SKIN: Adequate turgor. HEENT: She has pinkish conjunctivae. Anicteric sclerae. No neck mass. No carotid bruits. No JVD. CHEST: No deformities. LUNGS: Decreased breath sounds. HEART: Normal sinus rhythm. No murmur. No gallops. No rubs. ABDOMEN: Globular, soft, nontender. No masses. EXTREMITIES: No edema, no deformities. LABORATORY DATA: Laboratories of July 12, 2019; white count 9.3, hemoglobin 10.8. Sodium 138, potassium 3.8, chloride 97, carbon dioxide 25, BUN 39, creatinine 10.75, glucose 89, calcium 8.1. ASSESSMENT AND PLAN: 1. End-stage renal disease, stable. We will continue current hemodialysis regimen. Fluid removal as tolerated by the patient. 2. Anemia. Resume back her weekly Epogen at 7500 units subcu every week. 3. Right leg cellulitis, on empiric IV antibiotics. Blood culture on 07/11/2019, so far shows no growth to date. 4. Overall, agree with current management. Job ID: [id number]
[2019-07-12] MEDS ORDERED: EPOETIN ALFA-EPBX (ESRD) 4,000 UNIT/ML VIAL SC SCH (12:00)
[2019-07-12] MEDS: Losartan 25 MG TAB PO SCH (13:12)
[2019-07-12] MEDS: Apixaban 2.5 MG TAB PO SCH ×2 (13:12→22:06)
[2019-07-12] MEDS: Famotidine 20 MG TAB PO SCH (13:13)
[2019-07-12] MEDS: Aspirin 81 mg Enteric Coated Tablet PO SCH (13:13)
[2019-07-12] MEDS: Metoprolol Tartrate 50 MG TAB PO SCH ×2 (13:13→22:06)
--- NOTE | 2019-07-12 15:13 | PDOC.HOSPP ---
- Subjective Encounter Date: 07/12/19 Encounter Time: 15:11 Subjective: Ms. Berry was seen today in follow-up of cellulitis of the right lower extremity. She notes less swelling and less redness. She does not have any new complaints. - Objective Vital Signs & Weight: Vital Signs (12 hours) Temp Pulse Resp BP BP Pulse Ox 07/12/19 13:00 97.4 F L 71 16 171/77 H 96 07/12/19 07:09 97.3 F L 64 17 156/80 H 93 L 07/12/19 04:00 97.6 F 64 16 162/75 H 95 Weight Weight 129 lb I&O: 07/11/19 07/12/19 07/13/19 06:59 06:59 06:59 Intake Total 150 Balance 150 Result Diagrams: 07/12/19 04:58 07/12/19 04:58 Hospitalist ROS - Medication Medications: Active Medications Generic Name Dose Route Start Last Admin Trade Name Freq PRN Reason Stop Dose Admin Acetaminophen 650 mg 07/11/19 20:19 07/12/19 11:33 Tylenol PO 650 mg Q4H PRN Administration Headache/Fever/Mild Pain (1-3) Apixaban 2.5 mg 07/11/19 21:00 07/12/19 13:12 Eliquis PO 2.5 mg BID CRYS Administration Aspirin 81 mg 07/12/19 09:00 07/12/19 13:13 Ecotrin PO 81 mg DAILY CRYS Administration Epoetin Luca-epbx 7,500 unit 07/12/19 12:00 07/12/19 13:34 Retacrit SC 7,500 unit Q7D CRYS Administration Famotidine 20 mg 07/12/19 09:00 07/12/19 13:13 Pepcid PO 20 mg DAILY CRYS Administration Ceftriaxone Sodium 1 gm/ 100 mls @ 200 mls/hr 07/11/19 21:00 07/11/19 22:48 Sodium Chloride IVPB 100 mls Q24HR CRYS Administration Vancomycin HCl 250 mg/ Sodium 100 mls @ 100 mls/hr 07/11/19 20:45 07/12/19 11 :00 Chloride IVPB 100 mls WILLCALL CRYS Administration Losartan Potassium 100 mg 07/12/19 09:00 07/12/19 13:12 Cozaar PO 100 mg DAILY CRYS Administration Metoprolol Tartrate 100 mg 07/11/19 21:00 07/12/19 13:13 Lopressor PO 100 mg BID CRYS Administration - Exam Eye: PERRL Heart: RRR, no murmur, no gallops, no rubs, normal peripheral pulses Respiratory: CTAB, no wheezes, no rales, no ronchi, normal chest expansion, no tachypnea, normal percussion Gastrointestinal: soft, non-tender, non-distended, normal bowel sounds, no palpable masses, no hepatomegaly Extremities: 2+ LE edema (2-3+ pitting edema in the right lower extremity to the calf, mild erythema, which is improved. 2+ pitting edema in the left foot- palpable pulses bilaterally) Hosp A/P (1) Cellulitis of right leg Code(s): L03.115 - CELLULITIS OF RIGHT LOWER LIMB Status: Acute (2) Diastolic CHF Code(s): I50.30 - UNSPECIFIED DIASTOLIC (CONGESTIVE) HEART FAILURE Status: Chronic (3) ESRD (end stage renal disease) on dialysis Code(s): N18.6 - END STAGE RENAL DISEASE; Z99.2 - DEPENDENCE ON RENAL DIALYSIS Status: Chronic (4) Hypertension Code(s): I10 - ESSENTIAL (PRIMARY) HYPERTENSION Status: Chronic Qualifiers: Hypertension type: essential hypertension Qualified Code(s): I10 - Essential (primary) hypertension (5) Malnutrition of moderate degree Code(s): E44.0 - MODERATE PROTEIN-CALORIE MALNUTRITION Status: Chronic - Plan * Cellulitis of the right lower extremity- continue Rocephin and Vancomycin * Continue conservative measures for dependent edema. * ESRD- continue maintenance HD * HTN- blood pressure is elevated- will monitor- and re-start her home medications * Chronic diastolic heart failure- compensated
[2019-07-12] MEDS: cefTRIAXone\\ROCEPHIN 1 GM in Sodium Chloride 0.9% 100 ML IVPB SCH (22:06)
[2019-07-13 04:25] VITALS: TEMP 97.7
[2019-07-13 05:10] LABS: #Basophils 0.1 thou/uL (0.0-0.2); #Eosinphils 0.4 thou/uL (0.0-0.7); #Lymphocytes 1.2 thou/uL (1.20-3.40); #Monocytes 0.6 thou/uL (0.11-0.59); #Neutrophils 5.6 thou/uL (1.40-6.50); %Basophils 0.8 % (0.0-1.0); %Eosinophils 5.4 % (0.0-10.0); %Lymphocytes 15.6 % (21.0-51.0); %Monocytes 7.3 % (0.0-10.0); Hemoglobin 11.4 g/dL (12.0-16.0); Mean Corpuscular HGB CONC 32.1 g/dL (32.0-36.0); Mean Corpuscular Hemoglobin 32.8 pg (27.0-31.0); Mean Platelet Volume 10.4 fL (7.4-10.4); Platelet Count 187 thou/uL (130-400); RBC Distribution Width 13.5 % (11.5-14.5); Red Blood Cell (RBC) Count 3.47 mill/uL (4.20-5.40); White Blood Cell (WBC) Count 7.9 thou/uL (4.8-10.8)
[2019-07-13 05:29] LABS: Anion Gap 15 mmol/L (10-20); BUN (Urea Nitrogen) 19 mg/dL (9.8-20.1); Calc. Creatinine Clearance 8 mL/min (70-130); Calcium 8.4 mg/dL (7.8-10.44); Carbon Dioxide 30 mmol/L (23-31); Chloride 96 mmol/L (98-107); Estimated GFR-MDRD 6; Glucose 98 mg/dL (80-115); Sodium 137 mmol/L (136-145)
[2019-07-13 07:37] VITALS: BP 178/87
[2019-07-13] MEDS: Famotidine 20 MG TAB PO SCH (08:37)
[2019-07-13] MEDS: Metoprolol Tartrate 50 MG TAB PO SCH (08:37)
[2019-07-13] MEDS: Losartan 25 MG TAB PO SCH (08:37)
[2019-07-13] MEDS: Aspirin 81 mg Enteric Coated Tablet PO SCH (08:37)
[2019-07-13] MEDS: Apixaban 2.5 MG TAB PO SCH (08:40)
--- NOTE | 2019-07-13 09:27 | PRG ---
DATE OF SERVICE: 07/13/2019 SUBJECTIVE: Ms. Berry is a 63-year-old white female with ESRD and followed up by the [facility] for her hemodialysis management of her ESRD. Initially, she was admitted for cellulitis, currently on IV antibiotics. No other complaints today. No chest pain or shortness of breath. She underwent dialysis yesterday without any difficulty. OBJECTIVE: VITAL SIGNS: Blood pressure 178/87, heart rate 64, respiratory rate 18, temperature 97.7, pulse ox 96%. GENERAL: She is noted to be awake, alert, comfortable, not in overt distress. Skin adequate turgor. HEENT: She has pinkish conjunctivae. Anicteric sclerae. No neck mass. No carotid bruits. No JVD. CHEST: No deformities. LUNGS: Clear breath sounds. HEART: Normal sinus rhythm. No murmur. No gallops or rubs. ABDOMEN: Globular, soft, nontender. No masses. EXTREMITIES: No edema. Mild erythema right leg. MEDICATIONS: July 13, 2019, reviewed. LABORATORY DATA: July 13, 2019; white count 7.9, hemoglobin 11.4. Sodium 137, potassium 4, chloride 96, carbon dioxide 30, BUN 19, creatinine 6.46, glucose 98, calcium 8.4. ASSESSMENT AND PLAN: 1. End-stage renal disease, stable. We will continue current hemodialysis regimen on Friday, Friday, and Friday. She is tolerating treatment, fluid removal only as tolerated. 2. Right leg cellulitis. Currently, patient is on empiric IV antibiotics. She is currently on IV ceftriaxone and vancomycin. 3. So far blood culture on July 11, 2019, showed no growth today. 4. Overall, agree with current management. Job ID: [id number]
--- NOTE | 2019-07-13 15:35 | PDOC.HOSPP ---
- Subjective Encounter Date: 07/13/19 Encounter Time: 15:32 Subjective: Ms. Berry was seen today in follow-up of cellulitis of the right leg. No new complaints. She feels it has gotten much better. - Objective Vital Signs & Weight: Vital Signs (12 hours) Temp Pulse Resp BP BP Pulse Ox 07/13/19 08:00 96 07/13/19 07:33 97.7 F 64 18 178/87 H 96 07/13/19 04:24 97.7 F 64 18 163/85 H 96 Weight Weight 129 lb I&O: 07/12/19 07/13/19 07/14/19 06:59 06:59 06:59 Intake Total 150 560 Output Total 2400 Balance 150 -1840 Result Diagrams: 07/13/19 04:39 07/13/19 04:39 Hospitalist ROS - Medication Medications: Active Medications Generic Name Dose Route Start Last Admin Trade Name Freq PRN Reason Stop Dose Admin Acetaminophen 650 mg 07/11/19 20:19 07/12/19 11:33 Tylenol PO 650 mg Q4H PRN Administration Headache/Fever/Mild Pain (1-3) Apixaban 2.5 mg 07/11/19 21:00 07/13/19 08:40 Eliquis PO 2.5 mg BID CRYS Administration Aspirin 81 mg 07/12/19 09:00 07/13/19 08:37 Ecotrin PO 81 mg DAILY CRYS Administration Epoetin Luca-epbx 7,500 unit 07/12/19 12:00 07/12/19 13:34 Retacrit SC 7,500 unit Q7D CRYS Administration Famotidine 20 mg 07/12/19 09:00 07/13/19 08:37 Pepcid PO 20 mg DAILY CRYS Administration Ceftriaxone Sodium 1 gm/ 100 mls @ 200 mls/hr 07/11/19 21:00 07/12/19 22:06 Sodium Chloride IVPB 100 mls Q24HR CRYS Administration Vancomycin HCl 250 mg/ Sodium 100 mls @ 100 mls/hr 07/11/19 20:45 07/12/19 11 :00 Chloride IVPB 100 mls WILLCALL CRYS Administration Losartan Potassium 100 mg 07/12/19 09:00 07/13/19 08:37 Cozaar PO 100 mg DAILY CRYS Administration Metoprolol Tartrate 100 mg 07/11/19 21:00 07/13/19 08:37 Lopressor PO 100 mg BID CRYS Administration Ondansetron HCl 4 mg 07/11/19 20:19 07/13/19 14:48 Zofran Odt PO 4 mg Q6H PRN Administration Nausea/Vomiting Sodium Chloride 10 ml 07/12/19 21:00 07/13/19 10:33 Flush - Normal Saline IVF Not Given Q12HR CRYS - Exam Eye: PERRL Heart: RRR, no murmur, no gallops, no rubs, normal peripheral pulses Respiratory: CTAB, no wheezes, no rales, no ronchi, normal chest expansion Gastrointestinal: soft, non-tender, non-distended, normal bowel sounds Extremities: 2+ LE edema (Bilateral edema, but much improved. the erythema has improved) Hosp A/P (1) Cellulitis of right leg Code(s): L03.115 - CELLULITIS OF RIGHT LOWER LIMB Status: Acute (2) Diastolic CHF Code(s): I50.30 - UNSPECIFIED DIASTOLIC (CONGESTIVE) HEART FAILURE Status: Chronic (3) ESRD (end stage renal disease) on dialysis Code(s): N18.6 - END STAGE RENAL DISEASE; Z99.2 - DEPENDENCE ON RENAL DIALYSIS Status: Chronic (4) Hypertension Code(s): I10 - ESSENTIAL (PRIMARY) HYPERTENSION Status: Chronic Qualifiers: Hypertension type: essential hypertension Qualified Code(s): I10 - Essential (primary) hypertension (5) Malnutrition of moderate degree Code(s): E44.0 - MODERATE PROTEIN-CALORIE MALNUTRITION Status: Chronic - Plan * Cellulitis of the right lower extremity- clinically much improved * Will transition to an oral antibiotic * Continue conservative measures for dependent edema. * ESRD- continue maintenance HD * stable for discharge home and close out patient follow-up
--- NOTE | 2019-07-13 16:43 | DIS ---
DATE OF ADMISSION: 07/11/2019 DATE OF DISCHARGE: 07/13/2019 DISCHARGE DISPOSITION: Home. PRIMARY DISCHARGE DIAGNOSES: 1. Cellulitis of the right lower extremity. 2. End-stage renal disease, on hemodialysis. 3. Hypertension. 4. History of pulmonary hypertension. 5. Parathyroid adenoma. DISCHARGE MEDICATIONS: Include; 1. Keflex 500 mg twice daily for 10 days. 2. Eliquis 2.5 mg twice daily. 3. Aspirin 81 mg daily. 4. Losartan 100 mg p.o. daily. 5. Lopressor 100 mg twice a day. 6. Zofran 4 mg q.6 as needed. 7. Florastor 250 mg p.o. daily. CODE STATUS: Full code. ALLERGIES: NO KNOWN DRUG ALLERGIES. IMAGING DONE DURING HOSPITAL STAY: The patient had a lower extremity venous Doppler, which was negative for DVT. HOSPITAL COURSE: Ms. Berry is a very pleasant 63-year-old female, who presented to the emergency room with a sudden onset of swelling and pain in the right lower extremity. She also noted feeling feverish off and on. She was evaluated in the ER. DVT was ruled out of the venous Doppler and she was admitted and treated for cellulitis. She improved over the course of the next couple of days. The erythema and swelling improved dramatically on IV Rocephin and vancomycin and she was then transitioned to oral Keflex and discharged home. She plans to follow up with the primary care physician in the area. She already has an appointment scheduled for early July. She cannot remember the doctor's name and also to follow up with Dr. Mello as instructed for maintenance hemodialysis. Job ID: [id number]
== END 2019-07-13 17:15 | disposition home or self-care (01) | DRG 602 ==
LOC: ERS 14:39 → T4-B 17:28
PROVIDERS: ADMIT Internal Medicine; ATTEND Internal Medicine
PROC: 5A1D70Z Performance of Urinary Filtration, Intermittent, Less than 6 Hours Per Day (ICD-10-PCS; principal; 2019-07-12)
DX: L03.115 Cellulitis of right lower limb (principal); N18.6 End stage renal disease; I12.0 Hypertensive chronic kidney disease with stage 5 chronic kidney disease or end stage renal disease; I50.32 Chronic diastolic (congestive) heart failure; E44.0 Moderate protein-calorie malnutrition; I48.0 Paroxysmal atrial fibrillation; I27.20 Pulmonary hypertension, unspecified; E78.5 Hyperlipidemia, unspecified; G40.909 Epilepsy, unspecified, not intractable, without status epilepticus; D63.1 Anemia in chronic kidney disease; D35.1 Benign neoplasm of parathyroid gland; Z99.2 Dependence on renal dialysis; Z79.01 Long term (current) use of anticoagulants; Z79.82 Long term (current) use of aspirin; Z79.899 Other long term (current) drug therapy; Z68.23 Body mass index [BMI] 23.0-23.9, adult; Z90.49 Acquired absence of other specified parts of digestive tract
CPT/HCPCS: 36415; 80048; 80053; 80202; 83605; 85025; 87040; 90935; 96361; 96365; 96367; 96375; G0257; J0360; J0692; J0696; J2405; J3370; J3490; J7050; Q0162; Q5105

== ENCOUNTER 2019-08-26 13:56 | Emergency (ER) | payer MEDICARE ==
--- NOTE | 2019-08-26 15:52 | CT ---
CT HEAD WITHOUT CONTRAST: 08/26/19 INDICATIONS: Trauma. Fall with injury to head. COMPARISON: CT head of 02/05/19. Ventricles are mildly prominent in size. Ventricular size has increased slightly since the prior exam . Moderately severe chronic ischemic white matter change. No mass or infarct. Evidence of old lacuna r infarcts in the deep white matter and basal ganglia regions. Paranasal sinuses appear clear. IMPRESSION: 1. Moderate to severe chronic ischemic white matter change. Evidence of old lacunar infarcts in the basal ganglia, more prominent on the left. Acute lacunar infarcts cannot be excluded. 2. Mild ventriculomegaly. Consider [facility] clinically. POS: YAZAN
== END 2019-08-26 16:14 | disposition home or self-care (01) ==
LOC: ERS 13:56
DX: S00.83XA Contusion of other part of head, initial encounter (principal); I12.0 Hypertensive chronic kidney disease with stage 5 chronic kidney disease or end stage renal disease; N18.6 End stage renal disease; I48.91 Unspecified atrial fibrillation; Z86.73 Personal history of transient ischemic attack (TIA), and cerebral infarction without residual deficits; Z79.01 Long term (current) use of anticoagulants; Z79.82 Long term (current) use of aspirin; Z79.899 Other long term (current) drug therapy; Z99.2 Dependence on renal dialysis; W19.XXXA Unspecified fall, initial encounter; Y92.000 Kitchen of unspecified non-institutional (private) residence as the place of occurrence of the external cause
CPT/HCPCS: 70450

== ENCOUNTER 2020-02-03 04:31 | Emergency (ER) | payer MEDICARE ==
[2020-02-03] MEDS ORDERED: Tranexamic Acid 1,000 MG/10 ML VIAL ONE (04:44)
[2020-02-03 05:43] LABS: #Basophils 0.1 thou/uL (0.0-0.2); #Eosinphils 0.3 thou/uL (0.0-0.7); #Lymphocytes 1.7 thou/uL (1.20-3.40); #Monocytes 0.7 thou/uL (0.11-0.59); #Neutrophils 4.8 thou/uL (1.40-6.50); %Basophils 1.3 % (0.0-1.0); %Eosinophils 3.7 % (0.0-10.0); %Lymphocytes 22.6 % (21.0-51.0); %Monocytes 9.4 % (0.0-10.0); %Neutrophils 63.1 % (42.0-75.0); Hemoglobin 11.4 g/dL (12.0-16.0); Mean Corpuscular HGB CONC 32.3 g/dL (32.0-36.0); Mean Corpuscular Hemoglobin 33.5 pg (27.0-31.0); Mean Platelet Volume 8.8 fL (7.4-10.4); Platelet Count 232 thou/uL (130-400); RBC Distribution Width 13.2 % (11.5-14.5); Red Blood Cell (RBC) Count 3.41 mill/uL (4.20-5.40); White Blood Cell (WBC) Count 7.7 thou/uL (4.8-10.8)
[2020-02-03 06:05] LABS: ALT (SGPT) Less than 7 U/L (8-55); AST (SGOT) 15 U/L (5-34); Albumin 3.8 g/dL (3.4-4.8); Alkaline Phosphatase 73 U/L (40-110); Anion Gap 13 mmol/L (10-20); BUN (Urea Nitrogen) 24 mg/dL (9.8-20.1); Calc. Creatinine Clearance 0 mL/min (70-130); Calcium 8.9 mg/dL (7.8-10.44); Carbon Dioxide 34 mmol/L (23-31); Chloride 98 mmol/L (98-107); Estimated GFR-MDRD 11; Globulin 3.9 g/dL (2.4-3.5); Glucose 90 mg/dL (80-115); Potassium 3.4 mmol/L (3.5-5.1); Protein, Total 7.7 g/dL (6.0-8.3); Sodium 142 mmol/L (136-145)
== END 2020-02-03 06:48 | disposition home or self-care (01) ==
LOC: ERS 04:31
DX: T82.838A Hemorrhage due to vascular prosthetic devices, implants and grafts, initial encounter (principal); I48.91 Unspecified atrial fibrillation; I12.0 Hypertensive chronic kidney disease with stage 5 chronic kidney disease or end stage renal disease; N18.6 End stage renal disease; Z79.899 Other long term (current) drug therapy
CPT/HCPCS: 36415; 80053; 85025; 96372; 99284; J2597

== ENCOUNTER 2020-08-19 16:11 | Emergency (ER) | payer MEDICARE ==
[2020-08-19 16:58] LABS: Hemoglobin 8.3 g/dL (12.0-16.0); Mean Corpuscular HGB CONC 33.1 g/dL (32.0-36.0); Mean Corpuscular Hemoglobin 34.1 pg (27.0-31.0); Mean Platelet Volume 8.6 fL (7.4-10.4); Platelet Count 162 thou/uL (130-400); RBC Distribution Width 11.3 % (11.5-14.5); Red Blood Cell (RBC) Count 2.44 mill/uL (4.20-5.40); White Blood Cell (WBC) Count 5.6 thou/uL (4.8-10.8)
[2020-08-19 17:14] LABS: Band 6 % (5-11); Eosinophils 2 % (0-10); Lymphocytes 14 % (21-51); MDiff Complete? YES; Macrocytosis SLIGHT = 6-15 cells (100X) (0-5/hpf); Monocytes 6 % (0-10); Myelocyte 1 % (0-0); Neutrophil 70 % (42-75); Platelet Morphology Comment Appears Adequate; Polychromasia SLIGHT = 2-3 cells (100X) (0-2/hpf)
[2020-08-19 17:17] LABS: ALT (SGPT) 12 U/L (8-55); AST (SGOT) 25 U/L (5-34); Albumin 2.6 g/dL (3.4-4.8); Alkaline Phosphatase 70 U/L (40-110); Anion Gap 14 mmol/L (10-20); BUN (Urea Nitrogen) 45 mg/dL (9.8-20.1); Bilirubin, Total 0.5 mg/dL (0.2-1.2); Calc. Creatinine Clearance 0 mL/min (70-130); Carbon Dioxide 21 mmol/L (23-31); Chloride 109 mmol/L (98-107); Globulin 2.6 g/dL (2.4-3.5); Glucose 87 mg/dL (80-115); Magnesium 1.7 mg/dL (1.6-2.6); Potassium 3.1 mmol/L (3.5-5.1); Protein, Total 5.2 g/dL (5.8-8.1); Sodium 141 mmol/L (136-145)
[2020-08-19 17:32] LABS: Calcium 5.7 mg/dL (7.8-10.44)
[2020-08-19 17:39] LABS: CKMB 0.8 ng/mL (0-6.6)
== END 2020-08-19 18:13 | disposition home or self-care (01) ==
LOC: ERS 16:11
DX: R55 Syncope and collapse (principal); I48.91 Unspecified atrial fibrillation; I12.0 Hypertensive chronic kidney disease with stage 5 chronic kidney disease or end stage renal disease; N18.6 End stage renal disease; Z99.2 Dependence on renal dialysis
CPT/HCPCS: 36415; 70450; 71045; 72125; 80053; 82553; 83605; 83735; 84484; 85025; 93005

== ENCOUNTER 2020-08-24 09:17 | Outpatient (CLI) | payer MEDICARE | END 2020-08-24 09:18 | disposition home or self-care (01) | LOC: BICRAD 09:17 | PROVIDERS: ATTEND Internal Medicine Nephrology | DX: Z11.1 Encounter for screening for respiratory tuberculosis (principal); J90 Pleural effusion, not elsewhere classified; I51.7 Cardiomegaly | CPT/HCPCS: 71046 ==